=== PATIENT | male | born 1955 | race Caucasian/White ===

== ENCOUNTER 2020-08-02 09:53 | Outpatient (REF) | payer OTHER, SELFPAY ==
[2020-08-02 10:40] LABS: Estimated Average Glucose 140 mg/dL; Hemoglobin A1c % 6.5 %
[2020-08-02 11:01] LABS: Alanine Aminotransferase 16 U/L (0-40); Albumin Level 4.4 g/dL (3.5-5.0); Alkaline Phosphatase 69 U/L (39-117); Aspartate Amino Transferase 17 U/L (5-37); Bilirubin Direct 0.2 mg/dL (0.0-0.5); Bilirubin Total 0.6 mg/dL (0.0-1.0); Blood Urea Nitrogen 20 mg/dL (9-16); Cholesterol 131 mg/dL; Estimated Glomerular Filt Rate 48; Glucose Fasting 100 mg/dL (60-99); HDL Cholesterol 39 mg/dL; LDL Cholesterol Calculated 65 mg/dl; Potassium 5.4 mmol/l (3.3-5.1); Total Protein 6.9 g/dL (6.5-8.0); Triglycerides 138 mg/dL
[2020-08-02 11:51] LABS: Reflex LDLD? No
== END 2020-08-02 09:54 | disposition home or self-care (01) ==
LOC: HO.LNP 09:53
PROVIDERS: Visit Provider Internal Medicine
DX: E11.9 Type 2 diabetes mellitus without complications (principal); E78.00 Pure hypercholesterolemia, unspecified; I25.83 Coronary atherosclerosis due to lipid rich plaque; R79.9 Abnormal finding of blood chemistry, unspecified; E78.5 Hyperlipidemia, unspecified
CPT/HCPCS: 80061; 80076; 82565; 82947; 83036; 84132; 84520

== ENCOUNTER 2020-09-24 15:25 | Outpatient (REF) | payer OTHER, SELFPAY ==
[2020-09-24 15:53] LABS: Potassium 4.5 mmol/l (3.3-5.1)
== END 2020-09-24 15:26 | disposition home or self-care (01) ==
LOC: HO.LNP 15:25
PROVIDERS: Visit Provider Internal Medicine
DX: E87.5 Hyperkalemia (principal)
CPT/HCPCS: 84132

== ENCOUNTER 2021-01-11 09:54 | Outpatient (REF) | payer OTHER, SELFPAY ==
[2021-01-11 09:58] LABS: MANUAL DIFF FLAG NO
[2021-01-11 10:04] LABS: Basophils Absolute Auto 0.1 X10*3/uL (0.0-0.2); Basophils Percent Auto 0.8 % (0-2); Eosinophils Absolute Auto 0.4 X10*3/uL (0.0-0.4); Eosinophils Percent Auto 4.9 % (0-4); Hematocrit 41.8 % (42-52); Hemoglobin 13.5 g/dl (14.0-18.0); Imm Gran Abs Auto 0.03 X10*3/uL (0.00-0.03); Imm Gran Pct Auto 0.3 % (0.0-0.4); Lymphocytes Absolute Auto 1.7 X10*3/uL (1.2-4.9); Lymphocytes Percent Auto 19.5 % (20-40); Mean Corpuscular HGB Conc 32.3 g/dl (31.0-36.0); Mean Corpuscular Hemoglobin 28.6 pg (27.0-33.0); Mean Corpuscular Volume 88.6 fL (80-98); Mean Platelet Volume 9.6 fL (9.4-12.4); Monocytes Absolute Auto 0.7 X10*3/uL (0.1-1.2); Monocytes Percent Auto 7.5 % (2-11); Neutrophils Absolute Auto 5.8 X10*3/uL (2.0-8.3); Platelet Count 304 X10*3/uL (160-400); Red Blood Count 4.72 X10*6/uL (4.60-5.80); Red Cell Distribution Width 13.3 % (11.0-16.0); White Blood Count 8.7 X10*3/uL (4.8-10.8)
[2021-01-11 10:08] LABS: Glucose Urine UA NEG (NEG); Leukocyte Esterase Urine NEG (NEG); Nitrite Urine NEG (NEG); PH 6.5 (5.0-8.0); Urine Blood NEG (NEG); Urine Ketones NEG (NEG); Urine Protein NEG (NEG-TRACE)
[2021-01-11 10:09] LABS: Appearance Urine CLEAR; Color Urine YELLOW
[2021-01-11 10:11] LABS: Estimated Average Glucose 140 mg/dL; Hemoglobin A1c % 6.5 %
[2021-01-11 10:32] LABS: Alanine Aminotransferase 18 U/L (0-40); Alkaline Phosphatase 58 U/L (39-117); Anion Gap 12 (12-20); Aspartate Amino Transferase 15 U/L (5-37); Bilirubin Total 0.5 mg/dL (0.0-1.0); Blood Urea Nitrogen 18 mg/dL (9-16); Calcium 9.2 mg/dL (8.4-10.2); Carbon Dioxide 25 mmol/L (22-29); Chloride 104 mmol/L (96-108); Estimated Glomerular Filt Rate 46; Glucose Fasting 110 mg/dL (60-99); Potassium 5.4 mmol/L (3.3-5.1); Sodium 136 mmol/L (135-145); Total Protein 6.8 g/dL (6.5-8.0)
[2021-01-11 10:33] LABS: Cholesterol 109 mg/dL; HDL Cholesterol 35 mg/dL; LDL Cholesterol Calculated 50 mg/dl; Triglycerides 121 mg/dL
[2021-01-11 10:54] LABS: PSA,Total (Free>4and<10) 1.53 ng/mL (0.00-4.00)
[2021-01-11 11:05] LABS: Creatinine Urine 109.74 mg/dL; Microalbumin Urine < 5.0 mg/L
[2021-01-11 13:10] LABS: Reflex LDLD? No
== END 2021-01-11 09:55 | disposition home or self-care (01) ==
LOC: HO.LNP 09:54
PROVIDERS: Visit Provider Internal Medicine
DX: Z00.00 Encounter for general adult medical examination without abnormal findings (principal); Z12.5 Encounter for screening for malignant neoplasm of prostate; E11.9 Type 2 diabetes mellitus without complications; E78.00 Pure hypercholesterolemia, unspecified; I10 Essential (primary) hypertension
CPT/HCPCS: 80053; 80061; 81003; 82043; 83036; 84153; 85025

== ENCOUNTER 2021-01-26 08:23 | Outpatient (REF) | payer OTHER, SELFPAY ==
--- NOTE | ~2021-01-26 | US_ITS ---
EXAMINATION: US EXTRACRANIAL CAROTID DUPLEX, BILATERAL CLINICAL INFORMATION: Asymptomatic carotid artery stenosis. COMPARISON: 02/23/2020. TECHNIQUE: Real-time ultrasound and Doppler techniques (integrating B-mode 2-D vascular images, Doppler spectral analysis and color-flow Doppler imaging) were utilized to interrogate the extracranial carotid arteries, the vertebral arteries and proximal subclavian arteries bilaterally. The degree of stenosis is determined by criteria similar to NASCET. FINDINGS: Right Side: 1. There is large amount of heterogeneous atherosclerotic plaque seen in the bifurcation/proximal ICA region. 2. The common carotid artery PSV proximally is 106 cm/s and distally 108 cm/s. 3. The proximal internal carotid artery velocities are 230 cm/s systolic and 37 cm/s diastolic. 4. The proximal external carotid artery PSV is 190 cm/s. 5. The vertebral artery shows antegrade flow. 6. The subclavian artery waveforms are normal. Left Side: There is a 40% stenosis of the mid common carotid artery due to heterogeneous plaque. 1. There is large amount of heterogeneous atherosclerotic plaque seen in the bifurcation/proximal ICA region. 2. The common carotid artery PSV proximally is 114 cm/s and distally 159 cm/s. 3. The proximal internal carotid artery velocities are 196 cm/s systolic and 16 cm/s diastolic. 4. The proximal external carotid artery PSV is 207 cm/s. 5. The vertebral artery shows antegrade flow. 6. The subclavian artery waveforms are normal. US/US carotid duplex BI IMPRESSION: 1. RIGHT: Moderate, hemodynamically significant stenosis of the proximal right internal carotid artery corresponding to a 50-79% stenosis by velocity criteria. 2. LEFT: Moderate, hemodynamically significant stenosis of the proximal left internal carotid artery corresponding to a 50-79% stenosis by velocity criteria. 3. Disease category is stable on the right. Disease category has progressed from mild to moderate on the left compared to 02/23/2020.
== END 2021-01-26 08:24 | disposition home or self-care (01) ==
LOC: HO.HMGCX 08:23
PROVIDERS: PCP Internal Medicine; Visit Provider Surgery Vascular Surgery
DX: I65.23 Occlusion and stenosis of bilateral carotid arteries (principal)
CPT/HCPCS: 93880

== ENCOUNTER → 2021-03-09 09:42 | Outpatient (BNVA) | payer OTHER, SELFPAY | PROVIDERS: PCP Internal Medicine; Visit Provider Surgery Vascular Surgery ==

== ENCOUNTER 2021-04-18 09:47 | Outpatient (REF) | payer OTHER, SELFPAY ==
[2021-04-18 10:02] LABS: Potassium 5.3 mmol/L (3.3-5.1)
== END 2021-04-18 09:48 | disposition home or self-care (01) ==
LOC: HO.LNP 09:47
PROVIDERS: Visit Provider Internal Medicine
DX: E87.5 Hyperkalemia (principal)
CPT/HCPCS: 84132

== ENCOUNTER 2021-05-26 09:48 | Outpatient (REF) | payer OTHER, SELFPAY ==
[2021-05-26 10:13] LABS: Potassium 5.7 mmol/L (3.3-5.1)
== END 2021-05-26 09:49 | disposition home or self-care (01) ==
LOC: HO.LNP 09:48
PROVIDERS: Visit Provider Internal Medicine
DX: E87.5 Hyperkalemia (principal)
CPT/HCPCS: 84132

== ENCOUNTER 2021-05-29 09:52 | Outpatient (REF) | payer OTHER, SELFPAY ==
[2021-05-29 10:06] LABS: Potassium 5.1 mmol/L (3.3-5.1)
== END 2021-05-29 09:53 | disposition home or self-care (01) ==
LOC: HO.LNP 09:52
PROVIDERS: Visit Provider Internal Medicine
DX: E87.5 Hyperkalemia (principal)
CPT/HCPCS: 84132

== ENCOUNTER 2021-06-05 09:51 | Outpatient (REF) | payer OTHER, SELFPAY ==
[2021-06-05 10:02] LABS: Potassium 5.2 mmol/L (3.3-5.1)
== END 2021-06-05 09:52 | disposition home or self-care (01) ==
LOC: HO.LNP 09:51
PROVIDERS: Visit Provider Internal Medicine
DX: E87.5 Hyperkalemia (principal)
CPT/HCPCS: 84132

== ENCOUNTER 2021-07-07 09:56 | Outpatient (REF) | payer OTHER, SELFPAY ==
[2021-07-07 10:24] LABS: Potassium 4.9 mmol/L (3.3-5.1)
== END 2021-07-07 09:57 | disposition home or self-care (01) ==
LOC: HO.LNP 09:56
PROVIDERS: Visit Provider Internal Medicine
DX: E87.5 Hyperkalemia (principal)
CPT/HCPCS: 84132

== ENCOUNTER 2021-07-12 09:57 | Outpatient (REF) | payer OTHER, SELFPAY ==
[2021-07-12 10:20] LABS: Alanine Aminotransferase 12 U/L (0-40); Albumin Level 4.2 g/dL (3.5-5.0); Alkaline Phosphatase 59 U/L (39-117); Aspartate Amino Transferase 14 U/L (5-37); Bilirubin Direct 0.2 mg/dL (0.0-0.5); Bilirubin Total 0.5 mg/dL (0.0-1.0); Cholesterol 118 mg/dL; Glucose Fasting 101 mg/dL (60-99); HDL Cholesterol 40 mg/dL; LDL Cholesterol Calculated 58 mg/dl; Total Protein 6.7 g/dL (6.5-8.0); Triglycerides 102 mg/dL
[2021-07-12 10:27] LABS: Estimated Average Glucose 120 mg/dL; Hemoglobin A1c % 5.8 %
[2021-07-12 10:41] LABS: Reflex LDLD? No
== END 2021-07-12 09:58 | disposition home or self-care (01) ==
LOC: HO.LNP 09:57
PROVIDERS: Visit Provider Internal Medicine
DX: E11.9 Type 2 diabetes mellitus without complications (principal); E78.00 Pure hypercholesterolemia, unspecified
CPT/HCPCS: 80061; 80076; 82947; 83036

== ENCOUNTER 2022-01-16 07:54 | Outpatient (REF) | payer OTHER, SELFPAY ==
[2022-01-16 08:01] LABS: MANUAL DIFF FLAG NO
[2022-01-16 08:06] LABS: Basophils Percent Auto 0.5 % (0-2); Eosinophils Absolute Auto 0.3 X10*3/uL (0.0-0.4); Eosinophils Percent Auto 4.1 % (0-4); Hemoglobin 13.9 g/dl (14.0-18.0); Imm Gran Abs Auto 0.06 X10*3/uL (0.00-0.03); Imm Gran Pct Auto 0.7 % (0.0-0.4); Lymphocytes Absolute Auto 1.8 X10*3/uL (1.2-4.9); Lymphocytes Percent Auto 22.1 % (20-40); Mean Corpuscular HGB Conc 32.3 g/dl (31.0-36.0); Mean Corpuscular Hemoglobin 27.9 pg (27.0-33.0); Mean Corpuscular Volume 86.3 fL (80.0-98.0); Mean Platelet Volume 9.4 fL (9.4-12.4); Monocytes Absolute Auto 0.6 X10*3/uL (0.1-1.2); Monocytes Percent Auto 7.5 % (2-11); Neutrophils Absolute Auto 5.3 x10*3/uL (2.0-8.3); Neutrophils Percent Auto 65.1 % (45-73); Platelet Count 353 X10*3/uL (160-400); Red Blood Count 4.98 X10*6/uL (4.60-5.80); Red Cell Distribution Width 13.2 % (11.0-16.0); White Blood Count 8.1 X10*3/uL (4.8-10.8)
[2022-01-16 08:08] LABS: Appearance Urine CLEAR; Color Urine YELLOW; Glucose Urine UA NEG (NEG); Leukocyte Esterase Urine NEG (NEG); Nitrite Urine NEG (NEG); PH 5.5 (5.0-8.0); Specific Gravity - Urine >= 1.030 (1.005-1.025); Urine Blood NEG (NEG); Urine Ketones NEG (NEG); Urine Protein NEG (NEG-TRACE)
[2022-01-16 08:20] LABS: Mucus Urine 1+ /LPF; RBC Urine 0 /HPF (0); WBC Urine 0 /HPF (0-4)
[2022-01-16 08:22] LABS: Estimated Average Glucose 134 mg/dL; Hemoglobin A1c % 6.3 %
[2022-01-16 08:49] LABS: Alanine Aminotransferase 18 U/L (0-40); Albumin Level 4.2 g/dL (3.5-5.0); Alkaline Phosphatase 62 U/L (39-117); Anion Gap 14 (12-20); Aspartate Amino Transferase 17 U/L (5-37); Bilirubin Total 0.9 mg/dL (0.0-1.0); Blood Urea Nitrogen 24 mg/dL (9-16); Calcium 9.6 mg/dL (8.4-10.2); Carbon Dioxide 22 mmol/L (22-29); Chloride 107 mmol/L (96-108); Creatinine Urine 217.69 mg/dL; Estimated Glomerular Filt Rate 35; Glucose Fasting 113 mg/dL (60-99); Microalbum/Creatinine Ratio Ur 8.2 ug/mg cr; Potassium 5.6 mmol/L (3.3-5.1); Sodium 137 mmol/L (135-145)
== END 2022-01-16 07:55 | disposition home or self-care (01) ==
LOC: HO.LAB 07:54
PROVIDERS: Visit Provider Internal Medicine
DX: Z00.00 Encounter for general adult medical examination without abnormal findings (principal); E11.9 Type 2 diabetes mellitus without complications; E78.00 Pure hypercholesterolemia, unspecified; I10 Essential (primary) hypertension
CPT/HCPCS: 36415; 80053; 81001; 82043; 83036; 85025

== ENCOUNTER 2022-08-03 07:47 | Outpatient (REF) | payer OTHER, SELFPAY ==
[2022-08-03 08:14] LABS: Estimated Average Glucose 117 mg/dL; Hemoglobin A1c % 5.7 %
[2022-08-03 08:52] LABS: Alanine Aminotransferase 11 U/L (0-40); Albumin Level 4.3 g/dL (3.5-5.0); Alkaline Phosphatase 59 U/L (39-117); Aspartate Amino Transferase 13 U/L (5-37); Bilirubin Direct 0.3 mg/dL (0.0-0.5); Bilirubin Total 0.7 mg/dL (0.0-1.0); Cholesterol 120 mg/dL; Glucose Fasting 92 mg/dL (60-99); HDL Cholesterol 45 mg/dL; LDL Cholesterol Calculated 60 mg/dl; Total Protein 6.8 g/dL (6.5-8.0); Triglycerides 75 mg/dL
[2022-08-03 09:48] LABS: Reflex LDLD? No
== END 2022-08-03 07:48 | disposition home or self-care (01) ==
LOC: HO.LNP 07:47
PROVIDERS: PCP Internal Medicine; Visit Provider Internal Medicine
DX: E78.00 Pure hypercholesterolemia, unspecified (principal); E11.9 Type 2 diabetes mellitus without complications
CPT/HCPCS: 80061; 80076; 82947; 83036

== ENCOUNTER 2022-10-29 09:23 | Outpatient (REF) | payer OTHER, SELFPAY ==
--- NOTE | ~2022-10-29 | US_ITS ---
EXAMINATION: US EXTRACRANIAL CAROTID DUPLEX, BILATERAL CLINICAL INFORMATION: Carotid stenosis COMPARISON: 01/26/2021 and 02/23/2020 TECHNIQUE: Real-time ultrasound and Doppler techniques (integrating B-mode 2-D vascular images, Doppler spectral analysis and color-flow Doppler imaging) were utilized to interrogate the extracranial carotid arteries, the vertebral arteries and proximal subclavian arteries bilaterally. The degree of stenosis is determined by criteria similar to NASCET. FINDINGS: Right Side: 1. There is moderate atherosclerotic plaque seen in the bifurcation/proximal ICA region. 2. The common carotid artery PSV proximally is 73.3 cm/s and distally 86.2 cm/s. 3. The proximal internal carotid artery velocities are 186 cm/s systolic and 31.4 cm/s diastolic. 4. The proximal external carotid artery PSV is 186 cm/s. 5. The vertebral artery shows antegrade flow. 6. The subclavian artery waveforms are normal. Left Side: 1. There is moderate atherosclerotic plaque seen in the bifurcation/proximal ICA region. 2. The common carotid artery PSV proximally is 111 cm/s and distally 119 cm/s. 3. The proximal internal carotid artery velocities are 134 cm/s systolic and 19.6 cm/s diastolic. 4. The proximal external carotid artery PSV is 183 cm/s. 5. The vertebral artery shows antegrade flow. 6. The subclavian artery waveforms are normal. US/US carotid duplex BI IMPRESSION: 1. RIGHT: Moderate, hemodynamically significant stenosis of the proximal right internal carotid artery corresponding to a 50-79% stenosis by velocity criteria. 2. LEFT: Moderate, hemodynamically significant stenosis of the proximal left internal carotid artery corresponding to a 50-79% stenosis by velocity criteria. 3. There is no change in the category severity of disease when compared to the previous study dated 01/26/2021.
== END 2022-10-29 09:24 | disposition home or self-care (01) ==
LOC: HO.HMGCX 09:23
PROVIDERS: PCP Internal Medicine; Visit Provider Internal Medicine
DX: I65.23 Occlusion and stenosis of bilateral carotid arteries (principal)
CPT/HCPCS: 93880

== ENCOUNTER → 2022-12-13 14:00 | Outpatient (BNVA) | payer OTHER, SELFPAY | PROVIDERS: PCP Internal Medicine; Visit Provider Surgery Vascular Surgery | DX: Z13.89 Encounter for screening for other disorder (principal) ==

== ENCOUNTER 2023-02-01 07:36 | Outpatient (REF) | payer OTHER, SELFPAY ==
[2023-02-01 07:40] LABS: MANUAL DIFF FLAG NO
[2023-02-01 07:45] LABS: Basophils Absolute Auto 0.1 X10*3/uL (0.0-0.2); Basophils Percent Auto 1.2 % (0-2); Eosinophils Absolute Auto 0.4 X10*3/uL (0.0-0.4); Eosinophils Percent Auto 4.2 % (0-4); Hematocrit 42.6 % (42.0-52.0); Imm Gran Abs Auto 0.05 X10*3/uL (0.00-0.03); Imm Gran Pct Auto 0.5 % (0.0-0.4); Lymphocytes Absolute Auto 2.2 X10*3/uL (1.2-4.9); Lymphocytes Percent Auto 23.5 % (20-40); Mean Corpuscular HGB Conc 32.9 g/dl (31.0-36.0); Mean Corpuscular Volume 88.4 fL (80.0-98.0); Mean Platelet Volume 9.5 fL (9.4-12.4); Monocytes Absolute Auto 0.7 X10*3/uL (0.1-1.2); Monocytes Percent Auto 7.7 % (2-11); Neutrophils Absolute Auto 5.7 x10*3/uL (2.0-8.3); Neutrophils Percent Auto 62.9 % (45-73); Platelet Count 293 X10*3/uL (160-400); Red Blood Count 4.82 X10*6/uL (4.60-5.80); Red Cell Distribution Width 13.3 % (11.0-16.0); White Blood Count 9.1 X10*3/uL (4.8-10.8)
[2023-02-01 07:50] LABS: Appearance Urine Cloudy; Color Urine Yellow; Glucose Urine UA Negative (Negative); Leukocyte Esterase Urine Negative (Negative); Nitrite Urine Negative (Negative); Specific Gravity - Urine 1.015 (1.005-1.025); Urine Blood Negative (Negative); Urine Ketones Negative (Negative); Urine Protein Negative (Neg-Trace)
[2023-02-01 07:54] LABS: Bacteria Urine None Seen (None Seen); Hyaline Casts Urine 0-2 /LPF (0-2); RBC Urine 0-2 /HPF (0-2); Squamous Epithelial Cell Urine 0-2 /HPF (0-2); WBC Urine 0-5 /HPF (0-5)
[2023-02-01 08:18] LABS: Estimated Average Glucose 108 mg/dL; Hemoglobin A1c % 5.4 %
[2023-02-01 09:33] LABS: Alanine Aminotransferase 11 U/L (0-40); Albumin Level 4.3 g/dL (3.5-5.0); Alkaline Phosphatase 54 U/L (39-117); Anion Gap 15 (12-20); Aspartate Amino Transferase 13 U/L (5-37); Bilirubin Total 0.9 mg/dL (0.0-1.0); Blood Urea Nitrogen 26 mg/dL (9-16); Calcium 9.7 mg/dL (8.4-10.2); Carbon Dioxide 23 mmol/L (22-29); Chloride 106 mmol/L (96-108); Cholesterol 119 mg/dL; Estimated Glomerular Filt Rate 35; Glucose Fasting 79 mg/dL (60-99); HDL Cholesterol 43 mg/dL; LDL Cholesterol Calculated 59 mg/dl; Potassium 5.9 mmol/L (3.3-5.1); Sodium 138 mmol/L (135-145); Total Protein 6.7 g/dL (6.5-8.0); Triglycerides 86 mg/dL
[2023-02-01 09:45] LABS: Creatinine Urine 93.05 mg/dL; Microalbumin Urine < 5.0 mg/L
== END 2023-02-01 07:37 | disposition home or self-care (01) ==
LOC: HO.LNP 07:36
PROVIDERS: PCP Internal Medicine; Visit Provider Internal Medicine
DX: Z00.00 Encounter for general adult medical examination without abnormal findings (principal); E78.6 Lipoprotein deficiency; I12.9 Hypertensive chronic kidney disease with stage 1 through stage 4 chronic kidney disease, or unspecified chronic kidney disease; E11.22 Type 2 diabetes mellitus with diabetic chronic kidney disease; N18.9 Chronic kidney disease, unspecified
CPT/HCPCS: 80053; 80061; 81001; 82043; 83036; 85025

== ENCOUNTER 2023-02-04 07:45 | Outpatient (REF) | payer OTHER, SELFPAY | END 2023-02-04 07:46 | disposition home or self-care (01) | LOC: HO.LNP 07:45 | PROVIDERS: PCP Internal Medicine; Visit Provider Internal Medicine | DX: E87.5 Hyperkalemia (principal) | CPT/HCPCS: 84132 ==

== ENCOUNTER 2023-02-08 11:13 | Outpatient (REF) | payer OTHER, SELFPAY ==
[2023-02-08 12:11] LABS: Potassium 4.5 mmol/L (3.3-5.1)
== END 2023-02-08 11:14 | disposition home or self-care (01) ==
LOC: HO.LNP 11:13
PROVIDERS: Visit Provider Internal Medicine
DX: E87.5 Hyperkalemia (principal)
CPT/HCPCS: 84132

== ENCOUNTER 2023-03-12 07:51 | Outpatient (REF) | payer OTHER, SELFPAY ==
[2023-03-12 09:05] LABS: Potassium 3.6 mmol/L (3.3-5.1)
== END 2023-03-12 07:52 | disposition home or self-care (01) ==
LOC: HO.LNP 07:51
PROVIDERS: PCP Internal Medicine; Visit Provider Internal Medicine
DX: E87.5 Hyperkalemia (principal)
CPT/HCPCS: 84132

== ENCOUNTER 2023-08-09 07:49 | Outpatient (REF) | payer OTHER, SELFPAY ==
[2023-08-09 08:03] LABS: Estimated Average Glucose 131 mg/dL; Hemoglobin A1c % 6.2 % (<6.0)
[2023-08-09 08:10] LABS: Alanine Aminotransferase 19 U/L (0-40); Albumin Level 4.3 g/dL (3.5-5.0); Alkaline Phosphatase 70 U/L (39-117); Aspartate Amino Transferase 24 U/L (5-37); Bilirubin Direct 0.3 mg/dL (0.0-0.5); Bilirubin Total 0.9 mg/dL (0.0-1.0); Glucose Fasting 103 mg/dL (60-99); Total Protein 6.9 g/dL (6.5-8.0)
[2023-08-09 08:18] LABS: Cholesterol 131 mg/dL (<200); HDL Cholesterol 37 mg/dL (>40); LDL Cholesterol Calculated 67 mg/dL (<100); Triglycerides 139 mg/dL (<150)
[2023-08-09 08:25] LABS: Reflex LDLD? No
== END 2023-08-09 07:50 | disposition home or self-care (01) ==
LOC: HO.LNP 07:49
PROVIDERS: PCP Internal Medicine; Visit Provider Internal Medicine
DX: E11.9 Type 2 diabetes mellitus without complications (principal); E78.00 Pure hypercholesterolemia, unspecified
CPT/HCPCS: 80061; 80076; 82947; 83036

== ENCOUNTER 2023-10-15 17:12 | Inpatient (IN) | payer OTHER, SELFPAY ==
--- NOTE | ~2023-10-15 | MR_ITS ---
EXAMINATION: MR BRAIN WITHOUT CONTRAST CLINICAL INFORMATION: Weakness. COMPARISON: Head CT dated 10/15/2023. MRI from 02/27/2016. TECHNIQUE: Multiplanar, multisequence imaging of the brain was performed without contrast. FINDINGS: No diffusion abnormalities are identified to suggest an acute infarct. No mass effect or midline shift is seen. There is a chronic infarct with encephalomalacia in the right frontal lobe. Additional focal gliosis noted in the right occipital lobe. Mild chronic white matter microangiopathic changes are visible. No extra-axial fluid collections are seen. The brainstem is normal. Small chronic infarcts visible in the right cerebellar hemisphere. The gradient refocused acquisition is normal. Moderate diffuse brain parenchymal volume loss evident with concordant ex vacuo dilatation of the ventricles. The craniovertebral junction, marrow signal, and midline structures are normal. The major intracranial flow voids at the level of the [place] are preserved. The dural venous sinus flow voids are maintained. The mastoid air cells and paranasal sinuses are well aerated. MR/MR head/brain wo con IMPRESSION: No acute intracranial process. 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 Additional small chronic infarcts in the right cerebellar hemisphere. Mild chronic white matter microangiopathy and moderate diffuse parenchymal volume loss.
--- NOTE | ~2023-10-15 | XR_ITS ---
EXAMINATION: XR CHEST CLINICAL INFORMATION: Question pneumonia COMPARISON: None available. TECHNIQUE: Frontal view of the chest was obtained. FINDINGS: The lungs are clear with no focal consolidation. No evidence of pneumothorax, pulmonary edema, or pleural effusions. The cardiomediastinal contour is unremarkable. Sternal wires are present. No acute osseous findings are seen. XR/XR chest 1V IMPRESSION: No acute cardiopulmonary findings.
--- NOTE | ~2023-10-15 | CT_ITS ---
EXAMINATION: CT HEAD WITHOUT CONTRAST CLINICAL INFORMATION: bilateral legs/arms numbness/tingling, strength COMPARISON: MRI of the brain January 09, 2016, February 27, 2016 TECHNIQUE: Contiguous axial imaging was performed from the skull base to vertex without intravenous administration of contrast. Coronal and sagittal reformatted images are performed at the CT scanner. [This CT examination was performed using dose optimization techniques as appropriate, variously including the following: *Automated exposure control *Adjustment of mA and/or kV according to patient size (this includes techniques or standardized protocols for targeted exams where dose is matched to indication/reason for exam; i.e. extremities or head) *Use of iterative reconstruction technique] DLP: 820 mGy-cm. FINDINGS: There is no evidence of acute intracranial hemorrhage or acute territorial infarction. Focal encephalomalacia in the right frontal lobe and a small focal area of hypodensity in superior right cerebellar hemisphere consistent with old infarcts No new lesions. No abnormal mass-effect or midline shift is seen. [place] to white matter differentiation is well preserved. No extra-axial fluid collections are identified. There is generalized global volume loss. There is mild prominence of the ventricles and the sulci . There is mild hypodensity of the periventricular white matter due to chronic small vessel ischemic disease. There are vascular calcifications of the internal carotid arteries bilaterally. There is no osseous abnormality. The mastoid air cells and visualized portions of the paranasal sinuses are well-aerated. CT/CT head/brain wo IV con IMPRESSION: No acute intracranial pathology.
[2023-10-15 17:27] VITALS: BP 124/55; BP 146/82; PULSE 109; PULSE 112; RESP 12; TEMP 37.4; O2SAT 95; O2SAT 96; BMI 33.7
--- NOTE | 2023-10-15 17:57 | ECG_ITS ---
Test Reason : FALL Blood Pressure : / mmHG Vent. Rate : 100 BPM Atrial Rate : 100 BPM P-R Int : 184 ms QRS Dur : 096 ms QT Int : 358 ms P-R-T Axes : 047 062 039 degrees QTc Int : 461 ms Normal sinus rhythm Normal ECG No previous ECGs available Referred By: Elissa Sommers Electronically Signed By:Yvan Price
--- NOTE | 2023-10-15 18:20 | ED.GENADULT ---
HPI - General Adult General Chief complaint: Fall Stated complaint: fall,can't stand,lightheaded since last night.-loc Time Seen by Provider: 10/15/23 17:37 Source: patient and family Mode of arrival: EMS Limitations: no limitations History of Present Illness HPI narrative: To the emergency room complaining of new onset of numbness tingling in both feet that started approximately 2 days ago. Patient states it started out as numbness tingling in his toes and started moving upwards towards his feet and his lower extremities. Also, patient has decreased strength in both lower extremities and both hands. Patient states that since yesterday he has fallen 5 times, each time had a more difficult time getting up. The 5th time, patient was unable to get up. 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 Patient's called the neighbor who found the patient on the floor. Patient states that he has been awake, alert, no head injury or loss of consciousness. Patient states that he does have some mobility issues due to previous spinal fractures. Patient states that he did not hit his back or lower spine. Patient denies urinary/fecal incontinence/retention. But has never affected his extremities and has never been this weak. And now he is concerned that his hands are weak as well. Patient states that even though he tries as far as he can not to make a heart fist, he can barely close his hands. Patient denies any viral infections in the last couple of weeks. Patient states that he has history of strokes/TIAs. According to the patient's , patient does have some minor mobility issues due to prior cervical spine fractures. However, at baseline patient is independent, able to walk fairly normal with normal strength. Related Data Home Medications Medication Instructions Recorded Confirmed aspirin 325 mg tablet 325 mg PO DAILY 03/09/21 10/15/23 atorvastatin 10 mg tablet 10 mg PO DAILY 03/09/21 10/15/23 lisinopril 40 mg tablet 40 mg PO DAILY 03/09/21 10/15/23 sitagliptin phosphate 100 mg 100 mg PO DAILY 03/09/21 10/15/23 tablet (Januvia) amlodipine 10 mg tablet 10 mg PO DAILY 10/15/23 10/15/23 cholecalciferol (vitamin D3) 25 25 mcg PO DAILY 02/13/24 02/13/24 mcg (1,000 unit) tablet cyanocobalamin (vitamin B-12) 1,000 mcg PO DAILY 10/15/23 10/15/23 1,000 mcg capsule ezetimibe 10 mg tablet 10 mg PO DAILY 10/15/23 10/15/23 furosemide 40 mg tablet 40 mg PO DAILY 10/15/23 10/15/23 metformin 500 mg tablet,extended 1,000 mg PO BID 10/15/23 10/15/23 release 24 hr Allergies Allergy/AdvReac Type Severity Reaction Status Date / Time No Known Allergies Allergy Verified 12/13/22 14:07 Review of Systems Review of Systems: Constitutional : No Weight loss, No Fever, No Chills, No Night Sweats, No Fatigue, No Malaise ENT/Mouth : No Hearing loss, No Ear Pain, No Nasal Congestion, No Sinus Pain, No Hoarseness, No sore throat, No Rhinorrhea, No Swallowing Difficulty Eyes: No Eye Pain, No Swelling, No Redness, No Foreign Body, No Discharge, No Vision Changes Cardiovascular : No Chest Pain, No SOB, No Dyspnea on Exertion, No Orthopnea, No Edema, No Palpitations Respiratory : No Cough, No Sputum, No Wheezing, No Smoke Exposure, No Dyspnea Gastrointestinal : No Nausea, No Vomiting, No Diarrhea, No Constipation, No abdominal Pain, No Hematochezia, No Melena Genitourinary : no irregular bleeding, No Dysuria, No Urinary Frequency, No Hematuria, No Urinary Incontinence, No Urgency, No Flank Pain, No Urinary Flow Changes, No Hesitancy Musculoskeletal : No joint pain, No Myalgias, No Joint Swelling Skin : No Skin Lesions, No rash Neuro : Multiple falls, numbness tingling in feet, significant weakness in both upper and lower extremities bilaterally Psych : No Anxiety/Panic, No Depression, No SI/HI/AH/VH, No Social Issues, Heme/Lymph: No Bruising, No Bleeding,No Lymphadenopathy Endocrine : No Polyuria, No Polydipsia, No Temperature Intolerance [facility] Past Medical History Medical History (Updated 10/15/23 @ 22:28 by Elissa Sommers MD) Hyperlipidemia History of TIAs Hypertension Bilateral carotid artery stenosis Diabetic acidosis, type II Surgical History (Updated 10/15/23 @ 18:23 by Elissa Sommers MD) H/O heart bypass surgery Family History Family History Daughter No problems noted. Son No problems noted. Father No problems noted. Mother No problems noted. Sister No problems noted. Social History Social History Patient Tobacco Use Status: Former Tobacco user Tobacco use type: Cigarette Smoked in Last 30 Days: No Use of substances other than those prescribed or required for medical reasons: No Advance Directives: No Advance Directives Information Provided: No Physical Exam ED Vital Signs: Vital Signs - 24 hr 10/15/23 17:27 10/15/23 19:13 10/15/23 20:02 Temperature 99.3 F 100.6 F H 100.6 F H Pulse Rate 109 H 102 H Respiratory Rate 12 20 Blood Pressure 124/55 L 138/69 Pulse Oximetry 95 95 Oxygen Delivery Method Room Air Room Air BMI result Body Mass Index 33.7 Const Other: Appearance: Alert. Oriented X3. No acute distress. Eyes: Pupils equal, round and reactive to light. ENT: Pharynx normal. Neck: Normal inspection. Neck supple. No lymph nodes noted. No crepitus CVS: Normal heart rate and rhythm. Pulses normal. Normal S1 and S2 Respiratory: No respiratory distress. Breath sounds normal. No Wheezing. No rales . No respiratory distress, no difficulty breathing, normal breathing. Abdomen: Soft and nontender. No rigidity. No distention. Skin: Skin warm and dry. Normal skin color. Normal skin turgor. Extremities: No lower extremity edema. No Lacerations. No Rash Neuro: Oriented X 3. Patient's cranial nerves 2-12 of grossly intact, normal speech. Patient has significant decrease bilateral upper extremities, 1/5 . 2/5 in bilateral lower extremities. Patellar reflexes are bilaterally absent. Patient was asked to try to put himself back in bed. Patient was able to lift his legs bilaterally only mcc due to weakness. Patient needed assistance. Patient was not able to stand up all the way. Psych: calm, cooperative, normal affect Course Course Course Narrative: -all of patient's labs and imaging pending -discussed with the patient that his symptoms are concerning for Guillain-Frederick, we will also obtain a lumbar puncture -discussed with the patient and his that overall patient will be staying in the hospital, both agree Medications Administered Generic Name Dose Route Start Last Admin Trade Name Freq PRN Reason Stop Dose Admin Diphenhydramine HCl 50 mg 10/15/23 22:30 10/15/23 22:27 Diphenhydramine Hcl 50 Mg/Ml Vial IVPUSH 10/15/23 22:31 50 mg ONCE ONE Administration Ibuprofen 400 mg 10/15/23 22:30 10/15/23 22:27 Ibuprofen 400 Mg Tablet PO 10/15/23 22:31 400 mg ONCE ONE Administration Methylprednisolone Sodium Succinate 40 mg 10/15/23 22:30 10/15/23 22:27 Methylprednisolone Sod Succ 40 Mg/Ml Vial IVPUSH 10/15/23 22:31 40 mg ONCE ONE Administration Discontinued Medications Generic Name Dose Route Start Last Admin Trade Name Freq PRN Reason Stop Dose Admin Acetaminophen 975 mg 10/15/23 19:34 10/15/23 21:44 Acetaminophen 325 Mg Tablet PO 10/15/23 19:35 975 mg ONCE ONE Administration Procedures Lumbar Puncture Time Out Performed: Yes Patient Position: upright Skin Prep: Povidone-Iodine 1% Local Anesthetic: lidocaine 1% Amount of anesthesia used (mL): 5 Spinal Needle Gauge: 20G Interspace Used: L4-L5 Fluid Initially Obtained: clear Complications: none Medical Decision Making Medical Decision Making MDM Narrative: -my interpretation of head CT: Hypoattenuation/encephalomalacia in the right frontal lobe. Possibly from old stroke. Patient has history of previous CVAs -my interpretation of labs, normal hematology, chemistry shows a creatinine of 1.84 which is chronic and at baseline for the patient. Also, patient tested positive for COVID-19. Patient is surprised , states that he has not had any URI symptoms. Therefore, it is unclear how long patient has had COVID. -my interpretation of CSF: Protein is slightly increased. Rest of the labs are pending. -I discussed the above-mentioned with Dr. Nunez from Neurology. 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 We will start IVIG immediately -I discussed the patient with Dr. Crowley, patient being admitted to the hospitalist team, Dr. Nuenz will follow up with the patient in the morning Differential Diagnosis Differential Diagnoses: The differential diagnosis associated with the presentation includes (Guillain-Frederick, CVA, multiple sclerosis) Admission/Observation Consideration of admission/observation: Escalation of care including admission/observation considered Consult Healthcare Provider Management of the patient was discussed with: Hospitalist and Sap [employer] Developer Lab Data MDM Lab Attestation statement: I reviewed the patient's lab results. 10/15/23 18:45 10/15/23 18:45 Labs: Lab Results 10/15/23 10/15/23 10/15/23 Range/Units 18:45 20:40 20:40 WBC 10.2 (4.8-10.8) X10*3/uL RBC 4.85 (4.60-5.80) X10*6/uL Hgb 13.9 L (14.0-18.0) g/dl Hct 40.7 L (42.0-52.0) % MCV 83.9 (80.0-98.0) fL MCH 28.7 (27.0-33.0) pg MCHC 34.2 (31.0-36.0) g/dl RDW 13.1 (11.0-16.0) % Plt Count 262 (160-400) X10*3/uL MPV 9.3 L (9.4-12.4) fL Immature Gran % (Auto) 0.5 H (0.0-0.4) % Neut % (Auto) 85.9 H (45-73) % Lymph % (Auto) 4.2 L (20-40) % [place] % (Auto) 8.5 (2-11) % Eos % (Auto) 0.3 (0-4) % Baso % (Auto) 0.6 (0-2) % Lymph # (Auto) 0.4 L (1.2-4.9) X10*3/uL [place] # (Auto) 0.9 (0.1-1.2) X10*3/uL Eos # (Auto) 0.0 (0.0-0.4) X10*3/uL Baso # (Auto) 0.1 (0.0-0.2) X10*3/uL Abs Immat Gran (auto) 0.05 H (0.00-0.03) X10*3/uL Absolute Neuts (auto) 8.8 H (2.0-8.3) x10*3/uL Absolute Nucleated RBC 0.000 (0.0-0.012) X10*3/uL Nucleated RBC % (auto) 0.0 (0.0-0.2) /100WBC PT 13.9 H (11.1-13.3) SEC INR 1.1 (0.9-1.1) Sodium 139 (135-145) mmol/L Potassium 3.5 (3.3-5.1) mmol/L Chloride 100 (96-108) mmol/L Carbon Dioxide 27 (22-29) mmol/L Anion Gap 16 (12-20) BUN 18 H (9-16) mg/dL Creatinine 1.84 H (0.5-1.4) mg/dL Estim Creat Clear Calc 43.5 Estimated GFR 37 Random Glucose 157 H (60-115) mg/dL Lactic Acid 1.7 (0.5-2.0) mmol/L Calcium 9.7 (8.4-10.2) mg/dL Magnesium 1.6 (1.6-2.6) mg/dL Total Bilirubin 0.6 (0.0-1.0) mg/dL Direct Bilirubin 0.3 (0.0-0.5) mg/dL AST 29 (5-37) U/L ALT 20 (0-40) U/L Alkaline Phosphatase 63 (39-117) U/L Troponin I High Sens 6.8 (<3.5-35.0) ng/L Total Protein 7.7 (6.5-8.0) g/dL Albumin 4.5 (3.5-5.0) g/dL Vitamin B12 1182 H (200-900) pg/mL Folate 11.5 (> or = 4.0) ng/mL TSH 1.32 (0.32-4.0) uIU/mL CSF Tube Number 2 4 CSF Volume 4.5 ML CSF Appearance CLEAR CSF Color COLORLESS CSF WBC 1 MM*3 CSF RBC 0 MM*3 CSF Lymphocytes 100 % CSF Appearance (b) Clear, Colorless CSF Glucose 92 mg/dL CSF Total Protein 50.9 H (15-45) mg/dL Ethyl Alcohol < 10 mg/dL COVID-19 (KB) Positive A (Negative) COVID-19 Clin Com See Note Influenza Type A (RAJI) Negative (Negative) Influenza Type B (RAJI) Negative (Negative) Influenza A & B Note See Note Independent Interpretation I performed an independent interpretation of an: EKG (My interpretation of EKG, normal sinus rhythm, heart rate 100, no ST segment depression or elevation, no T-wave inversion, QTC 461) and CT Scan Radiology Impression Discussion of test interpretation with radiology: I have reviewed the radiologist's reading. Radiologist Impression: FINDINGS: There is no evidence of acute intracranial hemorrhage or acute territorial infarction. Focal encephalomalacia in the right frontal lobe and a small focal area of hypodensity in superior right cerebellar hemisphere consistent with old infarcts No new lesions. No abnormal mass-effect or midline shift is seen. Ye[place] to white matter differentiation is well preserved. No extra-axial fluid collections are identified. There is generalized global volume loss. There is mild prominence of the ventricles and the sulci . There is mild hypodensity of the periventricular white matter due to chronic small vessel ischemic disease. There are vascular calcifications of the internal carotid arteries bilaterally. There is no osseous abnormality. The mastoid air cells and visualized portions of the paranasal sinuses are well-aerated. CT/CT head/brain wo IV con IMPRESSION: No acute intracranial pathology. Independent Historian Clinical information obtained from an independent historian. History obtained from or confirmed by: Spouse Critical Care Time Critical Care Time Critical Care Time: Yes Total Critical Care Time: 120 Attestation: I have personally provided critical care time. Time includes review of lab data, radiology results, discussion with consultants, and monitoring for potential decompensation. Intervention performed as documented. Discharge Plan Discharge Clinical Impression: Guillain-Frederick, COVID-19 Patient Disposition: Admitted As Inpatient
[2023-10-15 18:53] LABS: MANUAL DIFF FLAG NO
[2023-10-15 18:55] LABS: Basophils Absolute Auto 0.1 X10*3/uL (0.0-0.2); Basophils Percent Auto 0.6 % (0-2); Eosinophils Percent Auto 0.3 % (0-4); Hematocrit 40.7 % (42.0-52.0); Hemoglobin 13.9 g/dl (14.0-18.0); Imm Gran Abs Auto 0.05 X10*3/uL (0.00-0.03); Imm Gran Pct Auto 0.5 % (0.0-0.4); Lymphocytes Absolute Auto 0.4 X10*3/uL (1.2-4.9); Lymphocytes Percent Auto 4.2 % (20-40); Mean Corpuscular HGB Conc 34.2 g/dl (31.0-36.0); Mean Corpuscular Hemoglobin 28.7 pg (27.0-33.0); Mean Corpuscular Volume 83.9 fL (80.0-98.0); Mean Platelet Volume 9.3 fL (9.4-12.4); Monocytes Absolute Auto 0.9 X10*3/uL (0.1-1.2); Monocytes Percent Auto 8.5 % (2-11); Neutrophils Absolute Auto 8.8 x10*3/uL (2.0-8.3); Neutrophils Percent Auto 85.9 % (45-73); Platelet Count 262 X10*3/uL (160-400); Red Blood Count 4.85 X10*6/uL (4.60-5.80); Red Cell Distribution Width 13.1 % (11.0-16.0); White Blood Count 10.2 X10*3/uL (4.8-10.8)
[2023-10-15 19:04] LABS: INTERNATIONAL NORM RATIO 1.1 (0.9-1.1); Prothrombin Time 13.9 SEC (11.1-13.3)
[2023-10-15 19:06] LABS: Lactic Acid 1.7 mmol/L (0.5-2.0)
[2023-10-15 19:12] LABS: IDNOW Serial# 152EDE1D
[2023-10-15 19:13] VITALS: BP 138/69; PULSE 102; RESP 20; TEMP 38.1; O2SAT 95
[2023-10-15 19:13] LABS: COVID-19 Test Positive (Negative); IDNOW Serial# 08D9AD1C; Influenza A Negative (Negative); Influenza B2 Negative (Negative)
[2023-10-15 19:17] LABS: Troponin-I High Sensitivity 6.8 ng/L (<3.5-35.0)
[2023-10-15 19:24] LABS: Alanine Aminotransferase 20 U/L (0-40); Albumin Level 4.5 g/dL (3.5-5.0); Alkaline Phosphatase 63 U/L (39-117); Anion Gap 16 (12-20); Aspartate Amino Transferase 29 U/L (5-37); Bilirubin Direct 0.3 mg/dL (0.0-0.5); Bilirubin Total 0.6 mg/dL (0.0-1.0); Blood Urea Nitrogen 18 mg/dL (9-16); Calcium 9.7 mg/dL (8.4-10.2); Carbon Dioxide 27 mmol/L (22-29); Chloride 100 mmol/L (96-108); Creatinine Clr Calc Pharmacy 43.5; Estimated Glomerular Filt Rate 37; Ethanol < 10 mg/dL; Glucose Random 157 mg/dL (60-115); Magnesium 1.6 mg/dL (1.6-2.6); Potassium 3.5 mmol/L (3.3-5.1); Sodium 139 mmol/L (135-145); Total Protein 7.7 g/dL (6.5-8.0)
[2023-10-15 19:33] LABS: TSH reflex Free T4 1.32 uIU/mL (0.32-4.0)
[2023-10-15 20:02] VITALS: TEMP 38.1
[2023-10-15 20:47] LABS: CSF Appearance Clear, Colorless; CSF Tube # 2
[2023-10-15 20:48] LABS: Oligoclonal Serum Yes
[2023-10-15 21:10] LABS: Glucose CSF 92 mg/dL; Total Protein CSF 50.9 mg/dL (15-45)
[2023-10-15 21:31] LABS: Appearance CSF CLEAR; CSF Tube # 4; CSF Volume 4.5 ML; Color CSF COLORLESS; Red Blood Cell CSF 0 MM*3
[2023-10-15 21:37] LABS: Folate 11.5 ng/mL (> or = 4.0); Vitamin B12 1182 pg/mL (200-900)
[2023-10-15] MEDS: Acetaminophen 325 MG TABLET 975 MG PO (21:44)
--- NOTE | 2023-10-15 22:13 | PHA.MEDREC ---
Pharmacy Consult ? Medication Reconciliation Pharmacy has completed the medication reconciliation. Patient confirmed medications. Patient unsure about lasix and vitamins therefore called who confirmed, Isela Case, [facility]
[2023-10-15 22:17] LABS: Lymphocytes CSF 100 %; White Blood Cell CSF 1 MM*3
[2023-10-15] MEDS: Ibuprofen 400 MG TABLET PO (22:27)
[2023-10-15] MEDS: methylPREDNISolone Sod Succ 40 MG/ML VIAL IVPUSH (22:27)
[2023-10-15] MEDS: diphenhydrAMINE HCL 50 MG/ML VIAL IVPUSH (22:27)
--- NOTE | 2023-10-15 22:33 | P.HPHOSP_ITS ---
History of Present Illness Date of Service: 10/15/23 Chief Complaint: Weakness This is a 67-year-old male with pertinent history of juh-zyuphcf-omsswcgji diabetes mellitus, CAD status post CABG, essential hypertension, mixed hyperlipidemia who presents to the emergency department for evaluation of lower extremity weakness. Patient states that he has had progressive weakness of the lower extremities over the last 1 week. Also reports frequent falls and difficulty ambulation due to lower extremity weakness. He was found on the floor due to difficulty ambulation by his . He denies loss of consciousness, rhythmic jerking movement of extremities, tongue bite. States he has had tingling and numbness of lower extremities that has been ongoing for the last few years. Also reports weakness of upper extremities and difficulty making a fist but unsure if it is chronic. No diarrhea, fever or chills. No sick contacts. No chest discomfort, palpitations, abdominal pain, changes in urinary habits. Does have history of previous cervical spinal fractures and questionable history of TIAs but at baseline patient is independent with activities of daily living. Patient denies any difficulty breathing or dysphagia In the emergency department, lumbar puncture was performed. CSF protein was noted to be mildly elevated and Neurology was consulted who requested IVIG and admission. Review of Systems 2 Constitutional: Constitutional: Reports no additional constitutional complaints, Reports frequent falls and Reports weakness Cardiovascular: Cardiovascular: Reports no additional cardiovascular complaints Respiratory: Respiratory: Reports no additional respiratory complaints Gastrointestinal: Gastrointestinal: Reports no additional gastrointestinal complaints Genitourinary: Genitourinary: Reports no additional male genitourinary complaints Musculoskeletal: Musculoskeletal: Reports tingling Neurologic: Reports frequent falls, Reports tingling, Reports paresthesias and Reports weakness [facility] Medical History Hyperlipidemia History of TIAs Hypertension Bilateral carotid artery stenosis Diabetic acidosis, type II Family History Daughter No problems noted. Son No problems noted. Father No problems noted. Mother No problems noted. Sister No problems noted. Surgical History H/O heart bypass surgery Social History Patient Tobacco Use Status: Former Tobacco user Tobacco use type: Cigarette Smoked in Last 30 Days: No Use of substances other than those prescribed or required for medical reasons: No Advance Directives: No Advance Directives Information Provided: No Meds Allergies Allergy/AdvReac Type Severity Reaction Status Date / Time No Known Allergies Allergy Verified 12/13/22 14:07 Active Medications: Current Medications Immune Globulin (Gammagard 10%) 200 mls @ 50 mls/hr IV ONCE ONE Stop: 10/16/23 02:59 Immune Globulin (Gammagard 10%) 200 mls @ 50 mls/hr IV ONCE ONE Stop: 10/16/23 06:59 Home Medications Medication Instructions Recorded Confirmed Last Taken Type aspirin 325 mg tablet 325 mg PO DAILY 03/09/21 10/15/23 Unknown History atorvastatin 10 mg tablet 10 mg PO DAILY 03/09/21 10/15/23 Unknown History lisinopril 40 mg tablet 40 mg PO DAILY 03/09/21 10/15/23 Unknown History sitagliptin phosphate 100 mg 100 mg PO DAILY 03/09/21 10/15/23 Unknown History tablet (Januvia) amlodipine 10 mg tablet 10 mg PO DAILY 10/15/23 10/15/23 Unknown History cholecalciferol (vitamin D3) 25 25 mcg PO DAILY 10/15/23 10/15/23 Unknown History mcg (1,000 unit) tablet cyanocobalamin (vitamin B-12) 1,000 mcg PO DAILY 10/15/23 10/15/23 Unknown History 1,000 mcg capsule ezetimibe 10 mg tablet 10 mg PO DAILY 10/15/23 10/15/23 Unknown History furosemide 40 mg tablet 40 mg PO DAILY 10/15/23 10/15/23 Unknown History metformin 500 mg tablet,extended 1,000 mg PO BID 10/15/23 10/15/23 Unknown History release 24 hr Physical Exam 2 Vital Signs and Narrative: Vital Signs: Last Vital Signs Temp 100.6 F H 10/15/23 20:02 Pulse 102 H 10/15/23 19:13 Resp 20 10/15/23 19:13 BP 138/69 10/15/23 19:13 Pulse Ox 95 10/15/23 19:13 O2 Del Method Room Air 10/15/23 19:13 BMI result Body Mass Index 33.7 Middle-aged male lying in bed in no distress Neck supple, no JVD Regular rate and rhythm, S1-S2 heard Regular breath sounds bilaterally, no wheezing or crackles appreciated Abdomen soft nontender, no guarding, no rigidity Patient is awake, alert and oriented to self, place, time and person ; lower extremity weakness noted, unable to make a fist - bilateral upper extremity Psych: Normal mood No pedal edema Results Labs 10/15/23 18:45 10/15/23 18:45 Labs: Laboratory Results - last 24 hr 10/15/23 10/15/23 10/15/23 18:45 20:40 20:40 MCV 83.9 MCH 28.7 MCHC 34.2 RDW 13.1 Plt Count 262 MPV 9.3 L Immature Gran % (Auto) 0.5 H Neut % (Auto) 85.9 H Lymph % (Auto) 4.2 L [place] % (Auto) 8.5 Eos % (Auto) 0.3 Baso % (Auto) 0.6 Lymph # (Auto) 0.4 L [place] # (Auto) 0.9 Eos # (Auto) 0.0 Baso # (Auto) 0.1 Abs Immat Gran (auto) 0.05 H Absolute Neuts (auto) 8.8 H Absolute Nucleated RBC 0.000 Nucleated RBC % (auto) 0.0 PT 13.9 H INR 1.1 Anion Gap 16 Estim Creat Clear Calc 43.5 Estimated GFR 37 Random Glucose 157 H Lactic Acid 1.7 Calcium 9.7 Magnesium 1.6 Total Bilirubin 0.6 Direct Bilirubin 0.3 AST 29 ALT 20 Alkaline Phosphatase 63 Troponin I High Sens 6.8 Total Protein 7.7 Albumin 4.5 Vitamin B12 1182 H Folate 11.5 TSH 1.32 CSF Tube Number 2 4 CSF Volume 4.5 CSF Appearance CLEAR CSF Color COLORLESS CSF WBC 1 CSF RBC 0 CSF Lymphocytes 100 CSF Appearance (b) Clear, Colorless CSF Glucose 92 CSF Total Protein 50.9 H Ethyl Alcohol < 10 COVID-19 (KB) Positive A COVID-19 Clin Com See Note Influenza Type A (RAJI) Negative Influenza Type B (RAJI) Negative Influenza A & B Note See Note Imaging Radiologist's Impressions: Impressions Head CT 10/15/23 18:15 IMPRESSION: No acute intracranial pathology. Chest X-Ray 10/15/23 22:00 IMPRESSION: No acute cardiopulmonary findings. Assessment and Plan (1) Lower extremity weakness: Status: Acute (2) COVID-19: Status: Acute Plan This is a 67-year-old male with pertinent history of bzq-canyvqr-unbdpmyzl diabetes mellitus, CAD status post CABG, essential hypertension, mixed hyperlipidemia who presents to the emergency department for evaluation of lower extremity weakness. #. Bilateral lower extremity weakness, acute: Concerning for polyneuropathy. LP was performed in the ER and CSF protein found to be elevated. Remaining CSF studies pending Neurology was consulted and patient was given 1 dose of IVIG. Appreciate Neurology assistance. Vitamin B12 within normal limits #. COVID-19 infection: Fever due to viral infection. No concern for bacterial superinfection, defer antibiotics. No indication for Decadron as patient is not hypoxemic. Continue isolation precautions #. Fgb-qmjfuoh-rpugkpgip diabetes mellitus: Initiating Accu-Cheks with sliding scale insulin #. CAD status post CABG / mixed hyperlipidemia: Continue antiplatelet agent, statin and ezetimibe #. Essential hypertension: Continue home antihypertensives #. Chronic kidney disease: Creatinine at baseline. DVT prophylaxis: Lovenox Full code Admit as inpatient and will require two night minimum hospital stay for evaluation of acute lower extremity weakness (as above), which is not possible in a lesser acute setting. Specialist consult pending Quality Stroke Does the patient have a stroke diagnosis?: No VTE Prior VTE?: No VTE Risk Level:: Medical - moderate - high VTE Device Contraindication: Treatment Not Indicated VTE Drug Contraindication: N/A - Med Ordered
[2023-10-15] MEDS: Immun Glob G(IgG)/Gly/IGA Ov50 200 ML IV (23:00)
[2023-10-15 23:57] VITALS: BP 125/65; PULSE 84; RESP 16; TEMP 36.7; O2SAT 96
--- NOTE | 2023-10-16 00:16 | PC.NURSE ---
late entry - this RN assumed care of the pt at 1900 - pt resting comfortably on stretcher. rectal temp obtained and was 100.6. Pt is covid+. LP done by MD Sommers. CSF samples sent to lab as ordered. Pt diagnosed with [place] likely d/t virus. Pt to be admitted to hospital for further management. #18g iv in LAC. IvIg fluids running through line as ordered. 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 urinal provided to patient. Offers no current complaints, needs met, call lópez within reach, plan of care ongoing.
[2023-10-16] MEDS: 0.9 % Sodium Chloride 1,000 ML 999 ML IV (00:55)
[2023-10-16] MEDS: Immun Glob G(IgG)/Gly/IGA Ov50 200 ML IV (03:04)
[2023-10-16 06:28] VITALS: BP 125/66; PULSE 87; RESP 20; TEMP 36.9; O2SAT 96
[2023-10-16 06:55] LABS: MANUAL DIFF FLAG NO
[2023-10-16 06:57] LABS: Basophils Percent Auto 0.4 % (0-2); Eosinophils Percent Auto 0.6 % (0-4); Hematocrit 40.7 % (42.0-52.0); Hemoglobin 13.9 g/dl (14.0-18.0); Imm Gran Abs Auto 0.02 X10*3/uL (0.00-0.03); Imm Gran Pct Auto 0.4 % (0.0-0.4); Lymphocytes Absolute Auto 0.3 X10*3/uL (1.2-4.9); Mean Corpuscular HGB Conc 34.2 g/dl (31.0-36.0); Mean Corpuscular Hemoglobin 28.8 pg (27.0-33.0); Mean Corpuscular Volume 84.3 fL (80.0-98.0); Mean Platelet Volume 9.2 fL (9.4-12.4); Monocytes Absolute Auto 0.3 X10*3/uL (0.1-1.2); Monocytes Percent Auto 5.1 % (2-11); Neutrophils Absolute Auto 4.2 x10*3/uL (2.0-8.3); Neutrophils Percent Auto 86.5 % (45-73); Platelet Count 236 X10*3/uL (160-400); Red Blood Count 4.83 X10*6/uL (4.60-5.80); Red Cell Distribution Width 13.1 % (11.0-16.0); White Blood Count 4.9 X10*3/uL (4.8-10.8)
[2023-10-16 07:12] LABS: Anion Gap 13 (12-20); Blood Urea Nitrogen 19 mg/dL (9-16); Calcium 9.2 mg/dL (8.4-10.2); Carbon Dioxide 25 mmol/L (22-29); Chloride 103 mmol/L (96-108); Estimated Glomerular Filt Rate 39; Glucose Random 188 mg/dL (60-115); Potassium 4.2 mmol/L (3.3-5.1); Sodium 137 mmol/L (135-145)
[2023-10-16 07:22] LABS: Cryptococcus neoformans/gattii Not Detected (Not Detect.); Enterovirus Not Detected (Not Detect.); Escherichia coli K1 Not Detected (Not Detect.); Haemophilus influenzae Not Detected (Not Detect.); Herpes simplex virus 1 Not Detected (Not Detect.); Herpes simplex virus 2 Not Detected (Not Detect.); Human herpesvirus 6 Not Detected (Not Detect.); Human parechovirus Not Detected (Not Detect.); Listeria monocytogenes Not Detected (Not Detect.); Neisseria meningitidis Not Detected (Not Detect.); Streptococcus agalactiae Not Detected (Not Detect.); Streptococcus pneumoniae Not Detected (Not Detect.); Varicella zoster virus Not Detected (Not Detect.)
[2023-10-16 07:47] VITALS: BP 140/79; PULSE 97; RESP 18; TEMP 37; O2SAT 98
[2023-10-16] MEDS: Insulin Lispro 100 UNIT/ML 3 ML VIAL SUBCUT (07:49)
[2023-10-16] MEDS: Furosemide 40 MG TABLET PO (07:49)
[2023-10-16] MEDS: Cholecalciferol (Vitamin D3) 25 MCG TABLET PO (07:49)
[2023-10-16] MEDS: Ezetimibe 10 MG TABLET PO (07:49)
[2023-10-16] MEDS: 0.9 % Sodium Chloride Flush 3 ML SYRINGE IVFLUSH ×3 (07:50→22:21)
[2023-10-16] MEDS: Aspirin 325 MG TABLET PO (07:50)
[2023-10-16] MEDS: metFORMIN HCl ER 500 MG TAB.ER.24H 1000 MG PO (07:50)
[2023-10-16] MEDS: amLODIPine Besylate 10 MG TABLET PO (07:50)
[2023-10-16] MEDS: Atorvastatin Calcium 10 MG TABLET PO (07:50)
[2023-10-16] MEDS: lisinopriL 40 MG TABLET PO (07:50)
[2023-10-16 07:56] LABS: Glucose, Whole Blood 179 mg/dL (60-115)
--- NOTE | 2023-10-16 08:08 | PC.NURSE ---
Resumed care of patient, he is currenly a/ox4, able to move legs around and stand at edge of bed, pt reporting he is feeling much better today. IVIG disconnected, morning medications taken with no issues, pt ate all his breakfast at this time. All needs met, call lópez within reach, covid precautions maintained.
--- NOTE | 2023-10-16 09:39 | PM.NEUROCN ---
History of Present Illness Data of Consult Service Date: 10/16/23 Primary Care Provider: Giovanni Bryant MD [facility] Reason for consult: Falling with bilateral lower extremity weakness This is a 67-year-old male with history of sar-cvwcloq-izhypdown diabetes mellitus, CAD status post CABG, essential hypertension, mixed hyperlipidemia who presents to the emergency department for evaluation of lower extremity weakness. Patient states that he has had weakness of the lower extremities over the last 2 days, with inability to get up from bed and 1 fall yesterday. 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 He said his legs were like rubber. He denies loss of consciousness, or Sz. or tongue bite. He has had minor intermittent tingling and numbness of lower extremities that has been ongoing for the last few years. He reports no weakness of upper extremities. He is positive for Covid 19. No diarrhea, fever or chills. No sick contacts. No chest discomfort, palpitations, abdominal pain, changes in urinary habits. Does have history of previous cervical spinal fractures and questionable history of TIAs but at baseline patient is independent with activities of daily living. Patient denies any difficulty breathing or dysphagia. CSF protein was borderline elevated at 50.9. 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 Review of Systems Review of Systems: Constitutional : No Weight loss, No Fever, No Chills, No Night Sweats, No Fatigue, No Malaise ENT/Mouth : No Hearing loss, No Ear Pain, No Nasal Congestion, No Sinus Pain, No Hoarseness, No sore throat, No Rhinorrhea, No Swallowing Difficulty Eyes: No Eye Pain, No Swelling, No Redness, No Foreign Body, No Discharge, No Vision Changes Cardiovascular : No Chest Pain, No SOB, No Dyspnea on Exertion, No Orthopnea, No Edema, No Palpitations Respiratory : No Cough, No Sputum, No Wheezing, No Smoke Exposure, No Dyspnea Gastrointestinal : No Nausea, No Vomiting, No Diarrhea, No Constipation, No abdominal Pain, No Hematochezia, No Melena Genitourinary : no irregular bleeding, No Dysuria, No Urinary Frequency, No Hematuria, No Urinary Incontinence, No Urgency, No Flank Pain, No Urinary Flow Changes, No Hesitancy Musculoskeletal : No joint pain, No Myalgias, No Joint Swelling Skin : No Skin Lesions, No rash Neuro : Multiple falls, numbness tingling in feet, significant weakness in both upper and lower extremities bilaterally Psych : No Anxiety/Panic, No Depression, No SI/HI/AH/VH, No Social Issues, Heme/Lymph: No Bruising, No Bleeding,No Lymphadenopathy Endocrine : No Polyuria, No Polydipsia, No Temperature Intolerance Constitutional: Constitutional: Reports no additional constitutional complaints, Reports frequent falls and Reports weakness Cardiovascular: Cardiovascular: Reports no additional cardiovascular complaints Respiratory: Respiratory: Reports no additional respiratory complaints Gastrointestinal: Gastrointestinal: Reports no additional gastrointestinal complaints Genitourinary: Genitourinary: Reports no additional male genitourinary complaints Musculoskeletal: Musculoskeletal: Reports tingling Neurologic: Reports frequent falls, Reports tingling, Reports paresthesias and Reports weakness PMFSH Past Medical History Medical History Hyperlipidemia History of TIAs Hypertension Bilateral carotid artery stenosis Diabetic acidosis, type II Family History Family History Daughter No problems noted. Son No problems noted. Father No problems noted. Mother No problems noted. Sister No problems noted. Surgical History Surgical History H/O heart bypass surgery Social History Social History Patient Tobacco Use Status: Former Tobacco user Tobacco use type: Cigarette Smoked in Last 30 Days: No Use of substances other than those prescribed or required for medical reasons: No Advance Directives: No Advance Directives Information Provided: No Nutrition Risks: No Nutritional Risk Meds Allergies Allergy/AdvReac Type Severity Reaction Status Date / Time No Known Allergies Allergy Verified 12/13/22 14:07 Active Medications: Current Medications Acetaminophen (Acetaminophen 325 Mg Tablet) 650 mg PO Q6H PRN PRN Reason: Pain, Mild (Pain Scale 1-3) Amlodipine Besylate (Amlodipine Besylate 10 Mg Tablet) 10 mg PO DAILY [facility]; Protocol Last Admin: 10/16/23 07:50 Dose: 10 mg Aspirin (Aspirin 325 Mg Tablet) 325 mg PO DAILY [facility] Last Admin: 10/16/23 07:50 Dose: 325 mg Atorvastatin Calcium (Atorvastatin Calcium 10 Mg Tablet) 10 mg PO DAILY [facility] Last Admin: 10/16/23 07:50 Dose: 10 mg Dextrose (Dextrose 50 % 25 Gm/50 Ml Syringe) 25 gm IVPUSH Q15M PRN; Protocol PRN Reason: per Hypoglycemia Standing Ord. Ezetimibe (Ezetimibe 10 Mg Tablet) 10 mg PO DAILY [facility] Last Admin: 10/16/23 07:49 Dose: 10 mg Enoxaparin Sodium (Enoxaparin Sodium 40 Mg/0.4 Ml Syringe) 40 mg SUBCUT Q24H [facility] Furosemide (Furosemide 40 Mg Tablet) 40 mg PO DAILY [facility]; Protocol Last Admin: 10/16/23 07:49 Dose: 40 mg Glucose (Glucose Gel 15 Gm Gel..Gram.) 15 gm PO Q15M PRN; Protocol PRN Reason: per Hypoglycemia Standing Ord. Insulin Human Lispro (Insulin Lispro 100 Unit/Ml 3 Ml Vial) 0 unit SUBCUT QIDACHS [facility]; Protocol Last Admin: 10/16/23 07:49 Dose: 2 unit Lisinopril (Lisinopril 40 Mg Tablet) 40 mg PO DAILY [facility]; Protocol Last Admin: 10/16/23 07:50 Dose: 40 mg Melatonin (Melatonin 3 Mg Tablet) 6 mg PO BEDTIME PRN PRN Reason: Insomnia Metformin HCl (Metformin Hcl Er 500 Mg Tab.Er.24h) 1,000 mg PO BIDWM [facility] Last Admin: 10/16/23 07:50 Dose: 1,000 mg Ondansetron HCl (Ondansetron Hcl 4 Mg/2 Ml Vial) 4 mg IVPUSH Q8H PRN PRN Reason: Nausea and Vomiting Sitagliptin Phosphate (Sitagliptin Phosphate 100 Mg Tablet) 100 mg PO DAILY [facility] Sodium Chloride (0.9 % Sodium Chloride Flush 3 Ml Syringe) 3 ml IVFLUSH QSHIFT [facility] Last Admin: 10/16/23 07:50 Dose: 3 ml Vitamin D (Cholecalciferol (Vitamin D3) 25 Mcg Tablet) 25 mcg PO DAILY [facility] Last Admin: 10/16/23 07:49 Dose: 25 mcg Home Medications Medication Instructions Recorded Confirmed Last Taken Type aspirin 325 mg tablet 325 mg PO DAILY 03/09/21 10/15/23 Unknown History atorvastatin 10 mg tablet 10 mg PO DAILY 03/09/21 10/15/23 Unknown History lisinopril 40 mg tablet 40 mg PO DAILY 03/09/21 10/15/23 Unknown History sitagliptin phosphate 100 mg 100 mg PO DAILY 03/09/21 10/15/23 Unknown History tablet (Januvia) amlodipine 10 mg tablet 10 mg PO DAILY 10/15/23 10/15/23 Unknown History cholecalciferol (vitamin D3) 25 25 mcg PO DAILY 10/15/23 10/15/23 Unknown History mcg (1,000 unit) tablet cyanocobalamin (vitamin B-12) 1,000 mcg PO DAILY 10/15/23 10/15/23 Unknown History 1,000 mcg capsule ezetimibe 10 mg tablet 10 mg PO DAILY 10/15/23 10/15/23 Unknown History furosemide 40 mg tablet 40 mg PO DAILY 10/15/23 10/15/23 Unknown History metformin 500 mg tablet,extended 1,000 mg PO BID 10/15/23 10/15/23 Unknown History release 24 hr Physical Exam Vital Signs: Vital Signs: Last Vital Signs Temp 98.6 F 10/16/23 07:47 Pulse 97 10/16/23 07:47 Resp 18 10/16/23 07:47 BP 140/79 H 10/16/23 07:47 Pulse Ox 98 10/16/23 07:47 O2 Del Method Room Air 10/16/23 07:47 BMI result Body Mass Index 33.7 Const: Other: Appearance: Alert. Oriented X3. No acute distress. Eyes: Pupils equal, round and reactive to light. ENT: Pharynx normal. Neck: Normal inspection. Neck supple. No lymph nodes noted. No crepitus CVS: Normal heart rate and rhythm. Pulses normal. Normal S1 and S2 Respiratory: No respiratory distress. Breath sounds normal. No Wheezing. No rales . No respiratory distress, no difficulty breathing, normal breathing. Abdomen: Soft and nontender. No rigidity. No distention. Skin: Skin warm and dry. Normal skin color. Normal skin turgor. Extremities: No lower extremity edema. No Lacerations. No Rash Neuro: Oriented X 3. Patient's cranial nerves 2-12 of grossly intact, normal speech. Patient has significant decrease bilateral upper extremities, 1/5 . 2/5 in bilateral lower extremities. Patellar reflexes are bilaterally absent. Patient was asked to try to put himself back in bed. Patient was able to lift his legs bilaterally only assisted due to weakness. Patient needed assistance. Patient was not able to stand up all the way. Psych: calm, cooperative, normal affect Neuro: Other: Is alert and oriented with normal intellectual functions. Cranial nerves II through XII are normal. Muscle tone and strength normal in all 4 extremities. He is able to walk on his toes and heels. He's able to get up from a squatting position. There is no weakness. Reflexes are 1-2+ including knee jerks but absent at the ankles. Plantar response are flexor. No sensory deficits. Results Labs 10/16/23 06:46 10/16/23 06:46 Labs: Short CBC 10/15/23 10/16/23 Range/Units 18:45 06:46 WBC 10.2 4.9 (4.8-10.8) X10*3/uL Hgb 13.9 L 13.9 L (14.0-18.0) g/dl Hct 40.7 L 40.7 L (42.0-52.0) % Plt Count 262 236 (160-400) X10*3/uL BMP 10/15/23 10/16/23 18:45 06:46 Sodium 139 137 Potassium 3.5 4.2 Chloride 100 103 Carbon Dioxide 27 25 BUN 18 H 19 H Creatinine 1.84 H 1.74 H Calcium 9.7 9.2 Liver Function 10/15/23 Range/Units 18:45 Total Bilirubin 0.6 (0.0-1.0) mg/dL Direct Bilirubin 0.3 (0.0-0.5) mg/dL AST 29 (5-37) U/L ALT 20 (0-40) U/L Alkaline Phosphatase 63 (39-117) U/L Albumin 4.5 (3.5-5.0) g/dL Microbiology Microbiology Results: Microbiology 10/15/23 20:40 Cerebrospinal Fluid Gram Stain - Final 10/15/23 20:40 Cerebrospinal Fluid CSF Examination - Final 10/15/23 20:40 Cerebrospinal Fluid Fluid Description - Final Assessment and Plan (1) Lower extremity weakness: Status: Acute I suspect his leg weakness ,which was transient, was related to his Covid. There is no evidence of Guillain-Fox? syndrome and his strength is back to normal. Due to the transient nature of the weakness for a day or so, it would be appropriate to do an MRI of the brain just to make sure that he did not have a bifrontal lobe infarct affecting his legs. I would stop the IVIG. Keep in the keep him in observation for 24-48 hours. (2) COVID-19: Status: Acute Plan This is a 67-year-old male with pertinent history of ryg-lffaitf-plmquplcu diabetes mellitus, CAD status post CABG, essential hypertension, mixed hyperlipidemia who presents to the emergency department for evaluation of lower extremity weakness. #. Bilateral lower extremity weakness, acute: Concerning for polyneuropathy. LP was performed in the ER and CSF protein found to be elevated. Remaining CSF studies pending Neurology was consulted and patient was given 1 dose of IVIG. Appreciate Neurology assistance. Vitamin B12 within normal limits #. COVID-19 infection: Fever due to viral infection. No concern for bacterial superinfection, defer antibiotics. No indication for Decadron as patient is not hypoxemic. Continue isolation precautions #. Fzq-xxkkpuh-sphgsdfer diabetes mellitus: Initiating Accu-Cheks with sliding scale insulin #. CAD status post CABG / mixed hyperlipidemia: Continue antiplatelet agent, statin and ezetimibe #. Essential hypertension: Continue home antihypertensives #. Chronic kidney disease: Creatinine at baseline. DVT prophylaxis: Lovenox Full code Admit as inpatient and will require two night minimum hospital stay for evaluation of acute lower extremity weakness (as above), which is not possible in a lesser acute setting. Specialist consult pending Procedures Date of Service Date of Service: 10/16/23
--- NOTE | 2023-10-16 11:59 | P.PNIM_ITS ---
Subjective Subjective Date of Service: 10/16/23 Interval History: le weakness resolved Physical Exam 2 Vital Signs: Vital Signs: Last Vital Signs Temp 98.6 F 10/16/23 07:47 Pulse 97 10/16/23 07:47 Resp 18 10/16/23 07:47 BP 140/79 H 10/16/23 07:47 Pulse Ox 98 10/16/23 07:47 O2 Del Method Room Air 10/16/23 07:47 BMI result Body Mass Index 33.7 General: AO X 3, no acute distress Resp: CTA bilateral, no accessory muscles used CVS: S1,S2,RRR GI: soft, non tender, non distended Neuro: motor grossly intact, alert Psych: appropriate affect, appropriate insight Objective Data Active Medications Acetaminophen (Acetaminophen 325 Mg Tablet) 650 mg PO Q6H PRN PRN Reason: Pain, Mild (Pain Scale 1-3) Amlodipine Besylate (Amlodipine Besylate 10 Mg Tablet) 10 mg PO DAILY [facility]; Protocol Last Admin: 10/16/23 07:50 Dose: 10 mg Documented By: REGGIE Aspirin (Aspirin 325 Mg Tablet) 325 mg PO DAILY [facility] Last Admin: 10/16/23 07:50 Dose: 325 mg Documented By: REGGIE Atorvastatin Calcium (Atorvastatin Calcium 10 Mg Tablet) 10 mg PO DAILY [facility] Last Admin: 10/16/23 07:50 Dose: 10 mg Documented By: REGGIE Dextrose (Dextrose 50 % 25 Gm/50 Ml Syringe) 25 gm IVPUSH Q15M PRN; Protocol PRN Reason: per Hypoglycemia Standing Ord. Ezetimibe (Ezetimibe 10 Mg Tablet) 10 mg PO DAILY [facility] Last Admin: 10/16/23 07:49 Dose: 10 mg Documented By: REGGIE Enoxaparin Sodium (Enoxaparin Sodium 40 Mg/0.4 Ml Syringe) 40 mg SUBCUT Q24H BELEM Furosemide (Furosemide 40 Mg Tablet) 40 mg PO DAILY [facility]; Protocol Last Admin: 10/16/23 07:49 Dose: 40 mg Documented By: REGGIE Glucose (Glucose Gel 15 Gm Gel..Gram.) 15 gm PO Q15M PRN; Protocol PRN Reason: per Hypoglycemia Standing Ord. Insulin Human Lispro (Insulin Lispro 100 Unit/Ml 3 Ml Vial) 0 unit SUBCUT QIDACHS [facility]; Protocol Last Admin: 10/16/23 07:49 Dose: 2 unit Documented By: REGGIE Lisinopril (Lisinopril 40 Mg Tablet) 40 mg PO DAILY [facility]; Protocol Last Admin: 10/16/23 07:50 Dose: 40 mg Documented By: REGGIE Melatonin (Melatonin 3 Mg Tablet) 6 mg PO BEDTIME PRN PRN Reason: Insomnia Metformin HCl (Metformin Hcl Er 500 Mg Tab.Er.24h) 1,000 mg PO BIDWM [facility] Last Admin: 10/16/23 07:50 Dose: 1,000 mg Documented By: REGGIE Ondansetron HCl (Ondansetron Hcl 4 Mg/2 Ml Vial) 4 mg IVPUSH Q8H PRN PRN Reason: Nausea and Vomiting Sitagliptin Phosphate (Sitagliptin Phosphate 100 Mg Tablet) 100 mg PO DAILY [facility] Sodium Chloride (0.9 % Sodium Chloride Flush 3 Ml Syringe) 3 ml IVFLUSH QSHIFT [facility] Last Admin: 10/16/23 07:50 Dose: 3 ml Documented By: REGGIE Vitamin D (Cholecalciferol (Vitamin D3) 25 Mcg Tablet) 25 mcg PO DAILY [facility] Last Admin: 10/16/23 07:49 Dose: 25 mcg Documented By: REGGIE Labs 10/16/23 06:46 10/16/23 06:46 Labs: Laboratory Results - last 24 hr 10/15/23 10/15/23 10/15/23 18:45 20:40 20:40 MCV 83.9 MCH 28.7 MCHC 34.2 RDW 13.1 Plt Count 262 MPV 9.3 L Immature Gran % (Auto) 0.5 H Neut % (Auto) 85.9 H Lymph % (Auto) 4.2 L [place] % (Auto) 8.5 Eos % (Auto) 0.3 Baso % (Auto) 0.6 Lymph # (Auto) 0.4 L [place] # (Auto) 0.9 Eos # (Auto) 0.0 Baso # (Auto) 0.1 Abs Immat Gran (auto) 0.05 H Absolute Neuts (auto) 8.8 H Absolute Nucleated RBC 0.000 Nucleated RBC % (auto) 0.0 PT 13.9 H INR 1.1 Anion Gap 16 Estim Creat Clear Calc 43.5 Estimated GFR 37 POC Glucose Random Glucose 157 H Lactic Acid 1.7 Calcium 9.7 Magnesium 1.6 Total Bilirubin 0.6 Direct Bilirubin 0.3 AST 29 ALT 20 Alkaline Phosphatase 63 Troponin I High Sens 6.8 Total Protein 7.7 Albumin 4.5 Vitamin B12 1182 H Folate 11.5 TSH 1.32 CSF Tube Number 2 4 CSF Volume 4.5 CSF Appearance CLEAR CSF Color COLORLESS CSF WBC 1 CSF RBC 0 CSF Lymphocytes 100 CSF Appearance (b) Clear, Colorless CSF Glucose 92 CSF Total Protein 50.9 H CSF C.neoform/gat PCR Not Detected CSF CMV DNA (PCR) Not Detected CSF Enterovirus (PCR) Not Detected CSF E. coli K1 (PCR) Not Detected CSF H. influenzae (PCR) Not Detected CSF HSV I (PCR) Not Detected CSF HSV II (PCR) Not Detected CSF HHV 6 (PCR) Not Detected CSF L.monocytogenes PCR Not Detected CSF N. meningitidis PCR Not Detected CSF Parechovirus (PCR) Not Detected CSF S. agalactiae (PCR) Not Detected CSF S. pneumoniae (PCR) Not Detected CSF VZV (PCR) Not Detected Ethyl Alcohol < 10 COVID-19 (KB) Positive A COVID-19 Clin Com See Note Influenza Type A (RAJI) Negative Influenza Type B (RAJI) Negative Influenza A & B Note See Note 10/16/23 10/16/23 06:46 07:38 MCV 84.3 MCH 28.8 MCHC 34.2 RDW 13.1 Plt Count 236 MPV 9.2 L Immature Gran % (Auto) 0.4 Neut % (Auto) 86.5 H Lymph % (Auto) 7.0 L [place] % (Auto) 5.1 Eos % (Auto) 0.6 Baso % (Auto) 0.4 Lymph # (Auto) 0.3 L [place] # (Auto) 0.3 Eos # (Auto) 0.0 Baso # (Auto) 0.0 Abs Immat Gran (auto) 0.02 Absolute Neuts (auto) 4.2 Absolute Nucleated RBC 0.000 Nucleated RBC % (auto) 0.0 PT INR Anion Gap 13 Estim Creat Clear Calc 46.0 Estimated GFR 39 POC Glucose 179 H Random Glucose 188 H Lactic Acid Calcium 9.2 Magnesium Total Bilirubin Direct Bilirubin AST ALT Alkaline Phosphatase Troponin I High Sens Total Protein Albumin Vitamin B12 Folate TSH CSF Tube Number CSF Volume CSF Appearance CSF Color CSF WBC CSF RBC CSF Lymphocytes CSF Appearance (b) CSF Glucose CSF Total Protein CSF C.neoform/gat PCR CSF CMV DNA (PCR) CSF Enterovirus (PCR) CSF E. coli K1 (PCR) CSF H. influenzae (PCR) CSF HSV I (PCR) CSF HSV II (PCR) CSF HHV 6 (PCR) CSF L.monocytogenes PCR CSF N. meningitidis PCR CSF Parechovirus (PCR) CSF S. agalactiae (PCR) CSF S. pneumoniae (PCR) CSF VZV (PCR) Ethyl Alcohol COVID-19 (KB) COVID-19 Clin Com Influenza Type A (RAJI) Influenza Type B (RAJI) Influenza A & B Note Microbiology Microbiology Results: Microbiology 10/15/23 20:40 Gram Stain - Final Cerebrospinal Fluid CSF Examination - Final Fluid Description - Final CSF Culture - Preliminary No growth to date. Assessment and Plan (1) COVID-19: Status: Acute Plan 67M PMH dm, cad, htn ,hld, presented with weakness, positive for covid bilateral lower extremity weakness in patient with covid weakness resolved, no evidence of guillane barre at this time, holding of on ivig neuro appreciated, check mri and continue to monitor DM insulin covid sympotmatic maanagment cad, pvd asa, statin htn lisinopirl, amlodipine ckd 3 stable dvt prophylaxis - lovenox full code reason for continued hospitalization: awaiting mri, monitoring for worsening symptoms Quality Stroke Does the patient have a stroke diagnosis?: No VTE Prior VTE?: No VTE Risk Level:: Medical - moderate - high VTE Device Contraindication: Treatment Not Indicated VTE Drug Contraindication: N/A - Med Ordered
--- NOTE | 2023-10-16 12:20 | PC.NURSE ---
MRI screening sheet filled out with patient and faxed to MRI.
[2023-10-16] MEDS: SITagliptin Phosphate 100 MG TABLET PO (13:18)
[2023-10-16 13:25] LABS: Glucose, Whole Blood 132 mg/dL (60-115)
[2023-10-16 15:53] VITALS: BP 112/61; PULSE 99; RESP 20; TEMP 36.7; O2SAT 97
--- NOTE | 2023-10-16 15:54 | MHC.EDTECH ---
THIS PCT ASSUMED CARE OF PATIENT AT 1500 ,VITALS TAKEN ,PATIENT COMFORTABLE AND IS SITTING UP IN BED ,CALL BALDWIN WITHIN PATIENT REACH .
[2023-10-16 19:12] LABS: Glucose, Whole Blood 143 mg/dL (60-115)
[2023-10-16] MEDS: metFORMIN HCl 500 MG TABLET PO (19:23)
[2023-10-16 19:25] VITALS: PULSE 94; RESP 20; O2SAT 97
[2023-10-16 20:00] VITALS: BP 120/59; PULSE 89; RESP 16; TEMP 36.7; O2SAT 97
--- NOTE | 2023-10-16 20:53 | PC.NURSE ---
pt in MRI
[2023-10-16 21:45] VITALS: BMI 33.5
[2023-10-16] MEDS: Enoxaparin Sodium 40 MG/0.4 ML SYRINGE SUBCUT (22:21)
[2023-10-16 22:32] VITALS: BP 136/60; PULSE 100; RESP 18; TEMP 37.2; O2SAT 98
[2023-10-16 22:43] LABS: Glucose, Whole Blood 123 mg/dL (60-115)
[2023-10-17 03:06] VITALS: BP 151/77; PULSE 101; RESP 18; TEMP 36.6; O2SAT 97
[2023-10-17 03:37] LABS: Appearance Urine Clear; Color Urine Yellow; Glucose Urine UA 100 mg/dL (Negative); Leukocyte Esterase Urine Negative (Negative); Nitrite Urine Negative (Negative); PH 5.5 (5.0-9.0); Specific Gravity - Urine 1.015 (1.005-1.025); UMIC TRIGGER UACC YES; Urine Blood Trace (Negative); Urine Ketones Trace mg/dL (Negative); Urine Protein Trace mg/dL (Neg-Trace)
[2023-10-17 03:46] LABS: Bacteria Urine None Seen (None Seen); RBC Urine 0-2 /HPF (0-2); Squamous Epithelial Cell Urine 0-2 /HPF (0-2); WBC Urine 0-5 /HPF (0-5)
[2023-10-17 04:13] LABS: Amphetamine Screen Urine Not Detected (Not Detect); Barbiturates, Urine Not Detected (Not Detect); Benzodiazepines Screen Urine Not Detected (Not Detect); Cannabinoid Screen Urine Not Detected (Not Detect); Cocaine Screen Urine Not Detected (Not Detect); Fentanyl, urine Not Detected (Not Detect); Opiate Screen Urine Not Detected (Not Detect); Phencyclidine Screen Urine Not Detected (Not Detect)
[2023-10-17 06:23] LABS: Hemoglobin 14.8 g/dl (14.0-18.0); Mean Corpuscular HGB Conc 33.6 g/dl (31.0-36.0); Mean Corpuscular Hemoglobin 28.9 pg (27.0-33.0); Mean Corpuscular Volume 85.9 fL (80.0-98.0); Mean Platelet Volume 9.7 fL (9.4-12.4); Platelet Count 268 X10*3/uL (160-400); Red Blood Count 5.12 X10*6/uL (4.60-5.80); Red Cell Distribution Width 13.4 % (11.0-16.0); White Blood Count 9.9 X10*3/uL (4.8-10.8)
[2023-10-17 06:33] LABS: Anion Gap 17 (12-20); Blood Urea Nitrogen 35 mg/dL (9-16); Calcium 9.6 mg/dL (8.4-10.2); Carbon Dioxide 24 mmol/L (22-29); Chloride 100 mmol/L (96-108); Creatinine Clr Calc Pharmacy 29.9; Estimated Glomerular Filt Rate 24; Glucose Fasting 106 mg/dL (60-99); Potassium 3.7 mmol/L (3.3-5.1); Sodium 137 mmol/L (135-145)
[2023-10-17 06:58] LABS: Glucose, Whole Blood 117 mg/dL (60-115)
[2023-10-17 07:14] VITALS: BP 120/62; PULSE 98; RESP 18; TEMP 36.3; O2SAT 98
[2023-10-17] MEDS: metFORMIN HCl 500 MG TABLET PO (07:55)
[2023-10-17] MEDS: SITagliptin Phosphate 100 MG TABLET PO (07:55)
[2023-10-17] MEDS: Atorvastatin Calcium 10 MG TABLET PO (07:55)
[2023-10-17] MEDS: Aspirin 325 MG TABLET PO (07:55)
[2023-10-17] MEDS: amLODIPine Besylate 10 MG TABLET PO (07:55)
[2023-10-17] MEDS: Cholecalciferol (Vitamin D3) 25 MCG TABLET PO (07:55)
[2023-10-17] MEDS: Ezetimibe 10 MG TABLET PO (07:56)
[2023-10-17] MEDS: Furosemide 40 MG TABLET PO (07:56)
[2023-10-17] MEDS: 0.9 % Sodium Chloride Flush 3 ML SYRINGE IVFLUSH (07:56)
--- NOTE | 2023-10-17 09:29 | HO.PM.IMPN ---
Subjective Subjective Date of Service: 10/17/23 Interval History: le weakness resolved Physical Exam Vital Signs: Vital Signs: Last Vital Signs Temp 97.4 F 10/17/23 07:14 Pulse 98 10/17/23 07:14 Resp 18 10/17/23 07:14 BP 120/62 10/17/23 07:14 Pulse Ox 98 10/17/23 07:14 O2 Del Method Room Air 10/17/23 07:14 BMI result Body Mass Index 33.5 General: AO X 3, no acute distress Resp: CTA bilateral, no accessory muscles used CVS: S1,S2,RRR GI: soft, non tender, non distended Neuro: motor grossly intact, alert Psych: appropriate affect, appropriate insight Objective Data Active Medications Acetaminophen (Acetaminophen 325 Mg Tablet) 650 mg PO Q6H PRN PRN Reason: Pain, Mild (Pain Scale 1-3) Amlodipine Besylate (Amlodipine Besylate 10 Mg Tablet) 10 mg PO DAILY [facility]; Protocol Last Admin: 10/17/23 07:55 Dose: 10 mg Documented By: VINH Aspirin (Aspirin 325 Mg Tablet) 325 mg PO DAILY [facility] Last Admin: 10/17/23 07:55 Dose: 325 mg Documented By: VINH Atorvastatin Calcium (Atorvastatin Calcium 10 Mg Tablet) 10 mg PO DAILY [facility] Last Admin: 10/17/23 07:55 Dose: 10 mg Documented By: VINH Dextrose (Dextrose 50 % 25 Gm/50 Ml Syringe) 25 gm IVPUSH Q15M PRN; Protocol PRN Reason: per Hypoglycemia Standing Ord. Ezetimibe (Ezetimibe 10 Mg Tablet) 10 mg PO DAILY [facility] Last Admin: 10/17/23 07:56 Dose: 10 mg Documented By: VINH Enoxaparin Sodium (Enoxaparin Sodium 40 Mg/0.4 Ml Syringe) 40 mg SUBCUT Q24H [facility] Last Admin: 10/16/23 22:21 Dose: 40 mg Documented By: AMMON Furosemide (Furosemide 40 Mg Tablet) 40 mg PO DAILY [facility]; Protocol Last Admin: 10/17/23 07:56 Dose: 40 mg Documented By: VINH Glucose (Glucose Gel 15 Gm Gel..Gram.) 15 gm PO Q15M PRN; Protocol PRN Reason: per Hypoglycemia Standing Ord. Insulin Human Lispro (Insulin Lispro 100 Unit/Ml 3 Ml Vial) 0 unit SUBCUT QIDACHS [facility]; Protocol Last Admin: 10/17/23 07:45 Dose: Not Given Documented By: VINH Non-Admin Reason: No Insulin Coverage Lisinopril (Lisinopril 40 Mg Tablet) 40 mg PO DAILY [facility]; Protocol Last Admin: 10/16/23 07:50 Dose: 40 mg Documented By: REGGIE Melatonin (Melatonin 3 Mg Tablet) 6 mg PO BEDTIME PRN PRN Reason: Insomnia Metformin HCl (Metformin Hcl 500 Mg Tablet) 500 mg PO BIDWM [facility] Last Admin: 10/17/23 07:55 Dose: 500 mg Documented By: VINH Ondansetron HCl (Ondansetron Hcl 4 Mg/2 Ml Vial) 4 mg IVPUSH Q8H PRN PRN Reason: Nausea and Vomiting Sitagliptin Phosphate (Sitagliptin Phosphate 100 Mg Tablet) 100 mg PO DAILY [facility] Last Admin: 10/17/23 07:55 Dose: 100 mg Documented By: VINH Sodium Chloride (0.9 % Sodium Chloride Flush 3 Ml Syringe) 3 ml IVFLUSH QSHIFT [facility] Last Admin: 10/17/23 07:56 Dose: 3 ml Documented By: VINH Vitamin D (Cholecalciferol (Vitamin D3) 25 Mcg Tablet) 25 mcg PO DAILY [facility] Last Admin: 10/17/23 07:55 Dose: 25 mcg Documented By: VINH Labs 10/17/23 06:02 10/17/23 06:02 Labs: Laboratory Results - last 24 hr 10/16/23 10/16/23 10/16/23 13:16 19:03 22:39 MCV MCH MCHC RDW Plt Count MPV Absolute Nucleated RBC Nucleated RBC % (auto) Anion Gap Estim Creat Clear Calc Estimated GFR POC Glucose 132 H 143 H 123 H Fasting Glucose Calcium Urine Color Urine Appearance Urine pH Ur Specific [place] Urine Protein Urine Glucose (UA) Urine Ketones Urine Blood Urine Nitrite Ur Leukocyte Esterase Urine RBC Urine WBC Ur Squamous Epith Cells Urine Bacteria Hyaline Casts Urine Opiates Screen Urine Fentanyl Screen Ur Barbiturates Screen Ur Phencyclidine Scrn Ur Amphetamines Screen U Benzodiazepines Scrn Urine Cocaine Screen U Marijuana (THC) Screen 10/17/23 10/17/23 10/17/23 03:20 06:02 06:54 MCV 85.9 MCH 28.9 MCHC 33.6 RDW 13.4 Plt Count 268 MPV 9.7 Absolute Nucleated RBC 0.000 Nucleated RBC % (auto) 0.0 Anion Gap 17 Estim Creat Clear Calc 29.9 Estimated GFR 24 POC Glucose 117 H Fasting Glucose 106 H Calcium 9.6 Urine Color Yellow Urine Appearance Clear Urine pH 5.5 Ur Specific [place] 1.015 Urine Protein Trace Urine Glucose (UA) 100 H Urine Ketones Trace Urine Blood Trace H Urine Nitrite Negative Ur Leukocyte Esterase Negative Urine RBC 0-2 Urine WBC 0-5 Ur Squamous Epith Cells 0-2 Urine Bacteria None Seen Hyaline Casts 3-5 Urine Opiates Screen Not Detected Urine Fentanyl Screen Not Detected Ur Barbiturates Screen Not Detected Ur Phencyclidine Scrn Not Detected Ur Amphetamines Screen Not Detected U Benzodiazepines Scrn Not Detected Urine Cocaine Screen Not Detected U Marijuana (THC) Screen Not Detected Microbiology Microbiology Results: Microbiology 10/15/23 18:45 Blood Culture - Preliminary Blood - Venous No growth after 24 hours. 10/15/23 18:39 Blood Culture - Preliminary Blood - Venous No growth after 24 hours. 10/15/23 20:40 Gram Stain - Final Cerebrospinal Fluid CSF Examination - Final Fluid Description - Final CSF Culture - Preliminary No growth to date. Assessment and Plan (1) COVID-19: Status: Acute Plan 67M PMH dm, cad, htn ,hld, presented with weakness, positive for covid bilateral lower extremity weakness in patient with covid weakness resolved, no evidence of guillane barre at this time, holding of on ivig mri negative DM insulin covid symptomatic maanagment cad, pvd asa, statin htn lisinopirl, amlodipine mason on ckd 3 hold lisinopril, lasix monitor dvt prophylaxis - lovenox full code reason for continued hospitalization: mason Quality Stroke Does the patient have a stroke diagnosis?: No VTE Prior VTE?: No VTE Risk Level:: Medical - moderate - high VTE Device Contraindication: Treatment Not Indicated VTE Drug Contraindication: N/A - Med Ordered
--- NOTE | 2023-10-17 09:59 | MHC.CM.PN ---
EMR REVIEWED, PT ADMITTED W/WEAKNESS AND R/O TIA, PT FOUND TO BE COVID19+, CM MET W/PT AND PT'S AL AT BEDSIDE, PT REPORTS HE IS INDEP AT BASELINE, DENIES USE OF DME/SERVICES, PT'S GOAL FOR DC IS LEAVE TODAY HOWEVER CM UNSURE IF HE WILL BE MEDICALLY CLEARED. PT VERIFIES PCP IS DR SANCHEZ, COVID VAXED AND BOOSTED EXCEPT THIS YRS BOOSTER, HCP IS [place] [phone]
[2023-10-17 10:57] LABS: Glucose, Whole Blood 133 mg/dL (60-115)
--- NOTE | 2023-10-17 11:02 | P.DS_ITS ---
DS: Providers Provider Date of Service: 10/17/23 Date of admission: 10/15/23 22:32 Primary care physician: Giovanni Bryant MD Consults: 10/15/23 22:35 Consult to Neurology Routine Consulting Provider: [facility] Reason for consultation: ?GBS DS: Diagnosis Discharge Diagnosis (1) COVID-19: Status: Acute DS: Summary Hospital Course Hospital Course: from initial hpi: 67-year-old male with pertinent history of com-[id number] diabetes mellitus, CAD status post CABG, essential hypertension, mixed hyperlipidemia who presents to the emergency department for evaluation of lower extremity weakness. Patient states that he has had progressive weakness of the lower extremities over the last 1 week. Also reports frequent falls and difficulty ambulation due to lower extremity weakness. He was found on the floor due to difficulty ambulation by his . He denies loss of consciousness, rhythmic jerking movement of extremities, tongue bite. States he has had tingling and numbness of lower extremities that has been ongoing for the last few years. Also reports weakness of upper extremities and difficulty making a fist but unsure if it is chronic. No diarrhea, fever or chills. No sick contacts. No chest discomfort, palpitations, abdominal pain, changes in urinary habits. Does have history of previous cervical spinal fractures and questionable history of TIAs but at baseline patient is independent with activities of daily living. Patient denies any difficulty breathing or dysphagia In the emergency department, lumbar puncture was performed. CSF protein was noted to be mildly elevated and Neurology was consulted who requested IVIG and admission. hospital course: Patient was admitted for bilateral lower extremity weakness inpatient with COVID. There was concern initially for Guillain-[place], however, workup was negative and patient recovered. Was seen by neurology recommended MRI which was unremarkable. Patient was never hypoxic. Course was complicated by acute kidney injury on CKD 3. Recommendations were to continue monitoring, check ultrasound, and hold lisinopril, Lasix. However, patient was not interested in inpatient monitoring and will follow up outpatient with Nephrology and repeat labs. For diabetes was continued on insulin, for coronary disease and peripheral vascular disease was continue aspirin statin. For hypertension lisinopril has been held, was continued on amlodipine. Time Attestation Discharge coordination time: Greater than 30 minutes Quality: Safe Use of Opioids Does Pt have an Active Cancer Diagnosis on the Problem List?: No Quality: Stroke Does the patient have a stroke diagnosis?: No Physical Exam Vital Signs: Vital Signs: Last Vital Signs Temp 97.4 F 10/17/23 07:14 Pulse 98 10/17/23 07:14 Resp 18 10/17/23 07:14 BP 120/62 10/17/23 07:14 Pulse Ox 98 10/17/23 07:14 O2 Del Method Room Air 10/17/23 07:14 BMI result Body Mass Index 33.5 General: AO X 3, no acute distress Resp: CTA bilateral, no accessory muscles used CVS: S1,S2,RRR GI: soft, non tender, non distended Neuro: motor grossly intact, alert Psych: appropriate affect, appropriate insight DS: Data Data Completed and Pending Labs on day of discharge: Laboratory Results - last 24 hr 10/16/23 10/16/23 10/16/23 13:16 19:03 22:39 WBC RBC Hgb Hct MCV MCH MCHC RDW Plt Count MPV Absolute Nucleated RBC Nucleated RBC % (auto) Sodium Potassium Chloride Carbon Dioxide Anion Gap BUN Creatinine Estim Creat Clear Calc Estimated GFR POC Glucose 132 H 143 H 123 H Fasting Glucose Calcium Urine Color Urine Appearance Urine pH Ur Specific [place] Urine Protein Urine Glucose (UA) Urine Ketones Urine Blood Urine Nitrite Ur Leukocyte Esterase Urine RBC Urine WBC Ur Squamous Epith Cells Urine Bacteria Hyaline Casts Urine Opiates Screen Urine Fentanyl Screen Ur Barbiturates Screen Ur Phencyclidine Scrn Ur Amphetamines Screen U Benzodiazepines Scrn Urine Cocaine Screen U Marijuana (THC) Screen 10/17/23 10/17/23 10/17/23 03:20 06:02 06:54 WBC 9.9 RBC 5.12 Hgb 14.8 Hct 44.0 MCV 85.9 MCH 28.9 MCHC 33.6 RDW 13.4 Plt Count 268 MPV 9.7 Absolute Nucleated RBC 0.000 Nucleated RBC % (auto) 0.0 Sodium 137 Potassium 3.7 Chloride 100 Carbon Dioxide 24 Anion Gap 17 BUN 35 H Creatinine 2.67 H Estim Creat Clear Calc 29.9 Estimated GFR 24 POC Glucose 117 H Fasting Glucose 106 H Calcium 9.6 Urine Color Yellow Urine Appearance Clear Urine pH 5.5 Ur Specific [place] 1.015 Urine Protein Trace Urine Glucose (UA) 100 H Urine Ketones Trace Urine Blood Trace H Urine Nitrite Negative Ur Leukocyte Esterase Negative Urine RBC 0-2 Urine WBC 0-5 Ur Squamous Epith Cells 0-2 Urine Bacteria None Seen Hyaline Casts 3-5 Urine Opiates Screen Not Detected Urine Fentanyl Screen Not Detected Ur Barbiturates Screen Not Detected Ur Phencyclidine Scrn Not Detected Ur Amphetamines Screen Not Detected U Benzodiazepines Scrn Not Detected Urine Cocaine Screen Not Detected U Marijuana (THC) Screen Not Detected 10/17/23 10:53 WBC RBC Hgb Hct MCV MCH MCHC RDW Plt Count MPV Absolute Nucleated RBC Nucleated RBC % (auto) Sodium Potassium Chloride Carbon Dioxide Anion Gap BUN Creatinine Estim Creat Clear Calc Estimated GFR POC Glucose 133 H Fasting Glucose Calcium Urine Color Urine Appearance Urine pH Ur Specific [place] Urine Protein Urine Glucose (UA) Urine Ketones Urine Blood Urine Nitrite Ur Leukocyte Esterase Urine RBC Urine WBC Ur Squamous Epith Cells Urine Bacteria Hyaline Casts Urine Opiates Screen Urine Fentanyl Screen Ur Barbiturates Screen Ur Phencyclidine Scrn Ur Amphetamines Screen U Benzodiazepines Scrn Urine Cocaine Screen U Marijuana (THC) Screen Preliminary micro results at discharge 10/15/23 20:40 CSF Culture - Preliminary Cerebrospinal Fluid Culture in progress. 10/15/23 18:45 Blood Culture - Preliminary Blood - Venous No growth after 24 hours. 10/15/23 18:39 Blood Culture - Preliminary Blood - Venous No growth after 24 hours. Discharge Plan Discharge Anticipated Discharge Date/Time: 10/17/23 11:00 Patient Disposition: Home, Self-Care Discharge Diagnosis: mason, covid Referrals: Giovanni Bryant MD [Primary Care Provider] - 1 Week Discharge Medications: Continued amlodipine 10 mg tablet 10 mg PO DAILY metformin 500 mg tablet extended release 24 hr 1,000 mg PO BID ezetimibe 10 mg tablet 10 mg PO DAILY cholecalciferol (vitamin D3) 25 mcg (1,000 unit) Tablet 25 mcg PO DAILY cyanocobalamin (vitamin B-12) 1,000 mcg Capsule 1,000 mcg PO DAILY aspirin 325 mg tablet 325 mg PO DAILY Januvia 100 mg tablet 100 mg PO DAILY atorvastatin 10 mg tablet 10 mg PO DAILY Held furosemide 40 mg tablet 40 mg PO DAILY Hold Instructions: Resume on 10/21/23. lisinopril 40 mg tablet 40 mg PO DAILY Hold Instructions: Resume on 10/21/23. Discharge Orders: Discharge Order (Routine); Ordered 10/17/23 Ordered By: Anil Alaniz Diet: Advance to usual diet Activity on Discharge: As tolerated Stand Alone Forms: Patient Portal Discharge page Other Ambulatory Orders: Basic Metabolic Panel Fasting (Routine) Timeframe: 1 Week Facility: [facility] - Location: Laboratory Ordered By: Anil Alaniz Care Plan Goals: recovery Health Concerns: covid, mason Plan of Treatment: hold lisinopril, lasix, repeat bmp in a few days, follow up with nephrology Assessment: see above
--- NOTE | 2023-10-17 11:07 | MHC.CM.PN ---
PT MEDICALLY CLEARED FOR DC HOME SELF CARE, PT'S AT BEDSIDE AND WILL TRANSPORT PT HOME.
[2023-10-29 15:24] LABS: Oligoclonal Banding ABSENT
[2023-10-29 15:25] LABS: Total Protein, CSF 55
== END 2023-10-17 11:42 | disposition home or self-care (01) | DRG 48 ==
LOC: HO.ED 22:26 → HO.EDOVER 22:59 → HO.S3 10-16 14:03 → HO.EDOVER 10-16 14:24 → HO.IMC 10-16 20:11
PROVIDERS: Admitting Provider Student in an Organized Health Care Education/Training Program; Emergency Provider Emergency Medicine; PCP Internal Medicine; Visit Provider Internal Medicine
DX: E11.42 Type 2 diabetes mellitus with diabetic polyneuropathy (principal); U07.1 COVID-19; N17.9 Acute kidney failure, unspecified; E11.22 Type 2 diabetes mellitus with diabetic chronic kidney disease; I25.10 Atherosclerotic heart disease of native coronary artery without angina pectoris; Z95.1 Presence of aortocoronary bypass graft; E11.51 Type 2 diabetes mellitus with diabetic peripheral angiopathy without gangrene; N18.30 Chronic kidney disease, stage 3 unspecified; I12.9 Hypertensive chronic kidney disease with stage 1 through stage 4 chronic kidney disease, or unspecified chronic kidney disease; E78.2 Mixed hyperlipidemia; Z87.891 Personal history of nicotine dependence; Z79.84 Long term (current) use of oral hypoglycemic drugs; Z79.82 Long term (current) use of aspirin; Z79.899 Other long term (current) drug therapy
CPT/HCPCS: 36415; 70450; 70551; 71045; 80048; 80076; 80307; 81001; 82607; 82746; 82945; 82947; 83605; 83735; 83916; 84157; 84166; 84443; 84484; 85025; 85027; 85610; 87015; 87040; 87070; 87205; 87483; 87502; 87635; 89051; 93005; 99285; J1200; J1569; J1650; J2920

== ENCOUNTER → 2023-10-15 17:57 | Outpatient (BNV) | payer OTHER, SELFPAY | PROVIDERS: Admitting Provider Student in an Organized Health Care Education/Training Program; Emergency Provider Emergency Medicine; PCP Internal Medicine; Visit Provider Internal Medicine Cardiovascular Disease | DX: R42 Dizziness and giddiness (principal) | CPT/HCPCS: 93010 ==

== ENCOUNTER → 2023-10-15 22:32 | Outpatient (BNV) | payer OTHER, SELFPAY | PROVIDERS: Admitting Provider Student in an Organized Health Care Education/Training Program; Emergency Provider Emergency Medicine; PCP Internal Medicine; Visit Provider Student in an Organized Health Care Education/Training Program | DX: U07.1 COVID-19 (principal); R53.1 Weakness; N18.30 Chronic kidney disease, stage 3 unspecified; E11.9 Type 2 diabetes mellitus without complications | CPT/HCPCS: 99222; 99232; 99238 ==

== ENCOUNTER → 2023-10-15 22:32 | Outpatient (BNV) | payer OTHER, SELFPAY | PROVIDERS: Admitting Provider Student in an Organized Health Care Education/Training Program; Emergency Provider Emergency Medicine; PCP Internal Medicine; Visit Provider Psychiatry & Neurology Neurology | DX: R29.898 Other symptoms and signs involving the musculoskeletal system (principal); U07.1 COVID-19 | CPT/HCPCS: 99223 ==

== ENCOUNTER 2023-10-25 12:07 | Outpatient (REF) | payer OTHER, SELFPAY ==
[2023-10-25 17:17] LABS: Anion Gap 14 (12-20); Blood Urea Nitrogen 16 mg/dL (9-16); Calcium 9.5 mg/dL (8.4-10.2); Carbon Dioxide 26 mmol/L (22-29); Chloride 102 mmol/L (96-108); Estimated Glomerular Filt Rate 55; Glucose Fasting 171 mg/dL (60-99); Potassium 3.9 mmol/L (3.3-5.1); Sodium 138 mmol/L (135-145)
== END 2023-10-25 12:08 | disposition home or self-care (01) ==
LOC: HO.LNP 12:07
PROVIDERS: PCP Internal Medicine; Visit Provider Internal Medicine
DX: N17.9 Acute kidney failure, unspecified (principal)
CPT/HCPCS: 80048

== ENCOUNTER 2023-12-04 13:38 | Outpatient (REF) | payer OTHER, SELFPAY ==
--- NOTE | ~2023-12-04 | US_ITS ---
EXAMINATION: US EXTRACRANIAL CAROTID DUPLEX, BILATERAL CLINICAL INFORMATION: Occlusion and stenosis of bilateral carotid arteries COMPARISON: Carotid duplex 10/29/2022 TECHNIQUE: Real-time ultrasound and Doppler techniques (integrating B-mode 2-D vascular images, Doppler spectral analysis and color-flow Doppler imaging) were utilized to interrogate the extracranial carotid arteries, the vertebral arteries and proximal subclavian arteries bilaterally. The degree of stenosis is determined by criteria similar to NASCET. FINDINGS: Right Side: 1. There is severe atherosclerotic plaque seen in the bifurcation/proximal ICA region. 2. The common carotid artery PSV proximally is 74.5 cm/s and distally 79.2 cm/s. 3. The proximal internal carotid artery velocities are 145 cm/s systolic and 19.6 cm/s diastolic. 4. The proximal external carotid artery PSV is 134 cm/s. 5. The vertebral artery shows antegrade flow. 6. The subclavian artery waveforms are normal. Left Side: 1. There is severe atherosclerotic plaque seen in the bifurcation/proximal ICA region. 2. The common carotid artery PSV proximally is 84.4 cm/s and distally 100 cm/s. 3. The proximal internal carotid artery velocities are 93.2 cm/s systolic and 18.5 cm/s diastolic. 4. The proximal external carotid artery PSV is 113 cm/s. 5. The vertebral artery shows antegrade flow. 6. The subclavian artery waveforms are normal. US/US carotid duplex BI IMPRESSION: 1. RIGHT: Moderate, hemodynamically significant stenosis of the proximal right internal carotid artery corresponding to a 50-79% stenosis by velocity criteria. 2. LEFT: Minimal, non-hemodynamically significant stenosis of the proximal left internal carotid artery corresponding to a 0-49% stenosis by velocity criteria, mildly improved from prior.
== END 2023-12-04 13:39 | disposition home or self-care (01) ==
LOC: HO.HMGCX 13:38
PROVIDERS: PCP Internal Medicine; Visit Provider Surgery Vascular Surgery
DX: I65.23 Occlusion and stenosis of bilateral carotid arteries (principal)
CPT/HCPCS: 93880

== ENCOUNTER 2023-12-24 15:27 | Outpatient (AMB) | payer OTHER, SELFPAY ==
[2023-12-24 15:29] VITALS: BMI 33.4
--- NOTE | 2023-12-24 15:29 | MHC.OFFVIS ---
Vital Signs 12/24/23 15:29 Height 5 ft 8 in Weight 220 lb BMI 33.4 Intake Visit Reasons: 1 yr follow up carotid US 12/04/2023 Intake Note: 1 yr follow up carotid US 12/04/23. Pt states no issues Accompanied by: Self / Same As Patient Allergies No Known Allergies Allergy (Verified 12/24/23 15:33) HPI HPI 1 yr follow up carotid US 12/04/2023: Details: Very pleasant 68-year-old gentleman presents for routine surveillance carotid follow-up. He reports that he is doing fairly well. He has lost a significant amount of weight through diet and exercise. 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 He is being maintained on aspirin and statin. He now presents for routine surveillance follow-up. [facility] Medical History Hyperlipidemia History of TIAs Hypertension Bilateral carotid artery stenosis Diabetic acidosis, type II Surgical History H/O heart bypass surgery Family History Daughter No problems noted. Son No problems noted. Father No problems noted. Mother No problems noted. Sister No problems noted. Social History Household Members: Spouse Housing: House Do you presently have visiting nurse or other home services: No Comment: Pt refuses bed alarm Patient Tobacco Use Status: Former Tobacco user Tobacco use type: Cigarette service: No Review of Systems Const All systems reviewed & are unremarkable except as noted in HPI and below Reports no additional complaints ENT Reports Normal hearing present Card Denies chest pain, Denies chest pain at rest, Denies chest pain with activity and Denies pedal edema Resp Denies cough GI Denies abdominal pain Musc Denies abnormal gait, Denies muscle cramps and Denies radiating pain into limb Skin/Breast Denies skin ulcer and Denies wounds Neuro Reports Normal hearing present and Denies abnormal gait Psych Reports no additional complaints Physical Exam Vital Signs: BMI result Body Mass Index 33.4 Const General: cooperative, healthy appearing and comfortable Orientation/consciousness: oriented to person, oriented to place and oriented to time HEENT Head: Yes normal to inspection Neck Neck: Yes normal visual inspection Carotids: no bruits Chest Chest palpation & inspection: normal inspection of the chest Resp Effort & Inspection: normal respiratory effort and able to speak in complete sentences Auscultation: clear to auscultation bilaterally, no crackles, no rales, no rhonchi and no wheezes Cardio Rate: regular rate Rhythm: regular rhythm Heart sounds: S1 normal heart sound present and S2 normal heart sound present Bruits: no carotid bruits Peripheral pulses: Peripheral pulses 2+ throughout GI Inspection: Yes normal to inspection Skin Wounds: no wounds Hair: normal Neuro General: oriented to person, oriented to place and oriented to time Cranial nerves: Yes CN's II-XII intact bilaterally and Yes Normal hearing present Cognition (Neuro): normal cognition Motor exam (neuro): 5/5 motor strength present throughout Extrem Other: venous exam: No significant superficial varicosities or spider telangiectasias, minimal edema General: No clubbing, No cyanosis and No edema Psych Appearance: grossly normal Mental Status: mental status grossly normal Speech and movement: Normal speech and movement present Results Reviewed Results Reviewed: Carotid testing dated 12/04/2023 demonstrates right-sided 50-79% stenosis with peak systolic of 145 and left-sided 0-49% stenosis written report and images were reviewed. Assessment & Plan Assessment & Plan (1) Bilateral carotid artery stenosis: Code(s): I65.23 - Occlusion and stenosis of bilateral carotid arteries Category: Medical Plan: In short patient has asymptomatic carotid disease. We have reviewed signs and symptoms of a stroke. We also discussed risk factor modification inclusive a healthy diet low in cholesterol. The patient will follow up with us with surveillance ultrasound of the carotids 1 year. Should there be any changes or signs or symptoms of a stroke we will be happy to see them back sooner. Thank you for allowing us to participate in this patient's care. If there are any questions or concerns please do not hesitate to contact us. Orders: Orders US carotid duplex BI 1 Year I65.23 - Occlusion and stenosis of bilateral carotid arteries Coding Level of Care Code Est Pt Level 4 (16345) Diagnoses Bilateral carotid artery stenosis I65.23
== END 2023-12-25 10:34 | disposition home or self-care (01) ==
PROVIDERS: PCP Internal Medicine; Visit Provider Surgery Vascular Surgery
DX: I65.23 Occlusion and stenosis of bilateral carotid arteries (principal)
CPT/HCPCS: 99213

== ENCOUNTER → 2023-12-24 15:27 | Outpatient (BNVA) | payer OTHER, SELFPAY | PROVIDERS: PCP Internal Medicine; Visit Provider Surgery Vascular Surgery ==

== ENCOUNTER 2024-02-11 11:29 | Outpatient (REF) | payer MEDICARE, OTHER, SELFPAY ==
[2024-02-11 11:38] LABS: MANUAL DIFF FLAG NO
[2024-02-11 12:03] LABS: Basophils Absolute Auto 0.1 X10*3/uL (0.0-0.2); Basophils Percent Auto 1.3 % (0-2); Eosinophils Absolute Auto 0.3 X10*3/uL (0.0-0.4); Eosinophils Percent Auto 3.5 % (0-4); Hematocrit 41.2 % (42.0-52.0); Hemoglobin 13.9 g/dl (14.0-18.0); Imm Gran Abs Auto 0.04 X10*3/uL (0.00-0.03); Imm Gran Pct Auto 0.5 % (0.0-0.4); Lymphocytes Absolute Auto 1.9 X10*3/uL (1.2-4.9); Lymphocytes Percent Auto 21.7 % (20-40); Mean Corpuscular HGB Conc 33.7 g/dl (31.0-36.0); Mean Corpuscular Hemoglobin 29.2 pg (27.0-33.0); Mean Corpuscular Volume 86.6 fL (80.0-98.0); Mean Platelet Volume 10.2 fL (9.4-12.4); Monocytes Absolute Auto 0.7 X10*3/uL (0.1-1.2); Monocytes Percent Auto 8.2 % (2-11); Neutrophils Absolute Auto 5.6 x10*3/uL (2.0-8.3); Neutrophils Percent Auto 64.8 % (45-73); Platelet Count 319 X10*3/uL (160-400); Red Blood Count 4.76 X10*6/uL (4.60-5.80); Red Cell Distribution Width 13.2 % (11.0-16.0); White Blood Count 8.6 X10*3/uL (4.8-10.8)
[2024-02-11 12:13] LABS: Estimated Average Glucose 123 mg/dL; Hemoglobin A1C 152.3017 umol/L; Hemoglobin A1c % 5.9 % (<6.0)
[2024-02-11 12:30] LABS: PSA,Total (Free>4and<10) 1.93 ng/mL (0.00-4.00)
[2024-02-11 12:36] LABS: Alanine Aminotransferase 15 U/L (0-40); Albumin Level 4.4 g/dL (3.5-5.0); Alkaline Phosphatase 62 U/L (39-117); Anion Gap 16 (12-20); Aspartate Amino Transferase 21 U/L (5-37); Blood Urea Nitrogen 20 mg/dL (9-16); Calcium 9.5 mg/dL (8.4-10.2); Carbon Dioxide 28 mmol/L (22-29); Chloride 100 mmol/L (96-108); Cholesterol 143 mg/dL (<200); Estimated Glomerular Filt Rate 41; Glucose Fasting 97 mg/dL (60-99); HDL Cholesterol 44 mg/dL (>40); LDL Cholesterol Calculated 82 mg/dL (<100); Potassium 3.7 mmol/L (3.3-5.1); Sodium 140 mmol/L (135-145); Total Protein 7.4 g/dL (6.5-8.0); Triglycerides 85 mg/dL (<150)
== END 2024-02-11 11:30 | disposition home or self-care (01) ==
LOC: HO.LNP 11:29
PROVIDERS: Visit Provider Internal Medicine
DX: Z00.00 Encounter for general adult medical examination without abnormal findings (principal); E11.9 Type 2 diabetes mellitus without complications; I10 Essential (primary) hypertension; E78.6 Lipoprotein deficiency; E78.00 Pure hypercholesterolemia, unspecified; Z12.5 Encounter for screening for malignant neoplasm of prostate
CPT/HCPCS: 80053; 80061; 83036; 84153; 85025

== ENCOUNTER 2024-02-13 10:58 | Outpatient (REF) | payer MEDICARE, OTHER, SELFPAY ==
[2024-02-13 11:17] LABS: Appearance Urine Clear; Color Urine Yellow; Glucose Urine UA Negative (Negative); Leukocyte Esterase Urine Negative (Negative); Nitrite Urine Negative (Negative); PH 6.5 (5.0-9.0); Urine Blood Negative (Negative); Urine Ketones Negative (Negative); Urine Protein Negative (Neg-Trace)
[2024-02-13 11:20] LABS: Bacteria Urine None Seen (None Seen); Hyaline Casts Urine 0-2 /LPF (0-2); RBC Urine 0-2 /HPF (0-2); Squamous Epithelial Cell Urine 0-2 /HPF (0-2); WBC Urine 0-5 /HPF (0-5)
[2024-02-13 11:43] LABS: Creatinine Urine 74.03 mg/dL; Microalbum/Creatinine Ratio Ur 16.2 ug/mg cr (<30)
== END 2024-02-13 10:59 | disposition home or self-care (01) ==
LOC: HO.LNP 10:58
PROVIDERS: Visit Provider Internal Medicine
DX: E11.9 Type 2 diabetes mellitus without complications (principal); I10 Essential (primary) hypertension
CPT/HCPCS: 81001; 82043; 82570

== ENCOUNTER 2024-08-14 11:09 | Outpatient (REF) | payer MEDICARE, OTHER, SELFPAY ==
--- OUTSIDE RECORDS SUMMARY | 2024-08-14 11:12 | XMS_ITS ---
Author Organization Giovanni Bryant MD Address [address] [place] [id number] Care Team Providers Care Backend Tester Name Role Phone Giovanni Bryant Primary Care Provider REASON FOR VISIT fasting lipids Encounters Encounter Location Date Provider Diagnosis Giovanni Bryant MD [address] [place] [id number] 08/14/2024 Giovanni Bryant Type 2 diabetes sami itus without complication E11.9 and Pure hypercholesterolemia E78.00 ASSESSMENTS Encounter Date Diagnosis Assessment Notes Treatment Notes Treatment Clinical Notes 08/14/2024 Type 2 diabetes sami itus without complication (ICD-10 - E11.9) 08/14/2024 Pure hypercholestero lemia (ICD-10 - E78.00) PLAN OF TREATMENT Pending Test Test Name Order Date Liver Panel 08/14/2024 Glucose Fasting 08/14/2024 Lipid Panel with Reflex 08/14/2024 Hemoglobin A1c 08/14/2024 Next Appt Details Provider Name:Giovanni thompson, 09/08/2024 09:00:00 AM, [address] [place] [address], [address], [place], [phone], Provider Name:Giovanni thompson, 02/09/2025 07:30:00 AM, [address] [place] [address], [address], [place], [phone], Provider Name:Giovanni thompson, 02/16/2025 09:30:00 AM, [address] [place] [address], [address], [place], [phone],
--- OUTSIDE RECORDS SUMMARY | 2024-08-14 11:12 | XMS_ITS ---
Author Organization Giovanni Bryant MD Address [address] [place], [place] [id number] Care Team Providers Care Yard Pilot Name Role Phone Giovanni Bryant Primary Care Provider [phone] ALLERGIES Allergen (clinical drug ingredient) Drug/Non Drug Allergy documented on EMR Reaction Allergy Type Onset Date Status liraglutide Victoza ghostly white Drug Allergy A ctive ibuprofen Ibuprofen itch Drug Allergy Active RESULTS Component Value Reference Range Notes Microalbumin, Random Reviewed date:02/13/2024 12:07:08 PM Interpretation: Performing Lab:[facility], [address] [place] [phone] Notes/Report: Creatinine Urine 74.03 Microalbumin Urine 12.0 Microalbum/Creatinine Ratio Ur 16.2 <30 ug/mg cr Albumin/Creatinine Ratio Reference Ranges: Normal: < 30 ug/mg creatinine Microalbuminuria: 30 - 300 ug/mg creatinine Clinical Albuminuria: > 300 ug/mg creatinine UA ClnCatch+Micro w/rflx Cul t Reviewed date:02/13/2024 12:25:18 PM Interpretation: Performing Lab:[facility], [address] [place] [phone] Notes/Report: Urine, Clean Catch Color Urine Yellow Appearance Urine Clear PH 6.5 5.0-9.0 Glucose Urine UA Negative Negative mg/dL Urine Blood Negative Negative Specific [place] - Urine 1.010 1.005-1.025 Urine Protein Negative Neg-Trace mg/dL Urine Ketones Negative Negative mg/dL Nitrite Urine Negative Negative Leukocyte Esterase Urine Negative Negative RBC Urine 0-2 0-2 /HPF WBC Urine 0-5 0-5 /HPF Squamous Epithelial Cell Urine 0-2 0-2 /HPF Bacteria Urine None Seen None Seen Hyaline Casts Urine 0-2 0-2 /LPF REASON FOR VISIT annual visit, Accompanied by Madeleine MEDICATIONS Medication SIG (Take, Route, Frequency, Duration) Notes Start Date End Date Status Ciclopirox 0.77% as directed applied topically twice a day for 30 days 03/01/2020 Not-Taking Clobetasol Propionate 0.05 % 1 application to affected area Externally Twice a day for 10 day(s) 03/20/2018 Not-Taking FreeStyle Lite Test - USE TO TEST BLOOD SUGAR TWICE PER DAY for 50 Active Aspirin 325 MG 1 tablet Orally Once a day for 30 day(s) Active amLODIPine Besylate 10 MG TAKE 1 TABLET BY MOUTH EVERY DAY Active Furosemide 40 MG TAKE 1 TABLET BY SJ TH EVERY DAY for 90 Active Vitamin D 1000 UNIT 1 capsule Orally Onc e a day Active Atorvastatin Calcium 10 MG TAKE 1 TABLET BY MOUTH EVERY DAY Active metFORMIN HCl ER 500 MG TAKE 2 TABLETS B Y MOUTH TWICE A DAY Active SOCIAL HISTORY Tobacco Use: Social History Observation Description Date Details (start date - stop date) Former Smoker NA - NA Sex Assigned At : Social History Observation Description Sex Assigned At Unknown Tobacco Use/Smoking Question Answer Notes Patient is a former smoker How long has it been since y ou last smoked? > 10 years Additional Findings: Tobacco Non-User Fo rmer smoker, currently using no form of tobacco Alcohol Screen Question Answer Notes Did you have a drink containing alcohol in the p ast year? No Points 0 Interpretation Negative VITAL SIGNS BMI 31.95 kg/m2 02/13/2024 Blood pressure systolic 128 mm Hg 02/13/20 24 Blood pressure diastolic 60 mm Hg 024 Height 67 in 02/13/2024 Weight 204 lbs 02/13/2024 weight is down 14 pounds nicole noreen 08-20-23 Encounters Encounter Location Date Provider Diagnosis Giovanni Bryant MD [address] [place], [place] [phone] 02/13/2024 Giovanni Bryant Type 2 diabetes sami itus without complication E11.9 ; Essential hypertension I10 ; Pure hypercholesterolemia E78.00 ; Bilateral carotid artery disease, unspecified type I77.9 ; Colon cancer screening Z12.11 and Depression screening Z13.31 ASSESSMENTS Encounter Date Diagnosis Assessment Notes Treatment Notes Treatment Clinical Notes 02/13/2024 Type 2 diabetes sami itus without complication (ICD-10 - E11.9) stable, will continue current regiment 02/13/2024 Essential hypertensi on (ICD-10 - I10) stable, will continue current regiment 02/13/2024 Pure hypercholestero lemia (ICD-10 - E78.00) stable, will continue current regiment 02/13/2024 Bilateral carotid ar asim disease, unspecified type (ICD-10 - I77.9) stable, followed by vascular specialist 02/13/2024 Colon cancer screeni ng (ICD-10 - Z12.11) guaiac negative 02/13/2024 Depression screening (ICD-10 - Z13.31) negative screen PLAN OF TREATMENT Medication Medication Name Sig Start Date Stop Date Notes amLODIPine Besylate 10 MG TAKE 1 TABLET BY MOUTH EVERY DAY Atorvastatin Calcium 10 MG TAKE 1 TABLET BY MOUTH EVERY DAY metFORMIN HCl ER 500 MG TAKE 2 TABLETS B Y MOUTH TWICE A DAY Treatment Notes Assessment Notes Type 2 diabetes mellitus without complic ation stable, will continue current regiment Essential hypertension stable, will cont inue current regiment Pure hypercholesterolemia stable, will c ontinue current regiment Bilateral carotid artery dis ease, unspecified type stable, followed by vascular specialist Colon cancer screening guaiac negative Depression screening negative screen Next Appt Details Follow Up: 6 Months, Reason: dm Provider Name:Giovanni thompson, 09/08/2024 09:00:00 AM, [address], [address], [place], [place], [phone], Provider Name:Giovanni Amezquita ier, 02/09/2025 07:30:00 AM, [address], [address], [place], [phone], Provider Name:Giovanni Amezquita ier, 02/16/2025 09:30:00 AM, [address], [address], [place], [phone], Progress Notes * Examination Category Sub-Category Detail Notes General Examination GENERAL APPEARANCE: alert, w ell hydrated, in no distress HEAD: normocephalic EARS: BOTH EARS, normal THROAT: no exudate, no eryth yang, pharynx normal NECK/THYROID: no carotid bruit, no cervical lymphadenopathy HEART: regular rate and rhy thm, no murmurs, rubs, gallops LUNGS: no wheezes, rales, r honchi, good air movement, clear to auscultation bilaterally ABDOMEN: soft, nontender, non distended, no rebound tenderness, no organomegaly SKIN: good turgor, no susp icious lesions MALE GENITOURINARY: circumcised, no peni le lesions or discharge, testes descended bilaterally, no testicular mass RECTAL EXAM: stool guaiac negativ e, prostate normal, no masses palpable FOOT EXAM: Date: 02/13/2024 normal pinprick . normal pulse. normal light touch. PODIATRIC: normal pinprick, nor mal pulse, normal light touch History and Physical Notes * HPI (History of Present Illness) Category Sub-Category Detail Notes Depression Screening PHQ-9 Little inte rest or pleasure in doing things: Not at all Feeling down, depressed, or hopeless: No t at all Trouble falling or staying asleep, or sl eeping too much: Not at all Feeling tired or having little energy: N ot at all Poor appetite or overeating: Not at all Feeling bad about yourself o r that you are a failure, or have let yourself or your family down: Not at all Trouble concentrating on thi ngs, such as reading the newspaper or watching television: Not at all Moving or speaking so slowly that other people could have noticed; or the opposite, being so fidgety or restless that you have been moving around a lot more than usual: Not at all Thoughts that you would be b keri off or of hurting yourself in some way: Not at all Total Score: 0 Interpretation and Intervention Depression Bal knott Findings: Negative Follow-Up for Depression: : review of PH Q-9 found negative result, no follow-up needed SDOH Questions SDOH Questions In the past year have you been worried about losing housing?: No In the past year have you or any family members you live with been unable to get any of the following when it was really needed? Check all that apply:: None Fall Risk History Have you had any falls with injury in the past year?: No Have you had two or more falls in the st year?: No Communication Needs Communication Needs Does the patient have a hearing impairment: No Does the patient have a vision impairmen t?: Yes ?If yes, what is the vision impairment?: Glasses Does the patient have a cognition impair ment?: No
--- OUTSIDE RECORDS SUMMARY | 2024-08-14 11:13 | XMS_ITS | Patient Health Record ---
Author Organization Giovanni Bryant MD Address [address] [place], [place] [id number] Care Team Providers Care Campaign Assistant Name Role Phone Giovanni Bryant Primary Care Provider [phone] ALLERGIES Allergen (clinical drug ingredient) Drug/Non Drug Allergy documented on EMR Reaction Allergy Type Onset Date Status liraglutide Victoza ghostly white Drug Allergy A ctive ibuprofen Ibuprofen itch Drug Allergy Active RESULTS Component Value Reference Range Notes CSF Glucose Reviewed date:10/16/2023 07:08:34 PM Interpretation: Performing Lab:[address] [address] Notes/Report: CSF Appearance Clear, Colorless CSF Tube # 2 Glucose CSF 92 CSF Total Protein Reviewed date:10/16/2023 07:08:43 PM Interpretation: Performing Lab:[address] [address] Notes/Report: Total Protein CSF 50.9 15-45 mg/dL CSF Cell Count w Diff Reviewed date:10/16/2023 07:04:41 PM Interpretation: Performing Lab:[facility], [address] [place] [phone] Notes/Report: Appearance CSF CLEAR CSF Tube # 4 CSF Volume 4.5 Color CSF COLORLESS White Blood Cell CSF 1 Body Fluid WBC is a total nucleated cell count. When a differential is performed, the specimen is concentrated by cytocentrifugation. This sometimes results in the number of cells in the differential being greater than the actual cell count performed on the non-concentrated specimen. Red Blood Cell CSF 0 Lymphocytes CSF 100 Oligoclonal Banding Reviewed date:10/29/2023 04:34:09 PM Interpretation: Performing Lab:[facility], [address] [place] [address] Notes/Report: Oligoclonal Banding ABSENT No Oligoclonal bands are identified in the patient's CSF when compared to the corresponding serum sample. Oligoclonal bands are present in the CSF of more than 85% of patients with clinically definite multiple sclerosis (MS). To distinguish between oligoclonal bands in the CSF due to a peripheral gammopathy and oligoclonal bands due to local production in the CARPET [employer]OR L[employer] APPRENTICE, serum and CSF should be tested simultaneously. Oligoclonal bands can however be observed in a variety of other diseases, e.g., subacute sclerosing panen- cephalitis, inflammatory polyneuropathy, CARPET [employer]OR L[employer] APPRENTICE lupus, and brain tumors and infarctions. The clinical significance of a numerical band count, determined by isoelectric focusing, has not been definitively defined. The data should be interpreted in conjunction with all pertinent clinical and laboratory data for this patient. THIS TEST PERFORMED AT: [place] [address] [place] [address] [phone] AT RISK SPECIALIST: MARY CAMARGO MD, PHD Protein Electrophoresis, CSF Reviewed date:10/29/2023 04:36:02 PM Interpretation: Performing Lab:[facility], [address] [place] [phone] Notes/Report: Total Protein, CSF 55 REFERENCE RANGE: 15-60 mg/dL Prealbumin, CSF 3.0% REFERENCE RA NGE: 1.3-6.9% Albumin, CSF 57.3% REFERENCE RANGE : 51.9-67.8% Nnxai-8-Betalsnb,CSF 6.7% (H) REFEREN CE RANGE: 1.8-6.5% Rdjyw-9-Jwwgvyxc,CSF 8.4% REFEREN CE RANGE: 4.6-10.8% Beta Globulin, CSF 16.8% REFERENCE RANGE: 7.8-18.2% Gamma Globulin 7.8% REFERENCE RAN GE: 4.8-17.6% PEC Interpretation CSF SEE NOTE Pattern shows one or more protein fractions are outside their reference interval. No abnormal bands detected. Interpret the results in conjunction with clinical history. CSF protein electrophoresis may be useful in the screening of neoplastic disease in the central nervous system (CARPET [employer] APPRENTICE). It is not a sensitive and specific assay for detecting oligoclonal bands in CAR[employer]ENTICE and therefore not recommended for multiple sclerosis (MS). To support the diagnosis and detection of oligoclonal bands for MS, Oligoclonal bands (IgG) CSF by Isoelectrofocusing is recommended. THIS TEST PERFORMED AT: [place] [address] [place] [address] [phone] AT RISK SPECIALIST: MARY CAMARGO MD, PHD Gram stain Reviewed date:10/20/2023 05:34:14 PM Interpretation: Performing Lab:[address] [address] Notes/Report: Gram stain Gram stain results: Gram stain No polys Gram stain No organisms seen CSF Culture Reviewed date:10/20/2023 05:33:47 PM Interpretation: Performing Lab:[address] [address] Notes/Report: CSF Culture No growth after 3 days. Meningitis/Enceph Panel CSF Reviewed date:10/16/2023 07:05:34 PM Interpretation: Performing Lab:[address] [address] Notes/Report: Cryptococcus neoformans/gattii Not Detected Not Detect. Cytomegalovirus Not Detected Not Detect. Enterovirus Not Detected Not Detect. Escherichia coli K1 Not Detected Not Detect. Haemophilus influenzae Not Detected Not Detect. Herpes simplex virus 1 Not Detected Not Detect. Herpes simplex virus 2 Not Detected Not Detect. Human herpesvirus 6 Not Detected Not Detect. Human parechovirus Not Detected Not Detect. Listeria monocytogenes Not Detected Not Detect. Neisseria meningitidis Not Detected Not Detect. Streptococcus agalactiae Not Detected Not Detect. Streptococcus pneumoniae Not Detected Not Detect. Varicella zoster virus Not Detected Not Detect. All results must be correlated with clinical findings. A negative Bio[employer] ME Panel result does not exclude the possibility of [employer]ENTICE infection and should not be used as the sole basis for diagnosis, treatment, or other management decisions. Negative test results can be observed for several reasons, including CAR[employer]PRENTICE infections caused by an organism that is not detected by the [employer] ME Panel. Non-K1 E. coli serotypes and non-encapsulated strains of Neisseria meningitidis are not detected by the [employer] ME Panel. A positive Bio[employer] ME Panel result (detection of organism nucleic acid) does not imply that the corresponding organisms are infectious or the causative agents for clinical symptoms. Viral, bacterial, and yeast nucleic acid may persist in vivo independently of organism viability and/or active infection. Herpesviruses (CMV, HHV-6, HSV-1, HSV-2, and VZV) can exist in latent forms that may be reactivated during infection by other pathogens, including agents not detected by the Bio[employer] ME Panel that may cause meningitis/encephalitis (e.g., Mycobacterium tuberculosis or HIV). When detected by the BioFire ME Panel, herpesvirus results should be considered as the likely cause of meningitis/encephalitis only in appropriate clinical context and following expert consultation. The BioFire ME Panel does not distinguish between latent and active CMV and HHV-6 infections. This assay is performed by Multiplexed PCR, utilizing the [employer] Film Array. CSF Volume Reviewed date:10/20/2023 05:34:05 PM Interpretation: Performing Lab:[facility], [address] [place] [phone] Notes/Report: CSF Volume CSF volume mL CSF Volume 4 Appearance Reviewed date:10/20/2023 05:33:56 PM Interpretation: Performing Lab:[facility], [address] [place] [phone] Notes/Report: Appearance Appearance Appearance Clear XR chest 1V Reviewed date:10/16/2023 07:08:16 PM Interpretation: Performing Lab: Notes/Report: [address] [address] XRay Report Signed Patient: Jono Biggs MR#: [id number] : 1955 Acct:[id number] Age/Sex: 67 / M ADM Date: 10/15/23 Loc: .ED Attending Dr: Ordering Physician: Ezra Crowley MD Date of Service: 10/15/23 Procedure(s): XR chest 1V Accession Number(s): [id number] cc: Giovanni Bryant MD; Ezra Crowley MD EXAMINATION: XR CHEST CLINICAL INFORMATION: Question pneumonia COMPARISON: None available. TECHNIQUE: Frontal view of the chest was obtained. FINDINGS: The lungs are clear with no focal consolidation. No evidence of pneumothorax, pulmonary edema, or pleural effusions. The cardiomediastinal contour is unremarkable. Sternal wires are present. No acute osseous findings are seen. XR/XR chest 1V IMPRESSION: No acute cardiopulmonary findings. Dictated By: Ronny Greene MD Signed By: <Electronically signed by Ronny Greene MD in [place]> 10/15/232212 DD/ 99 TD/TT: Transportation Escort: ARSENIO Complete Blood Count Auto Di ff Reviewed date:10/16/2023 07:07:54 PM Interpretation: Performing Lab:[facility], [address] [place] [phone] Notes/Report: White Blood Count 4.9 4.8-10.8 X10*3/uL Red Blood Count 4.83 4.60-5.80 X10*6/uL Hemoglobin 13.9 14.0-18.0 g/dl Hematocrit 40.7 42.0-52.0 % Mean Corpuscular Volume 84.3 80.0-98.0 fL Mean Corpuscular Hemoglobin 28.8 27.0-33.0 pg Mean Corpuscular HGB Conc 34.2 31.0-36.0 g/dl Red Cell Distribution Width 13.1 11.0-16.0 % Platelet Count 236 160-400 X10*3/uL Mean Platelet Volume 9.2 9.4-12.4 fL Neutrophils Percent Auto 86.5 45-73 % Imm Gran Pct Auto 0.4 0.0-0.4 % Lymphocytes Percent Auto 7.0 20-40 % Monocytes Percent Auto 5.1 2-11 % Eosinophils Percent Auto 0.6 0-4 % Basophils Percent Auto 0.4 0-2 % NRBC Pct Auto 0.0 0.0-0.2 /100WBC Neutrophils Absolute Auto 4.2 2.0-8.3 x10*3/u L Imm Gran Abs Auto 0.02 0.00-0.03 X10*3/uL Lymphocytes Absolute Auto 0.3 1.2-4.9 X10*3/u L Monocytes Absolute Auto 0.3 0.1-1.2 X10*3/uL Eosinophils Absolute Auto 0.0 0.0-0.4 X10*3/u L Basophils Absolute Auto 0.0 0.0-0.2 X10*3/uL NRBC Abs Auto 0.000 0.0-0.012 X10*3/uL Basic Metabolic Panel Reviewed date:10/16/2023 07:09:39 PM Interpretation: Performing Lab:[facility], [address] [place] [phone] Notes/Report: Sodium 137 135-145 mmol/L Potassium 4.2 3.3-5.1 mmol/L Chloride 103 96-108 mmol/L Carbon Dioxide 25 22-29 mmol/L Anion Gap 13 12-20 Blood Urea Nitrogen 19 9-16 mg/dL Creatinine 1.74 0.5-1.4 mg/dL Creatinine Clr Calc Pharmacy 46.0 eGFR (calculated from the MDRD study equation) and eCrCl (calculated from the Cockcroft-Gault equation) are based on different parameters and may not yield comparable results. If eCrCl result is absurd, please check patient's height/weight. Estimated Glomerular Filt Rate 39 NOTE: For -[place] individuals, multiply the result by 1.210. Chronic Kidney Disease: Estimated GFR < 60 mL/min/1.73m2 Severe Kidney Disease: Estimated GFR < 15 mL/min/1.73m2 Glucose Random 188 60-115 mg/dL Calcium 9.2 8.4-10.2 mg/dL Glucose, Whole Blood Reviewed date:10/16/2023 07:10:08 PM Interpretation: Performing Lab:[facility], [address] [place] [address] Notes/Report: Glucose, Whole Blood 179 60-115 mg/dL METER # : [id number] MR head/brain wo con Reviewed date:10/17/2023 12:36:56 PM Interpretation: Performing Lab: Notes/Report: [facility] [address] [place] [address] Magnetic Resonance Report Signed Patient: Jono Biggs MR#: [id number] : 1955 Acct:[id number] Age/Sex: 67 / M ADM Date: 10/15/23 Loc: [facility] 479-[address]: Anil Alaniz MD Ordering Physician: Anil Alaniz MD Date of Service: 10/16/23 Procedure(s): MR head/brain wo con Accession Number(s): [id number] cc: Giovanni Bryant MD; Anil Alaniz MD EXAMINATION: MR BRAIN WITHOUT CONTRAST CLINICAL INFORMATION: Weakness. COMPARISON: Head CT dated 10/15/2023. MRI from 02/27/2016. TECHNIQUE: Multiplanar, multisequence imaging of the brain was performed without contrast. FINDINGS: No diffusion abnormalities are identified to suggest an acute infarct. No mass effect or midline shift is seen. There is a chronic infarct with encephalomalacia in the right frontal lobe. Additional focal gliosis noted in the right occipital lobe. Mild chronic white matter microangiopathic changes are visible. No extra-axial fluid collections are seen. The brainstem is normal. Small chronic infarcts visible in the right cerebellar hemisphere. The gradient refocused acquisition is normal. Moderate diffuse brain parenchymal volume loss evident with concordant ex vacuo dilatation of the ventricles. The craniovertebral junction, marrow signal, and midline structures are normal. The major intracranial flow voids at the level of the [place] are preserved. The dural venous sinus flow voids are maintained. The mastoid air cells and paranasal sinuses are well aerated. MR/MR head/brain wo con IMPRESSION: No acute intracranial process. 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 Additional small chronic infarcts in the right cerebellar hemisphere. Mild chronic white matter microangiopathy and moderate diffuse parenchymal volume loss. Dictated By: SPEEDY JOHNSON MD Signed By: <Electronically signed by SPEEDY JOHNSON MD in OV> 10/16/232142 DD/ 17 TD/TT: Transportation Escort: PATTY Glucose, Whole Blood Reviewed date:10/16/2023 07:03:08 PM Interpretation: Performing Lab:[facility], [address] [place] [phone] Notes/Report: Glucose, Whole Blood 132 60-115 mg/dL METER # : [id number] Glucose, Whole Blood Reviewed date:10/17/2023 12:37:03 PM Interpretation: Performing Lab:[facility], [address] [place] [phone] Notes/Report: Glucose, Whole Blood 143 60-115 mg/dL METER # : [id number] Glucose, Whole Blood Reviewed date:10/17/2023 12:35:56 PM Interpretation: Performing Lab:[facility], [address] [place] [phone] Notes/Report: Glucose, Whole Blood 123 60-115 mg/dL METER # : [id number] Complete Blood Count no Diff Reviewed date:10/17/2023 12:38:01 PM Interpretation: Performing Lab:[facility], [address] [place] [phone] Notes/Report: White Blood Count 9.9 4.8-10.8 X10*3/uL Red Blood Count 5.12 4.60-5.80 X10*6/uL Hemoglobin 14.8 14.0-18.0 g/dl Hematocrit 44.0 42.0-52.0 % Mean Corpuscular Volume 85.9 80.0-98.0 fL Mean Corpuscular Hemoglobin 28.9 27.0-33.0 pg Mean Corpuscular HGB Conc 33.6 31.0-36.0 g/dl Red Cell Distribution Width 13.4 11.0-16.0 % Platelet Count 268 160-400 X10*3/uL Mean Platelet Volume 9.7 9.4-12.4 fL NRBC Pct Auto 0.0 0.0-0.2 /100WBC NRBC Abs Auto 0.000 0.0-0.012 X10*3/uL Basic Metabolic Panel Fastin g Reviewed date:10/17/2023 12:38:01 PM Interpretation: Performing Lab:[facility], [address] [place] [phone] Notes/Report: Sodium 137 135-145 mmol/L Potassium 3.7 3.3-5.1 mmol/L Chloride 100 96-108 mmol/L Carbon Dioxide 24 22-29 mmol/L Anion Gap 17 12-20 Blood Urea Nitrogen 35 9-16 mg/dL Creatinine 2.67 0.5-1.4 mg/dL Creatinine Clr Calc Pharmacy 29.9 eGFR (calculated from the MDRD study equation) and eCrCl (calculated from the Cockcroft-Gault equation) are based on different parameters and may not yield comparable results. If eCrCl result is absurd, please check patient's height/weight. Estimated Glomerular Filt Rate 24 NOTE: For -[place] individuals, multiply the result by 1.210. Chronic Kidney Disease: Estimated GFR < 60 mL/min/1.73m2 Severe Kidney Disease: Estimated GFR < 15 mL/min/1.73m2 Glucose Fasting 106 60-99 mg/dL A fasting glucose from 100-125 mg/dl is considered impaired (pre-diabetes). Calcium 9.6 8.4-10.2 mg/dL Glucose, Whole Blood Reviewed date:10/17/2023 12:34:40 PM Interpretation: Performing Lab:[facility], [address] [place] [phone] Notes/Report: Glucose, Whole Blood 117 60-115 mg/dL METER # : [id number] Drug Screen Urine Reviewed date:10/17/2023 12:35:48 PM Interpretation: Performing Lab:[facility], [address] [place] [phone] Notes/Report: Opiate Screen Urine Not Detected Not Detect Opiate cut-off is 300 ng/mL. Positive results are unconfirmed and should not be used for non-medical purposes. Barbiturates, Urine Not Detected Not Detect Barbiturate cut-off is 200 ng/mL. Positive results are unconfirmed and should not be used for non-medical purposes. Phencyclidine Screen Urine Not Detected Not Detect Phencyclidine cut-off is 25 ng/mL. Positive results are unconfirmed and should not be used for non-medical purposes. Amphetamine Screen Urine Not Detected Not Detect Amphetamine cut-off is 1000 ng/mL. Positive results are unconfirmed and should not be used for non-medical purposes. Benzodiazepines Screen Urine Not Detected Not Detect Benzodiazepine cut-off is 200 ng/mL. Positive results are unconfirmed and should not be used for non-medical purposes. Cocaine Screen Urine Not Detected Not Detect Cocaine cut-off is 300 ng/mL. Positive results are unconfirmed and should not be used for non-medical purposes. Cannabinoid Screen Urine Not Detected Not Detect Cannabinoid cut-off is 50 ng/mL. Positive results are unconfirmed and should not be used for non-medical purposes. Fentanyl, urine Not Detected Not Detect Fentanyl cut-off is 1 ng/mL. Positive results are unconfirmed and should not be used for non-medical purposes. UA ClnCatch+Micro w/rflx Cul t Reviewed date:10/17/2023 12:38:01 PM Interpretation: Performing Lab:[address] [address] Notes/Report: [id number] Urine, Clean Catch Color Urine Yellow Appearance Urine Clear PH 5.5 5.0-9.0 Glucose Urine UA 100 Negative mg/dL Urine Blood Trace Negative Specific [place] - Urine 1.015 1.005-1.025 Urine Protein Trace Neg-Trace mg/dL Urine Ketones Trace Negative mg/dL Nitrite Urine Negative Negative Leukocyte Esterase Urine Negative Negative RBC Urine 0-2 0-2 /HPF WBC Urine 0-5 0-5 /HPF Squamous Epithelial Cell Urine 0-2 0-2 /HPF Bacteria Urine None Seen None Seen Hyaline Casts Urine 3-5 0-2 /LPF Glucose, Whole Blood Reviewed date:10/17/2023 12:37:25 PM Interpretation: Performing Lab:[address] [address] Notes/Report: Glucose, Whole Blood 133 60-115 mg/dL METER # : [id number] Basic Metabolic Panel Fastin g Reviewed date:10/26/2023 06:16:01 PM Interpretation: Performing Lab:[address] [address] Notes/Report: Sodium 138 135-145 mmol/L Potassium 3.9 3.3-5.1 mmol/L Chloride 102 96-108 mmol/L Carbon Dioxide 26 22-29 mmol/L Anion Gap 14 12-20 Blood Urea Nitrogen 16 9-16 mg/dL Creatinine 1.30 0.5-1.4 mg/dL Estimated Glomerular Filt Rate 55 NOTE: For -[place] individuals, multiply the result by 1.210. Chronic Kidney Disease: Estimated GFR < 60 mL/min/1.73m2 Severe Kidney Disease: Estimated GFR < 15 mL/min/1.73m2 Glucose Fasting 171 60-99 mg/dL A fasting glucose of 126 mg/dl or greater on more than one occasion is considered diagnostic of diabetes. Calcium 9.5 8.4-10.2 mg/dL US carotid duplex BI Reviewed date:12/06/2023 09:18:24 AM Interpretation: Performing Lab: Notes/Report: [facility] [address] [place] [address] [place] [address] Ultrasound Report Signed Patient: Jono Biggs MR#: [id number] : 1955 Acct:[id number] Age/Sex: 68 / M ADM Date: 12/04/23 Loc: HO.HMGCX Attending Dr: Terry Urban MD Ordering Physician: Terry Urban MD Date of Service: 12/04/23 Procedure(s): US carotid duplex BI Accession Number(s): [id number] cc: Giovanni Bryant MD; Terry Urban MD EXAMINATION: US EXTRACRANIAL CAROTID DUPLEX, BILATERAL CLINICAL INFORMATION: Occlusion and stenosis of bilateral carotid arteries COMPARISON: Carotid duplex 10/29/2022 TECHNIQUE: Real-time ultrasound and Doppler techniques (integrating B-mode 2-D vascular images, Doppler spectral analysis and color-flow Doppler imaging) were utilized to interrogate the extracranial carotid arteries, the vertebral arteries and proximal subclavian arteries bilaterally. The degree of stenosis is determined by criteria similar to NASCET. FINDINGS: Right Side: 1. There is severe atherosclerotic plaque seen in the bifurcation/proximal ICA region. 2. The common carotid artery PSV proximally is 74.5 cm/s and distally 79.2 cm/s. 3. The proximal internal carotid artery velocities are 145 cm/s systolic and 19.6 cm/s diastolic. 4. The proximal external carotid artery PSV is 134 cm/s. 5. The vertebral artery shows antegrade flow. 6. The subclavian artery waveforms are normal. Left Side: 1. There is severe atherosclerotic plaque seen in the bifurcation/proximal ICA region. 2. The common carotid artery PSV proximally is 84.4 cm/s and distally 100 cm/s. 3. The proximal internal carotid artery velocities are 93.2 cm/s systolic and 18.5 cm/s diastolic. 4. The proximal external carotid artery PSV is 113 cm/s. 5. The vertebral artery shows antegrade flow. 6. The subclavian artery waveforms are normal. US/US carotid duplex BI IMPRESSION: 1. RIGHT: Moderate, hemodynamically significant stenosis of the proximal right internal carotid artery corresponding to a 50-79% stenosis by velocity criteria. 2. LEFT: Minimal, non-hemodynamically significant stenosis of the proximal left internal carotid artery corresponding to a 0-49% stenosis by velocity criteria, mildly improved from prior. Dictated By: Rebeca Mendoza Signed By: <Electronically signed by Rebeca Mendoza in OV> 12/04/23 7437 DD/ 1410 TD/TT: Transportation Escort: Complete Blood Count Auto Di ff Reviewed date:02/11/2024 04:30:18 PM Interpretation: Performing Lab:[facility], [address] [place] [phone] Notes/Report: White Blood Count 8.6 4.8-10.8 X10*3/uL Red Blood Count 4.76 4.60-5.80 X10*6/uL Hemoglobin 13.9 14.0-18.0 g/dl Hematocrit 41.2 42.0-52.0 % Mean Corpuscular Volume 86.6 80.0-98.0 fL Mean Corpuscular Hemoglobin 29.2 27.0-33.0 pg Mean Corpuscular HGB Conc 33.7 31.0-36.0 g/dl Red Cell Distribution Width 13.2 11.0-16.0 % Platelet Count 319 160-400 X10*3/uL Mean Platelet Volume 10.2 9.4-12.4 fL Neutrophils Percent Auto 64.8 45-73 % Imm Gran Pct Auto 0.5 0.0-0.4 % Lymphocytes Percent Auto 21.7 20-40 % Monocytes Percent Auto 8.2 2-11 % Eosinophils Percent Auto 3.5 0-4 % Basophils Percent Auto 1.3 0-2 % NRBC Pct Auto 0.0 0.0-0.2 /100WBC Neutrophils Absolute Auto 5.6 2.0-8.3 x10*3/u L Imm Gran Abs Auto 0.04 0.00-0.03 X10*3/uL Lymphocytes Absolute Auto 1.9 1.2-4.9 X10*3/u L Monocytes Absolute Auto 0.7 0.1-1.2 X10*3/uL Eosinophils Absolute Auto 0.3 0.0-0.4 X10*3/u L Basophils Absolute Auto 0.1 0.0-0.2 X10*3/uL NRBC Abs Auto 0.000 0.0-0.012 X10*3/uL Comprehensive [place]. Panel Fa st Reviewed date:02/11/2024 12:55:14 PM Interpretation: Performing Lab:[address] [address] Notes/Report: Sodium 140 135-145 mmol/L Potassium 3.7 3.3-5.1 mmol/L Chloride 100 96-108 mmol/L Carbon Dioxide 28 22-29 mmol/L Anion Gap 16 12-20 Blood Urea Nitrogen 20 9-16 mg/dL Creatinine 1.67 0.5-1.4 mg/dL Estimated Glomerular Filt Rate 41 NOTE: For -[place] individuals, multiply the result by 1.210. Chronic Kidney Disease: Estimated GFR < 60 mL/min/1.73m2 Severe Kidney Disease: Estimated GFR < 15 mL/min/1.73m2 Glucose Fasting 97 60-99 mg/dL Calcium 9.5 8.4-10.2 mg/dL Bilirubin Total 1.0 0.0-1.0 mg/dL Aspartate Amino Transferase 21 5-37 U/L Alanine Aminotransferase 15 0-40 U/L Total Protein 7.4 6.5-8.0 g/dL Albumin Level 4.4 3.5-5.0 g/dL Alkaline Phosphatase 62 39-117 U/L Lipid Panel Reviewed date:02/11/2024 12:41:04 PM Interpretation: Performing Lab:[address] [address] Notes/Report: Triglycerides 85 <150 mg/dL Desirable Triglyceride: less than 150 mg/dL Borderline High Triglyceride 150-199 mg/dL High Triglyceride: 200-499 mg/dL Very High Triglyceride: greater than or equal to 5OO mg/dL Cholesterol 143 <200 mg/dL Desirable Cholesterol: less than 200 mg/dL Borderline High Cholesterol: 200-239 mg/dL High Cholesterol: greater than 239 mg/dL LDL Cholesterol Calculated 82 <100 mg/dL Desirable LDL: less than 100 mg/dL Near Optimal/Above Optimal LDL: 110-129 mg/dL Borderline High LDL: 130-159 mg/dL High LDL: 160-189 mg/dL Very High LDL: greater than or equal to 190 mg/dL HDL Cholesterol 44 >40 mg/dL Desirable HDL: greater than 40 mg/dL Note: This HDL assay may give artificially low results in patients with liver disease. PSA,Total (Free>4and<10) Reviewed date:02/11/2024 12:42:33 PM Interpretation: Performing Lab:[address] [address] Notes/Report: PSA,Total (Free>4and<10) 1.93 0.00-4.00 ng/mL A Free PSA was not performed: The percentage of Free PSA can be used to enhance the differentiation of prostate cancer from benign prostatic disease in subjects whose PSA levels are between 4.0 and 10.0 ng/mL. For subjects whose PSA levels are below 4.0 or above 10.0 ng/mL, the risk of prostate cancer is determined on the basis of the PSA alone. Therefore the % Free PSA is recommended only for those subjects whose PSA levels are between 4.0 and 10.0 ng/mL. PSA methodology: [place] Alinity i Chemiluminescent Microparticle Immunoassay (CMIA) Hemoglobin A1c Reviewed date:02/11/2024 12:27:56 PM Interpretation: Performing Lab:[address] [phone] Notes/Report: Hemoglobin A1c % 5.9 <6.0 % Hemoglobin A1C Reference Range Adults: 4.8 - 6.0 % Non diabetic: < 6.0 % Goal: < 7.0 % Additional Action Suggested: > 8.0 % Note: Hemoglobin A1c results are invalid for patients with abnormal amounts of HbF. Blood transfusions may impact the HbA1c concentration in the patient sample. Estimated Average Glucose 123 eAG = Estimated average glucose which is %A1C expressed as average glucose, using the formula of the J7G-Dvbjche Average Glucose study (ADAG), Diabetes Care, Vol.31,#8, Apr. 2007 Microalbumin, Random Reviewed date:02/13/2024 12:07:08 PM Interpretation: Performing Lab:[address] [phone] Notes/Report: Creatinine Urine 74.03 Microalbumin Urine 12.0 Microalbum/Creatinine Ratio Ur 16.2 <30 ug/mg cr Albumin/Creatinine Ratio Reference Ranges: Normal: < 30 ug/mg creatinine Microalbuminuria: 30 - 300 ug/mg creatinine Clinical Albuminuria: > 300 ug/mg creatinine UA ClnCatch+Micro w/rflx Cul t Reviewed date:02/13/2024 12:25:18 PM Interpretation: Performing Lab:[facility], [address] [place] [phone] Notes/Report: Urine, Clean Catch Color Urine Yellow Appearance Urine Clear PH 6.5 5.0-9.0 Glucose Urine UA Negative Negative mg/dL Urine Blood Negative Negative Specific [place] - Urine 1.010 1.005-1.025 Urine Protein Negative Neg-Trace mg/dL Urine Ketones Negative Negative mg/dL Nitrite Urine Negative Negative Leukocyte Esterase Urine Negative Negative RBC Urine 0-2 0-2 /HPF WBC Urine 0-5 0-5 /HPF Squamous Epithelial Cell Urine 0-2 0-2 /HPF Bacteria Urine None Seen None Seen Hyaline Casts Urine 0-2 0-2 /LPF REASON FOR REFERRAL Reason bilaterak carotid ar asim disease Diagnosis 1 Coronary atheroscler osis due to lipid rich plaque (I25.83) Diagnosis 2 Bilateral carotid ar asim disease, unspecified type (I77.9) Referral Organization Giovanni Bryant MD Referring Provider First Name Giovanni Referring Provider Last Name Annette Referring Provider Speciality Internal M edicine Referred Provider TERRY URBAN Referred Provider Specialty Vascular [facility] [employer] General Notes Sandra Harrington 09:17:47 AM EDT > info faxed , Melissa Leon 12/09/2023 09:09:33 AM EDT > PATIENT SCHEDULED FOR 12/10/23 AT9AM Referral Priority Routine Referral Appointment Date 12/10/2023 MEDICATIONS Medication SIG (Take, Route, Frequency, Duration) Notes Start Date End Date Status Aspirin 325 MG 1 tablet Orally Once a day for 30 day(s) Active amLODIPine Besylate 10 MG TAKE 1 TABLET BY MOUTH EVERY DAY Active Ciclopirox 0.77% as directed applied topically twice a day for 30 days 03/01/2020 Not-Taking Atorvastatin Calcium 10 MG TAKE 1 TABLET BY MOUTH EVERY DAY for 90 Active Clobetasol Propionate 0.05 % 1 application to affected area Externally Twice a day for 10 day(s) 03/20/2018 Not-Taking Vitamin D 1000 UNIT 1 capsule Orally Onc e a day Active FreeStyle Lite Test - USE TO TEST BLOOD SUGAR TWICE PER DAY for 50 Active Furosemide 40 MG TAKE 1 TABLET BY SJ TH EVERY DAY for 90 Active metFORMIN HCl ER 500 MG TAKE 2 TABLETS B Y MOUTH TWICE A DAY for 90 Active IMMUNIZATIONS Vaccine Route Administration Date Status Comme nts DECLINED, FLU Unknown 10/26/2013 Administered PPSV23 (Pnemovax) IM Intramuscular 08/12/2014 Administered zFluzone Quadrivalent IM Intramuscular 07/22/2015 Administ ered Fluarix Quadrivalent IM Intramuscular 05/22/2016 Administe red Fluarix Quadrivalent IM Intramuscular 06/11/2017 Administe red Fluarix Quadrivalent IM Intramuscular 09/18/2018 Administe red Fluarix Quadrivalent IM Intramuscular 07/07/2019 Administe red Influenza High Dose IM Intramuscular 05/06/2020 Administer ed Covid Vaccine Unknown 10/31/2020 Administered Pfizer Covid Vaccine Unknown 11/21/2020 Administered Pfizer SARS-COV-2 Pfizer Unknown 06/21/2021 Administered Influenza High Dose Unknown 06/19/2022 Administered [facility] Influenza High Dose IM Intramuscular 08/20/2023 Administer ed Flu Vaccine Unknown 05/26/2015 Refused TDaP Unknown 07/22/2015 Refused SOCIAL HISTORY Tobacco Use: Social History Observation [...] ast year? No Points 0 Interpretation Negative PROBLEMS Problem Type ICD Code Onset Dates Problem Status W/U Status Risk SNOMED Code Notes Problem CRF (chronic renal failure) (N18.9) Active confirmed Chronic yinka al failure syndrome (65769966) Problem Coronary atherosclerosis due to lipid rich plaque (I25.83) Active confirmed 59680252 Problem Dupuytren contractur e (M72.0) Active confirmed 077835623 Problem Essential hypertensi on (I10) Active confirmed 83368694 Problem Type 2 diabetes mellitus without complication (E11.9) Active confirmed 03837511 Problem Low HDL (under 40) (E78.6) Active confirmed 859939398 Problem Stenosis of right carotid artery (I65.21) Active confirmed 249079860202584 Problem Morbid obesity due t o excess calories (E66.01) Active confirmed 679326662 Problem Diabetic polyneuropathy associated with type 2 diabetes mellitus (E11.42) Active confirmed 80913051 Problem Stenosis of right internal carotid artery with cerebral infarction (I63.231) Active confirmed 95555331987534 Problem Pure hypercholesterolemia (E78.00) Active confirmed 921794431 Problem Bilateral carotid artery disease, unspecified type (I77.9) Active confirmed 230301788 VITAL SIGNS Blood pressure diastolic 60 mm Hg 02/13/2024 jordan ght is down 14 pounds since 08-20-23 Height 67 in 02/13/2024 weight is down 14 pounds since 08-20-23 Blood pressure systolic 128 mm Hg 02/13/2024 weig ht is down 14 pounds since 08-20-23 Weight 204 lbs 02/13/2024 weight is down 14 pounds since 08-20-23 BMI 31.95 kg/m2 02/13/2024 weight is down 14 pounds since 08-20-23 Encounters Encounter Location Date Provider Diagnosis Giovanni Bryant MD [address] [place], [place] [id number] 02/13/2024 Giovanni Bryant Type 2 diabetes sami itus without complication E11.9 ; Essential hypertension I10 ; Pure hypercholesterolemia E78.00 ; Bilateral carotid artery disease, unspecified type I77.9 ; Colon cancer screening Z12.11 and Depression screening Z13.31 Giovanni Bryant MD [address] [place] [id number] 02/11/2024 Giovanni Bryant Blood tests for rout ine general physical examination Z00.00 ; Type 2 diabetes mellitus without complication E11.9 ; Essential hypertension I10 ; Low HDL (under 40) E78.6 and Pure hypercholesterolemia E78.00 Giovanni Bryant MD [address] [id number] 08/14/2024 Giovanni Bryant Type 2 diabetes sami itus without complication E11.9 and Pure hypercholesterolemia E78.00 Giovanni Bryant MD [address] [place] [id number] 08/20/2023 Giovanni Bryant Encounter for immuni zation Z23 ; Type 2 diabetes mellitus without complication E11.9 ; Essential hypertension I10 ; Pure hypercholesterolemia E78.00 and Stenosis of right carotid artery I65.21 Giovanni Bryant MD [address] [id number] 10/17/2023 Giovanni Bryant MD [address] [id number] 10/17/2023 Giovanni Bryant MD [address] [id number] 10/23/2023 Giovanni Bryant MD [address] [id number] 11/01/2023 Giovanni Bryant ASSESSMENTS Encounter Date Diagnosis Assessment Notes Treatment Notes Treatment Clinical Notes 02/13/2024 Essential hypertensi on (ICD-10 - I10) stable, will continue current regiment 02/13/2024 Type 2 diabetes sami itus without complication (ICD-10 - E11.9) stable, will continue current regiment 02/11/2024 Type 2 diabetes sami itus without complication (ICD-10 - E11.9) 02/11/[address] ine general physical examination (ICD-10 - Z00.00) 08/14/2024 Type 2 diabetes sami itus without complication (ICD-10 - E11.9) 08/20/2023 Encounter for immunization (ICD-10 - Z23) high dose flu vaccine adminsitered 08/20/2023 Type 2 diabetes sami itus without complication (ICD-10 - E11.9) has good a1c, will continue current regiment 02/13/2024 Pure hypercholestero lemia (ICD-10 - E78.00) stable, will continue current regiment 02/11/2024 Essential hypertensi on (ICD-10 - I10) 08/14/2024 Pure hypercholestero lemia (ICD-10 - E78.00) 08/20/2023 Essential hypertensi on (ICD-10 - I10) well controlled, will continue current regiment 02/13/2024 Bilateral carotid ar asim disease, unspecified type (ICD-10 - I77.9) stable, followed by vascular specialist 02/11/2024 Low HDL (under 40) (ICD-10 - E78.6) 08/20/2023 Pure hypercholestero lemia (ICD-10 - E78.00) well controlled, will continue curent regiment 02/13/2024 Colon cancer screeni ng (ICD-10 - Z12.11) guaiac negative 02/11/2024 Pure hypercholestero lemia (ICD-10 - E78.00) 08/20/2023 Stenosis of right ca rotid artery (ICD-10 - I65.21) will rpeat u/s/ order printed and put in future folder, pending diagnostic follow 02/13/2024 Depression screening (ICD-10 - Z13.31) negative screen PLAN OF TREATMENT Pending Test Test Name Order Date Electrocardiogram (EKG) 12/25/2018 XR CHEST 2 VIEW PA & LAT 12/21/2011 US CAROTID BILATERAL DOPPLER 01/17/2021 US CAROTID BILATERAL DOPPLER 08/13/2022 Liver Panel 08/14/2024 Glucose Fasting 08/14/2024 Lipid Panel with Reflex 08/14/2024 Hemoglobin A1c 08/14/2024 Future Test Test Name Order Date US CAROTID BILATERAL DOPPLER 11/19/2023 Next Appt Details Provider Name:Giovanni thompson, 09/08/2024 09:00:00 AM, [address] [place] [address], [address], [place], [place], [phone], Provider Name:Giovanni thompson, 02/09/2025 07:30:00 AM, [address] [facility], [address], [place], [place], [phone], Provider Name:Giovanni thompson, 02/16/2025 09:30:00 AM, [address], [address], [place], [phone], Insurance Providers Payer Name Payer Address Payer Phone Subscriber Number Group Number Insured Name Patient Relationship to Insured Coverage Start Date Coverage End Date [employer] [address] [place] [address] [id number] Jono Biggs Self - patient is the insured [facility] [address] [place] [address] [id number] Jono Biggs Self - patient is the insured MEDICAL (GENERAL) HISTORY Medical History History ICD Code unable to tolerate any statins discussed colonoscopy again 2014; Negati ve Cologuard 01/06/2019 refuses colonoscopy and cologard 2022 Surgical History Surgery Date(Month/Year) coronary artery bypass graft 1998
--- OUTSIDE RECORDS SUMMARY | 2024-08-14 11:13 | XMS_ITS ---
Author Organization Giovanni Bryant MD Address [address] [place], [place] [phone] Care Team Providers Care Rip Saw Operator Name Role Phone Giovanni Bryant Primary Care Provider [phone] RESULTS Component Value Reference Range Notes Complete Blood Count Auto Di ff Reviewed date:02/11/2024 04:30:18 PM Interpretation: Performing Lab:[facility], [address] [place] [phone] Notes/Report: White Blood Count 8.6 4.8-10.8 X10*3/uL [...] NRBC Abs Auto 0.000 0.0-0.012 X10*3/uL Comprehensive [place]. Panel Fa st Reviewed date:02/11/2024 12:55:14 PM Interpretation: Performing Lab:[facility], [address] [place] [phone] Notes/Report: Sodium 140 135-145 mmol/L Potassium 3.7 3.3-5.1 mmol/L Chloride 100 96-108 mmol/L Carbon Dioxide 28 22-29 mmol/L Anion Gap 16 12-20 Blood Urea Nitrogen 20 9-16 mg/dL Creatinine 1.67 0.5-1.4 mg/dL Estimated Glomerular Filt Rate 41 NOTE: For -Slovak individuals, multiply the result by 1.210. Chronic [...] Panel Reviewed date:02/11/2024 12:41:04 PM Interpretation: Performing Lab:[address] [phone] Notes/Report: Triglycerides 85 <150 mg/dL Desirable Triglyceride: [...] (Free>4and<10) Reviewed date:02/11/2024 12:42:33 PM Interpretation: Performing Lab:[address] [phone] Notes/Report: PSA,Total (Free>4and<10) 1.93 0.00-4.00 ng/mL A [...] between 4.0 and 10.0 ng/mL. PSA methodology: Contentfulnity i Chemiluminescent Microparticle Immunoassay (CMIA) Hemoglobin A1c Reviewed date:02/11/2024 12:27:56 PM Interpretation: Performing Lab:[facility], [address] [facility], [place] [phone] Notes/Report: Hemoglobin A1c % 5.9 <6.0 % [...] average glucose, using the formula of the W3A-Lvbyrpy Average Glucose study (ADAG), Diabetes Care, Vol.31,#8, Apr. 2007 REASON FOR VISIT yearly labs VITAL SIGNS Height 67 in 02/11/2024 Encounters Encounter Location Date Provider Diagnosis Giovanni Bryant MD [address] [place] [address] [place] [id number] 02/11/2024 Giovanni Bryant Blood tests for rout ine general physical examination Z00.00 ; Type 2 diabetes mellitus without complication E11.9 ; Essential hypertension I10 ; Low HDL (under 40) E78.6 and Pure hypercholesterolemia E78.00 ASSESSMENTS Encounter Date Diagnosis Assessment Notes Treatment Notes Treatment Clinical Notes 02/11/2024 [address] tests [address] rout ine general physical examination (ICD-10 - Z00.00) 02/11/2024 Type 2 diabetes sami itus without complication (ICD-10 - E11.9) 02/11/2024 Essential hypertensi on (ICD-10 - I10) 02/11/2024 Low HDL (under 40) ( ICD-10 - E78.6) 02/11/2024 Pure hypercholestero lemia (ICD-10 - E78.00) PLAN OF TREATMENT Next Appt Details Provider Name:Giovanni thompson, 09/08/2024 09:00:00 AM, [address] [place] [address], [address], [phone], Provider Name:Giovanni thompson, 02/09/2025 07:30:00 AM, [address] [place] [address], [address], [phone], Provider Name:Giovanni thompson, 02/16/2025 09:30:00 AM, [address] [place] [address], [address], [place], [phone],
[2024-08-14 12:05] LABS: Estimated Average Glucose 117 mg/dL; Hemoglobin A1C 137.1855 umol/L; Hemoglobin A1c % 5.7 % (<6.0); Total Hemoglobin (HGBA1C) 3578.6661 umol/L
[2024-08-14 12:09] LABS: Alanine Aminotransferase 10 U/L (0-40); Albumin Level 4.3 g/dL (3.5-5.0); Alkaline Phosphatase 61 U/L (39-117); Aspartate Amino Transferase 21 U/L (5-37); Bilirubin Direct 0.3 mg/dL (0.0-0.5); Bilirubin Total 0.9 mg/dL (0.0-1.0); Cholesterol 158 mg/dL (<200); Glucose Fasting 97 mg/dL (60-99); HDL Cholesterol 53 mg/dL (>40); LDL Cholesterol Calculated 83 mg/dL (<100); Total Protein 7.3 g/dL (6.5-8.0); Triglycerides 114 mg/dL (<150)
[2024-08-14 12:23] LABS: Reflex LDLD? No
== END 2024-08-14 11:10 | disposition home or self-care (01) ==
LOC: HO.LNP 11:09
PROVIDERS: Visit Provider Internal Medicine
DX: E11.9 Type 2 diabetes mellitus without complications (principal); E78.00 Pure hypercholesterolemia, unspecified
CPT/HCPCS: 80061; 80076; 82947; 83036

== ENCOUNTER 2025-02-09 10:34 | Outpatient (REF) | payer MEDICARE, OTHER, SELFPAY ==
[2025-02-09 10:36] LABS: MANUAL DIFF FLAG NO
[2025-02-09 10:42] LABS: Basophils Absolute Auto 0.1 X10*3/uL (0.0-0.2); Basophils Percent Auto 1.2 % (0-2); Eosinophils Absolute Auto 0.2 X10*3/uL (0.0-0.4); Eosinophils Percent Auto 2.9 % (0-4); Hemoglobin 13.1 g/dl (14.0-18.0); Imm Gran Abs Auto 0.02 X10*3/uL (0.00-0.03); Imm Gran Pct Auto 0.3 % (0.0-0.4); Lymphocytes Absolute Auto 1.8 X10*3/uL (1.2-4.9); Lymphocytes Percent Auto 24.3 % (20-40); Mean Corpuscular HGB Conc 34.5 g/dl (31.0-36.0); Mean Corpuscular Hemoglobin 29.8 pg (27.0-33.0); Mean Corpuscular Volume 86.6 fL (80.0-98.0); Mean Platelet Volume 10.1 fL (9.4-12.4); Monocytes Absolute Auto 0.5 X10*3/uL (0.1-1.2); Monocytes Percent Auto 6.3 % (2-11); Neutrophils Absolute Auto 4.9 x10*3/uL (2.0-8.3); Platelet Count 288 X10*3/uL (160-400); Red Blood Count 4.39 X10*6/uL (4.60-5.80); White Blood Count 7.5 X10*3/uL (4.8-10.8)
[2025-02-09 10:55] LABS: Estimated Average Glucose 111 mg/dL; Hemoglobin A1c % 5.5 % (<6.0)
[2025-02-09 10:57] LABS: Appearance Urine Clear; Color Urine Yellow; Glucose Urine UA Negative (Negative); Leukocyte Esterase Urine Negative (Negative); Nitrite Urine Negative (Negative); Urine Blood Negative (Negative); Urine Ketones Negative (Negative); Urine Protein Negative (Neg-Trace)
[2025-02-09 11:02] LABS: Bacteria Urine None Seen (None Seen); Hyaline Casts Urine 0-2 /LPF (0-2); RBC Urine 0-2 /HPF (0-2); Squamous Epithelial Cell Urine 0-2 /HPF (0-2); WBC Urine 0-5 /HPF (0-5)
[2025-02-09 11:07] LABS: Alanine Aminotransferase 10 U/L (0-40); Albumin Level 4.4 g/dL (3.5-5.0); Alkaline Phosphatase 51 U/L (39-117); Anion Gap 14 (12-20); Aspartate Amino Transferase 21 U/L (5-37); Bilirubin Total 0.8 mg/dL (0.0-1.0); Blood Urea Nitrogen 23 mg/dL (9-16); Calcium 9.6 mg/dL (8.4-10.2); Carbon Dioxide 29 mmol/L (22-29); Chloride 101 mmol/L (96-108); Cholesterol 149 mg/dL (<200); Estimated Glomerular Filt Rate 42; Glucose Fasting 78 mg/dL (60-99); HDL Cholesterol 49 mg/dL (>40); LDL Cholesterol Calculated 80 mg/dL (<100); Potassium 4.2 mmol/L (3.3-5.1); Sodium 140 mmol/L (135-145); Total Protein 6.6 g/dL (6.5-8.0); Triglycerides 101 mg/dL (<150)
[2025-02-09 11:17] LABS: PSA,Total (Free>4and<10) 2.37 ng/mL (0.00-4.00)
[2025-02-09 11:26] LABS: Creatinine Urine 42.48 mg/dL; Microalbumin Urine < 5.0 mg/L
--- OUTSIDE RECORDS SUMMARY | 2025-02-09 12:22 | XMS_ITS | Patient Health Record ---
Author Organization Giovanni Bryant MD Address [address] [place], [place] [id number] Care Team Providers Care Flooring Installer Name Role Phone Giovanni Bryant Primary Care Provider [phone] Allergies Allergen (clinical drug ingredient) Drug/Non Drug Allergy documented on EMR Reaction Allergy Type Onset Date Status liraglutide Victoza ghostly white Drug Allergy A ctive ibuprofen Ibuprofen itch Drug Allergy Active Results Component Value Reference Range Notes Complete Blood Count Auto Di ff Reviewed date:02/11/2024 04:30:18 PM Interpretation: Performing Lab:[facility], [address] [place] [phone] Notes/Report: White Blood Count 8.6 4.8-10.8 X10*3/uL [...] NRBC Abs Auto 0.000 0.0-0.012 X10*3/uL Comprehensive [place]. Panel Fa st Reviewed date:02/11/2024 12:55:14 PM Interpretation: Performing Lab:[facility], [address] [place] [phone] Notes/Report: Sodium 140 135-145 mmol/L Potassium 3.7 3.3-5.1 mmol/L Chloride 100 96-108 mmol/L Carbon Dioxide 28 22-29 mmol/L Anion Gap 16 12-20 Blood Urea Nitrogen 20 9-16 mg/dL Creatinine 1.67 0.5-1.4 mg/dL Estimated Glomerular Filt Rate 41 NOTE: For -[place]onegas[place] individuals, multiply the result by 1.210. Chronic [...] Panel Reviewed date:02/11/2024 12:41:04 PM Interpretation: Performing Lab:[facility], [address] [place] [phone] Notes/Report: Triglycerides 85 <150 mg/dL Desirable Triglyceride: [...] (Free>4and<10) Reviewed date:02/11/2024 12:42:33 PM Interpretation: Performing Lab:[facility], [address] [place] [phone] Notes/Report: PSA,Total (Free>4and<10) 1.93 0.00-4.00 ng/mL A [...] A1c Reviewed date:02/11/2024 12:27:56 PM Interpretation: Performing Lab:[address] [phone] Notes/Report: Hemoglobin A1c % 5.9 <6.0 % [...] average glucose, using the formula of the T6C-Mnekkey Average Glucose study (ADAG), Diabetes Care, Vol.31,#8, 2007 Liver Panel Reviewed date:08/15/2024 02:38:42 PM Interpretation: Performing Lab:[address] [phone] Notes/Report: Bilirubin Total 0.9 0.0-1.0 mg/dL Bilirubin Direct 0.3 0.0-0.5 mg/dL Aspartate Amino Transferase 21 5-37 U/L Alanine Aminotransferase 10 0-40 U/L Total Protein 7.3 6.5-8.0 g/dL Albumin Level 4.3 3.5-5.0 g/dL Alkaline Phosphatase 61 39-117 U/L Glucose Fasting Reviewed date:08/15/2024 02:39:29 PM Interpretation: Performing Lab:[address] [phone] Notes/Report: Glucose Fasting 97 60-99 mg/dL Lipid Panel with Reflex Reviewed date:08/15/2024 02:45:16 PM Interpretation: Performing Lab:[address] [phone] Notes/Report: Triglycerides 114 <150 mg/dL Desirable Triglyceride: less than 150 mg/dL Borderline High Triglyceride 150-199 mg/dL High Triglyceride: 200-499 mg/dL Very High Triglyceride: greater than or equal to 5OO mg/dL Cholesterol 158 <200 mg/dL Desirable Cholesterol: less than 200 mg/dL Borderline High Cholesterol: 200-239 mg/dL High Cholesterol: greater than 239 mg/dL LDL Cholesterol Calculated 83 <100 mg/dL Desirable LDL: less than 100 mg/dL Near Optimal/Above Optimal LDL: 110-129 mg/dL Borderline High LDL: 130-159 mg/dL High LDL: 160-189 mg/dL Very High LDL: greater than or equal to 190 mg/dL HDL Cholesterol 53 >40 mg/dL Desirable HDL: greater than 40 mg/dL Note: This HDL assay may give artificially low results in patients with liver disease. Hemoglobin A1c Reviewed date:08/15/2024 02:39:16 PM Interpretation: Performing Lab:[address] [phone] Notes/Report: Hemoglobin A1c % 5.7 <6.0 % Hemoglobin A1C Reference Range Adults: 4.8 - 6.0 % Non diabetic: < 6.0 % Goal: < 7.0 % Additional Action Suggested: > 8.0 % Note: Hemoglobin A1c results are invalid for patients with abnormal amounts of HbF. Blood transfusions may impact the HbA1c concentration in the patient sample. Estimated Average Glucose 117 eAG = Estimated average glucose which is %A1C expressed as average glucose, using the formula of the Y6Q-Whjoeto Average Glucose study (ADAG), Diabetes Care, Vol.31,#8, Apr. 2007 Microalbumin, Random Reviewed date:02/13/2024 12:07:08 PM Interpretation: Performing Lab:[facility], [address] [place] [phone] Notes/Report: Creatinine Urine 74.03 Microalbumin Urine 12.0 Microalbum/Creatinine Ratio Ur 16.2 <30 ug/mg cr Albumin/Creatinine Ratio Reference Ranges: Normal: < 30 ug/mg creatinine Microalbuminuria: 30 - 300 ug/mg creatinine Clinical Albuminuria: > 300 ug/mg creatinine UA ClnCatch+Micro w/rflx Cul t Reviewed date:02/13/2024 12:25:18 PM Interpretation: Performing Lab:[facility], [address] [place] [phone] Notes/Report: Urine, Clean Catch Color Urine Yellow Appearance Urine Clear PH 6.5 5.0-9.0 Glucose Urine UA Negative Negative mg/dL Urine Blood Negative Negative Specific [place] - Urine 1.010 1.005-1.025 Urine Protein Negative Neg-Trace mg/dL Urine Ketones Negative Negative mg/dL Nitrite Urine Negative Negative Leukocyte Esterase Urine Negative Negative RBC Urine 0-2 0-2 /HPF WBC Urine 0-5 0-5 /HPF Squamous Epithelial Cell Urine 0-2 0-2 /HPF Bacteria Urine None Seen None Seen Hyaline Casts Urine 0-2 0-2 /LPF Hold Gold Reviewed date:08/15/2024 02:38:14 PM Interpretation: Performing Lab:[facility], [address] [place] [phone] Notes/Report: Aurora Flores See Note Specimen held untested for 24 hours; Call to request Chemistry testing. Reason For Referral No Information Medications Medication SIG (Take, Route, Frequency, Duration) Notes Start Date End Date Status Clobetasol Propionate 0.05 % 1 application to affected area Externally Twice a day for 10 day(s) 03/20/2018 Not-Taking Furosemide 40 MG TAKE 1 TABLET BY SJ EVERY DAY for 90 Active Ciclopirox 0.77% as directed applied topically twice a day for 30 days 03/01/2020 Not-Taking metFORMIN HCl ER 500 MG TAKE 2 TABLETS B Y MOUTH TWICE A DAY Active Atorvastatin Calcium 10 MG TAKE 1 TABLET BY MOUTH EVERY DAY Active amLODIPine Besylate 10 MG TAKE 1 TABLET BY MOUTH EVERY DAY Active FreeStyle Lite Test - USE TO TEST BLOOD SUGAR TWICE PER DAY for 50 Active Vitamin D 1000 UNIT 1 capsule Orally Onc e a day Active Aspirin 325 MG 1 tablet Orally Once a day for 30 day(s) Active Immunizations Vaccine Route Administration Date Status Comme nts [...] Unknown 05/26/2015 Refused TDaP Unknown 07/22/2015 Refused Social History Tobacco Use: Social History Observation Description Date Details (start date - stop date) Former Smoker NA - NA Tobacco Use/Smoking Question Answer Notes Patient is a former smoker How long has it been since y ou last smoked? > 10 years Additional Findings: Tobacco Non-User Fo rmer smoker, currently using no form of tobacco Alcohol Screen Question Answer Notes Did you have a drink containing alcohol in the p ast year? No Points 0 Interpretation Negative Problems Problem Type SNOMED Code ICD Code Onset Dates Problem Status W/U Status Risk Notes Problem CRF (chronic yinka al failure) (N18.9) Active confirmed Problem 18308826 Coronary atherosclerosis due to lipid rich plaque (I25.83) Active confirmed Problem 003107656 Dupuytren contra cture (M72.0) Active confirmed Problem 86060307 Essential hypert ension (I10) Active confirmed Problem 45010153 Type 2 diabetes mellitus without complication (E11.9) Active confirmed Problem 681136652 Low HDL (under 4 0) (E78.6) Active confirmed Problem 870892588358353 Stenosis of righ t carotid artery (I65.21) Active confirmed Problem 280494065 Morbid obesity d ue to excess calories (E66.01) Active confirmed Problem 95249224 Diabetic polyneuropathy associated with type 2 diabetes mellitus (E11.42) Active confirmed Problem 03618055459604 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 still wants to get lower. wants 185 Height 67 in 09/08/2024 weight is down 13 pounds since 02-13-24 / trying to lose weight. still wants to get lower. wants 185 Blood pressure systolic 112 mm Hg 09/08/2024 weig ht is down 13 pounds since 02-13-24 / trying to lose weight. still wants to get lower. wants 185 Weight 191 lbs 09/08/2024 weight is down 13 pounds since 02-13-24 / trying to lose weight. still wants to get lower. wants 185 BMI 29.91 kg/m2 09/08/2024 weight is down 13 pounds since 02-13-24 / trying to lose weight. still wants to get lower. wants 185 Encounters Encounter Location Date Provider Diagnosis Giovanni Bryant MD [address] [place] [id number] 02/11/2024 Giovanni Bryant Blood tests for rout ine general physical examination Z00.00 ; Type 2 diabetes mellitus without complication E11.9 ; Essential hypertension I10 ; Low HDL (under 40) E78.6 and Pure hypercholesterolemia E78.00 Giovanni Bryant MD [address] [id number] 08/14/2024 Giovanni Bryant Type 2 diabetes sami itus without complication E11.9 and Pure hypercholesterolemia E78.00 Giovanni Bryant MD [address] [id number] 02/13/2024 Giovanni Bryant Type 2 diabetes sami itus without complication E11.9 ; Essential hypertension I10 ; Pure hypercholesterolemia E78.00 ; Bilateral carotid artery disease, unspecified type I77.9 ; Colon cancer screening Z12.11 and Depression screening Z13.31 Giovanni Bryant MD [address] [id number] 09/08/2024 Giovanni Bryant Type 2 diabetes sami itus without complication E11.9 ; Essential hypertension I10 ; Low HDL (under 40) E78.6 and Morbid obesity due to excess calories E66.01 Giovanni Bryant MD [address] [place] [id number] 11/16/2024 Giovanni Bryant MD [address] [id number] 11/19/2024 Giovanni Bryant Assessments Encounter Date Diagnosis (ICD Code) Assessment Notes Treatment Notes Treatment Clinical Notes Section Notes 02/11/2024 [address] tests [address] ine general physical examination (ICD-10 - Z00.00) 02/11/2024 Type 2 diabetes sami itus without complication (ICD-10 - E11.9) 08/14/2024 Type 2 diabetes sami itus without complication (ICD-10 - E11.9) 08/14/2024 Pure hypercholesterolemia (ICD-10 - E78.00) 02/13/2024 Type 2 diabetes sami itus without complication (ICD-10 - E11.9) stable, will continue current regiment 02/13/2024 Essential hypertensi on (ICD-10 - I10) stable, will continue current regiment 09/08/2024 Type 2 diabetes sami itus without complication (ICD-10 - E11.9) doing great on diet, will cntnue current regiment 09/08/2024 Essential hypertensi on (ICD-10 - I10) no light headedness, will continue current regiment 02/11/2024 Essential hypertensi on (ICD-10 - I10) 02/13/2024 Pure hypercholesterolemia (ICD-10 - E78.00) stable, will continue current regiment 09/08/2024 Low HDL (under 40) (ICD-10 - E78.6) has gone up with the weight loss, will cntiue curent regiment 02/11/2024 Low HDL (under 40) (ICD-10 - E78.6) 02/13/2024 Bilateral carotid ar asim disease, unspecified type (ICD-10 - I77.9) stable, followed by vascular specialist 09/08/2024 Morbid obesity due t o excess calories (ICD-10 - E66.01) has gone on a diet and is doing great, will continue current regiment and will contiue to monitor 02/11/2024 Pure hypercholesterolemia (ICD-10 - E78.00) 02/13/2024 Colon cancer screeni ng (ICD-10 - Z12.11) guaiac negative 02/13/2024 Depression screening (ICD-10 - Z13.31) negative screen Plan Of Treatment Pending Test Test Name Order Date Electrocardiogram (EKG) 12/25/2018 XR CHEST 2 VIEW PA & LAT 12/21/2011 US CAROTID BILATERAL DOPPLER 08/13/2022 US CAROTID BILATERAL DOPPLER 01/17/2021 Future Test Test Name Order Date US CAROTID BILATERAL DOPPLER 11/19/2023 Next Appt Details Provider Name:Giovanni Amezquita ier, 02/16/2025 09:30:00 AM, [address], [address], [place], [place], [id number], Insurance Providers Payer Name Payer Address Payer Phone Subscriber Number Group Number Insured Name Patient Relationship to Insured Coverage Start Date Coverage End Date MEDIC[employer] [address] [place] [address] [id number] Jono Biggs Self - patient is the insured [facility] [address] [place] [phone] [id number] Jono Biggs Self - patient is the insured Medical (General) History Medical History History ICD Code unable to tolerate any statins discussed colonoscopy again 2014; Negati ve Cologuard 01/06/2019 refuses colonoscopy and cologard 2022 Surgical History Surgery Date(Month/Year) coronary artery bypass graft 1998
== END 2025-02-09 10:35 | disposition home or self-care (01) ==
LOC: HO.LNP 10:34
PROVIDERS: Visit Provider Internal Medicine
DX: E11.9 Type 2 diabetes mellitus without complications (principal); I10 Essential (primary) hypertension; E78.6 Lipoprotein deficiency; N18.9 Chronic kidney disease, unspecified
CPT/HCPCS: 80053; 80061; 81001; 82043; 82570; 83036; 84153; 85025

== ENCOUNTER 2025-04-06 13:49 | Outpatient (REF) | payer MEDICARE, SELFPAY ==
--- NOTE | ~2025-04-06 | US_ITS ---
EXAMINATION: US EXTRACRANIAL CAROTID DUPLEX, BILATERAL CLINICAL INFORMATION: Follow-up carotid stenosis COMPARISON: 12/04/2023 TECHNIQUE: Real-time ultrasound and Doppler techniques (integrating B-mode 2-D vascular images, Doppler spectral analysis and color-flow Doppler imaging) were utilized to interrogate the extracranial carotid arteries, the vertebral arteries and proximal subclavian arteries bilaterally. The degree of stenosis is determined by criteria similar to NASCET. FINDINGS: Right Side: 1. There is severe mixed echogenicity atherosclerotic plaque seen in the bifurcation/proximal ICA region. 2. The common carotid artery PSV proximally is 59 cm/s and distally 90 cm/s. 3. The proximal internal carotid artery velocities are 133 cm/s systolic and 23 cm/s diastolic. Previously 145 cm/s 4. The proximal external carotid artery PSV is 143 cm/s. 5. The vertebral artery shows antegrade flow. 6. The subclavian artery waveforms are triphasic. ICA/CCA ratio = 1.5 Left Side: 1. There is severe atherosclerotic plaque seen in the bifurcation/proximal ICA region. 2. The common carotid artery PSV proximally is 74 cm/s and distally 84 cm/s. 3. The proximal internal carotid artery velocities are 104 cm/s systolic and 31 cm/s diastolic. Procedure 93 cm/s 4. The proximal external carotid artery PSV is 137 cm/s. 5. The vertebral artery shows antegrade flow. 6. The subclavian artery waveforms are biphasic. ICA/CCA ratio = 1.2 US/US carotid duplex BI IMPRESSION: 1. RIGHT: Possible hemodynamically significant stenosis. There is severe plaque in the carotid bulb. Peak systolic velocity in the internal carotid artery is borderline/mildly elevated but the ICA/CCA ratio is within normal limits. 2. LEFT: No hemodynamically significant stenosis. 3. There is no change in the category severity of disease when compared to the previous study dated 12/04/2023. Electronically signed by: Daljit Delgado MD 04/06/2025 02:39 PM EDT
--- OUTSIDE RECORDS SUMMARY | 2025-04-06 14:30 | XMS_ITS | Patient Health Record ---
Author Organization Giovanni Bryant MD Address [address] [place], [place] [id number] Care Team Providers Care Facing End Trimmer Name Role Phone Giovanni Bryant Primary Care Provider [phone] Allergies Allergen (clinical drug ingredient) Drug/Non Drug Allergy documented on EMR Reaction Allergy Type Onset Date Status liraglutide Victoza ghostly white Drug Allergy A ctive ibuprofen Ibuprofen itch Drug Allergy Active Results Component Value Reference Range Notes Liver Panel Reviewed date:08/15/2024 02:38:42 PM Interpretation: Performing Lab:[facility], [address] [place] [phone] Notes/Report: Bilirubin Total 0.9 0.0-1.0 mg/dL Bilirubin Direct 0.3 0.0-0.5 mg/dL Aspartate Amino Transferase 21 5-37 U/L Alanine Aminotransferase 10 0-40 U/L Total Protein 7.3 6.5-8.0 g/dL Albumin Level 4.3 3.5-5.0 g/dL Alkaline Phosphatase 61 39-117 U/L Glucose Fasting Reviewed date:08/15/2024 02:39:29 PM Interpretation: Performing Lab:[facility], [address] [place] [phone] Notes/Report: Glucose Fasting 97 60-99 mg/dL Lipid Panel with Reflex Reviewed date:08/15/2024 02:45:16 PM Interpretation: Performing Lab:[facility], [address] [place] [phone] Notes/Report: Triglycerides 114 <150 mg/dL Desirable Triglyceride: [...] A1c Reviewed date:08/15/2024 02:39:16 PM Interpretation: Performing Lab:[facility], [address] [place] [phone] Notes/Report: Hemoglobin A1c % 5.7 <6.0 % [...] average glucose, using the formula of the X1Z-Lfhgaqy Average Glucose study (ADAG), Diabetes Care, Vol.31,#8, 2007 Occult Blood, Stool, Guaiac Reviewed date:02/16/2025 11:00:05 AM Interpretation:Negative Performing Lab: Notes/Report: Negative Occult Blood, Stool, Guaiac neg Aurora Flores Reviewed date:08/15/2024 02:38:14 PM Interpretation: Performing Lab:[facility], [address] [place] [address], [place] [phone] Notes/Report: Aurora Flores See Note Specimen held untested for 24 hours; Call to request Chemistry testing. Reason For Referral Reason Stenosis of right in ternal carotid artery with Cerebral infarction Diagnosis 1 Stenosis of right in ternal carotid artery with cerebral infarction (I63.231) Referral Organization Giovanni Bryant MD Referring Provider First Name Giovanni Referring Provider Last Name Annette Referring Provider Speciality Internal M edicine Referred Provider TERRY RAZO Referred Provider Specialty Vascular [employer] [employer] General Notes Sandra Harrington 0 02/22/2025 11:20:10 AM >referral info faxed, Sandra Harrington 03/11/2025 03:16:56 PM > was told to call next week appt is being worked on, Sandra Harrington 03/26/2025 03:13:15 PM > patient is aware of appt this is for [facility] and they will be making him a follow up appt Referral Priority Routine Referral Appointment Date 04/06/2025 Medications Medication SIG (Take, Route, Frequency, Duration) Notes Start Date End Date Status Atorvastatin Calcium 10 MG TAKE 1 TABLET BY MOUTH EVERY DAY Active metFORMIN HCl ER 500 MG 1 tab Once a day Active FreeStyle Lite Test - USE TO TEST BLOOD SUGAR TWICE PER DAY for 50 Active Vitamin D 1000 UNIT 1 capsule Orally Onc e a day Active Aspirin 81 MG 1 tablet Orally Once a day for 30 days Active amLODIPine Besylate 10 MG TAKE 1 TABLET BY MOUTH EVERY DAY Active Furosemide 40 MG TAKE 1 TABLET BY SJ TH EVERY DAY Active Ciclopirox 0.77% as directed applied topically twice a day for 30 days 03/01/2020 Not-Taking Clobetasol Propionate 0.05 % 1 application to affected area Externally Twice a day for 10 day(s) 03/20/2018 Not-Taking Immunizations Vaccine Route Administration Date Status Comme [...] yinka al failure) (N18.9) Active confirmed Problem 63185755 Coronary atherosclerosis due to lipid rich plaque (I25.83) Active confirmed Problem 552539834 Dupuytren contra cture (M72.0) Active confirmed Problem 14221655 Essential hypert ension (I10) Active confirmed Problem 84634953 Type 2 diabetes mellitus without complication (E11.9) Active confirmed Problem 458402579 Low HDL (under 4 0) (E78.6) Active confirmed Problem 081344634673554 Stenosis of righ t carotid artery (I65.21) Active confirmed Problem 597898346 Morbid obesity d ue to excess calories (E66.01) Active confirmed Problem 14139621 Diabetic polyneuropathy associated with type 2 diabetes mellitus (E11.42) Active confirmed Problem 32852625746015 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.231) Active confirmed Problem 892311699 Pure hypercholesterolemia (E78.00) Active confirmed Problem 870541869 Bilateral caroti d artery disease, unspecified type (I77.9) Active confirmed Vital Signs Blood pressure diastolic 54 mm Hg 02/16/2025 jordan ght is down 16 pounds since 09-08-24 Height 67 in 02/16/2025 weight is down 16 pounds since 09-08-24 Blood pressure systolic 118 mm Hg 02/16/2025 jordang ht is down 16 pounds since 09-08-24 Weight 175 lbs 02/16/2025 weight is down 16 pounds since 09-08-24 BMI 27.41 kg/m2 02/16/2025 weight is down 16 pounds since 09-08-24 Encounters Encounter Location Date Provider Diagnosis Giovanni Bryant MD [address] [place] [id number] 08/14/2024 Giovanni Bryant Type 2 diabetes sami itus without complication E11.9 and Pure hypercholesterolemia E78.00 Giovanni Bryant MD [address] [address] [id number] 09/08/2024 Giovanni Bryant Type 2 diabetes sami itus without complication E11.9 ; Essential hypertension I10 ; Low HDL (under 40) E78.6 and Morbid obesity due to excess calories E66.01 Giovanni Bryant MD [address] [place] [id number] 02/16/2025 Giovanni Bryant Type 2 diabetes sami itus without complication E11.9 ; Essential hypertension I10 ; Stenosis of right internal carotid artery with cerebral infarction I63.231 ; Weight loss R63.4 ; Encounter for screening for malignant neoplasm of colon Z12.11 ; Encounter for screening for malignant neoplasm of rectum Z12.12 and Pure hypercholesterolemia E78.00 Giovanni Bryant MD [address] [place] [id number] 11/16/2024 Giovanni Bryant MD [address] [place] [address] [address] [place] [id number] 11/19/2024 Giovanni Bryant Assessments Encounter Date Diagnosis (ICD Code) Assessment Notes Treatment Notes Treatment Clinical Notes Section Notes 08/14/2024 Type 2 diabetes sami itus without complication (ICD-10 - E11.9) 08/14/2024 Pure hypercholesterolemia (ICD-10 - E78.00) 09/08/2024 Type 2 diabetes sami itus without complication (ICD-10 - E11.9) doing great on diet, will cntnue current regiment 09/08/2024 Essential hypertensi on (ICD-10 - I10) no light headedness, will continue current regiment 02/16/2025 Type 2 diabetes sami itus without complication (ICD-10 - E11.9) stable, will continue curent regiment 02/16/2025 Essential hypertensi on (ICD-10 - I10) doing well, will continue current regiment 09/08/2024 Low HDL (under 40) (ICD-10 - E78.6) has gone up with the weight loss, will cntiue curent regiment 02/16/2025 Stenosis of right internal carotid artery with cerebral infarction (ICD-10 - I63.231) folllowed by dr razo. referral back to him 09/08/2024 Morbid obesity due t o excess calories (ICD-10 - E66.01) has gone on a diet and is doing great, will continue current regiment and will contiue to monitor 02/16/2025 Weight loss (ICD-10 - R63.4) 02/16/2025 Encounter for screen ing for malignant neoplasm of colon (ICD-10 - Z12.11) with his confusion and slow movement don't feel that he could make it through a colonoscopy/ order faxed to [employer] cece Fernando today negative 02/16/2025 Encounter for screen ing for malignant neoplasm of rectum (ICD-10 - Z12.12) cologuard ordered 02/16/2025 Pure hypercholesterolemia (ICD-10 - E78.00) stable, will continue to monitor Plan Of Treatment Pending Test Test Name Order Date Electrocardiogram (EKG) 12/25/2018 XR CHEST 2 VIEW PA & LAT 12/21/2011 US CAROTID BILATERAL DOPPLER 01/17/2021 US CAROTID BILATERAL DOPPLER 08/13/2022 COLOGUARD 02/16/2025 Future Test Test Name Order Date US CAROTID BILATERAL DOPPLER 11/19/2023 Next Appt Details Provider Name:Giovanni thompson, 05/18/2025 10:00:00 AM, [address] [place] [address], [address], [place], [place], [phone], Provider Name:Giovanni thompson, 02/15/2026 07:30:00 AM, [address], [address], [place], [place], [phone], Provider Name:Giovanni Amezquita jay, 02/22/2026 09:30:00 AM, [address], [address], [place], [place], [phone], Insurance Providers Payer Name Payer Address Payer Phone Subscriber Number Group Number Insured Name Patient Relationship to Insured Coverage Start Date Coverage End Date MEDICARE [employer] [address] [place] [address] [id number] Jono Biggs Self - patient is the insured [facility] [address] [place] [address] [phone] [id number] Jono Biggs Self - patient is the insured Medical (General) History Medical History History ICD Code unable to tolerate any statins discussed colonoscopy again 2014; Negati ve Cologuard 01/06/2019 refuses colonoscopy and cologard 2022 Surgical History Surgery Date(Month/Year) coronary artery bypass graft 1998
--- OUTSIDE RECORDS SUMMARY | 2025-04-06 14:30 | XMS_ITS | Clinical Summary ---
Author Organization [facility] Facility Address [address] [place] [id number] Care Team Providers Care Technology Analyst Name Role Phone Unavailable Primary Care Provider Unavailabl e Family History Medical History Relation Comments Diabetes Mother Heart disease Mother Relation Status Comments Father Mother Social History Tobacco Use Types Packs/Day Years Used Date Smoking Tobacco: Never Alcohol Use Standard Drinks/Week Comments No 0 (1 standard drink = 0.6 oz pur e alcohol) Sex and Gender Information Value Date Recorded Sex Assigned at Not on file Legal Sex Male 4:48 PM EST Gender Identity Not on file Sexual Orientation Not on file Plan of Treatment Health Maintenance Due Date Last Done Comments Pneumococcal Vaccine: 50+ Ye ars (1 of 2 - PCV) 1972 Colorectal Cancer Screening: Annual FOBT 2002 Colorectal Cancer Screening: Colonoscopy 2002 Colorectal Cancer Screening: Sigmoidoscopy 2002 Influenza Vaccine (#1) 2025 Hepatitis B Vaccine Aged Out No longe r eligible based on patient's age to complete this topic Insurance Comprehensive Benefits Comprehensive Benefits
== END 2025-04-06 13:50 | disposition home or self-care (01) ==
LOC: HO.HMGCX 13:49
PROVIDERS: PCP Internal Medicine; Visit Provider Surgery Vascular Surgery
DX: I65.23 Occlusion and stenosis of bilateral carotid arteries (principal)
CPT/HCPCS: 93880

== ENCOUNTER → 2025-04-06 13:53 | Outpatient (BNV) | payer MEDICARE, SELFPAY | PROVIDERS: PCP Internal Medicine; Visit Provider Radiology Diagnostic Radiology | DX: I65.21 Occlusion and stenosis of right carotid artery (principal) | CPT/HCPCS: 93880 ==

== ENCOUNTER 2025-05-04 14:00 | Outpatient (AMB) | payer MEDICARE, SELFPAY ==
--- NOTE | 2025-05-04 14:08 | MHC.OFFVIS ---
Vital Signs 05/04/25 14:09 05/04/25 14:16 Height 5 ft 8 in Weight 220 lb BMI 33.4 BP 118/70 118/68 Blood Pressure Location Lt brachial Rt brachial Position Sitting Sitting Intake Visit Reasons: 1y follow up s/p Carotid US 04/06/25 Intake Note: 1 yr follow up carotid US 04/06/25. No complaints other than some loss of balance due to spinal issues Disability Insurance Claim Examiner Required: No Accompanied by: Spouse Allergies No Known Allergies Allergy (Verified 05/04/25 14:11) HPI HPI 1y follow up s/p Carotid US 04/06/25: Details: The patient is a 69-year-old male presenting for annual carotid surveillance. Previous carotid ultrasounds conducted on December 04, 2023, and April 06, 2025, revealed no significant changes. He now presents for follow-up with carotid testing. The patient is on a regimen of baby aspirin and a cholesterol-lowering medication. He quit smoking approximately 40 years ago, which is beneficial for his cardiovascular health. [facility] Medical History Hyperlipidemia History of TIAs Hypertension Bilateral carotid artery stenosis Diabetic acidosis, type II Surgical History H/O heart bypass surgery Family History Daughter No problems noted. Son No problems noted. Father No problems noted. Mother No problems noted. Sister No problems noted. Social History Household Members: Spouse Housing: House Do you presently have visiting nurse or other home services: No Comment: Pt refuses bed alarm Patient Tobacco Use Status: Former Tobacco user Tobacco use type: Cigarette service: No Review of Systems Const All systems reviewed & are unremarkable except as noted in HPI and below Reports no additional complaints ENT Reports Normal hearing present Card Denies chest pain, Denies chest pain at rest, Denies chest pain with activity and Denies pedal edema Resp Denies cough GI Denies abdominal pain Musc Denies abnormal gait, Denies muscle cramps and Denies radiating pain into limb Skin/Breast Denies skin ulcer and Denies wounds Neuro Reports Normal hearing present and Denies abnormal gait Psych Reports no additional complaints Physical Exam Vital Signs: Last Vital Signs BP 118/68 05/04/25 14:16 BMI result Body Mass Index 33.4 Const General: cooperative, healthy appearing and comfortable Orientation/consciousness: oriented to person, oriented to place and oriented to time HEENT Head: Yes normal to inspection Neck Neck: Yes normal visual inspection Carotids: no bruits Chest Chest palpation & inspection: normal inspection of the chest Resp Effort & Inspection: normal respiratory effort and able to speak in complete sentences Auscultation: clear to auscultation bilaterally, no crackles, no rales, no rhonchi and no wheezes Cardio Rate: regular rate Rhythm: regular rhythm Heart sounds: S1 normal heart sound present and S2 normal heart sound present Bruits: no carotid bruits Peripheral pulses: Peripheral pulses 2+ throughout GI Inspection: Yes normal to inspection Skin Wounds: no wounds Hair: normal Neuro General: oriented to person, oriented to place and oriented to time Cranial nerves: Yes CN's II-XII intact bilaterally and Yes Normal hearing present Cognition (Neuro): normal cognition Motor exam (neuro): 5/5 motor strength present throughout Extrem Other: venous exam: No significant superficial varicosities or spider telangiectasias, minimal edema General: No clubbing, No cyanosis and No edema Psych Appearance: grossly normal Mental Status: mental status grossly normal Speech and movement: Normal speech and movement present Assessment & Plan Assessment & Plan (1) Bilateral carotid artery stenosis: Code(s): I65.23 - Occlusion and stenosis of bilateral carotid arteries Category: Medical Plan: In short patient has asymptomatic carotid disease. We have reviewed signs and symptoms of a stroke. We also discussed risk factor modification inclusive a healthy diet low in cholesterol. The patient will follow up with us with surveillance ultrasound of the carotids 1 year. Should there be any changes or signs or symptoms of a stroke we will be happy to see them back sooner. Thank you for allowing us to participate in this patient's care. If there are any questions or concerns please do not hesitate to contact us. Plan Patient was informed and verbally consented to the use of an ambient scribe for clinic note documentation during this visit. Orders: Orders US carotid duplex BI 1 Year I65.23 - Occlusion and stenosis of bilateral carotid arteries Patient Instructions: - Continue taking baby aspirin and cholesterol medication as prescribed. - Return for annual carotid ultrasound surveillance. Coding Level of Care Code Est Pt Level 4 (14240) Complex EM visit Add On G2211 Diagnoses Bilateral carotid artery stenosis I65.23
[2025-05-04 14:09] VITALS: BP 118/70; BMI 33.4
[2025-05-04 14:16] VITALS: BP 118/68
--- OUTSIDE RECORDS SUMMARY | 2025-05-04 15:16 | XMS_ITS | Clinical Summary ---
Author Organization [facility] Facility Address [address] [place] [id number] Care Team Providers Care Scraper Tender Name Role Phone Unavailable Primary Care Provider [...]
== END 2025-05-04 14:36 | disposition home or self-care (01) ==
LOC: HO.HVS 14:01
PROVIDERS: PCP Internal Medicine; Referring Provider Surgery Vascular Surgery; Visit Provider Surgery Vascular Surgery
DX: I65.23 Occlusion and stenosis of bilateral carotid arteries (principal)
CPT/HCPCS: 99214; G2211

== ENCOUNTER → 2025-05-04 14:00 | Outpatient (BNVA) | payer MEDICARE, SELFPAY | PROVIDERS: PCP Internal Medicine; Visit Provider Surgery Vascular Surgery | DX: I65.23 Occlusion and stenosis of bilateral carotid arteries (principal) | CPT/HCPCS: 99212 ==